=== PATIENT | female | born 1990 | race Caucasian/White ===

== ENCOUNTER 2018-08-06 18:31 | Emergency (ER) | payer OTHER ==
[2018-08-06 19:00] VITALS: BMI 23.8
--- NOTE | 2018-08-06 19:08 | PDOC ---
History of Present Illness - General Chief Complaint: Vaginal Bleeding Stated Complaint: MISCARRIAGE Time Seen by Provider: 08/06/18 19:08 Past History - Past Medical History Allergies/Adverse Reactions: Allergies Allergy/AdvReac Type Severity Reaction Status Date / Time amoxicillin Allergy Mild diarrhea Verified 08/06/18 18:55 Penicillins Allergy Mild diarrhea Verified 08/06/18 18:55 chlordiazepoxide AdvReac Verified 08/06/18 18:55 [From Librium] ziprasidone HCl [From Geodon] AdvReac Verified 08/06/18 18:55 ziprasidone mesylate AdvReac Verified 08/06/18 18:55 [From Geodon] Home Medications: Ambulatory Orders Lurasidone HCl [Latuda -] 20 mg PO DAILY 05/07/16 Lamotrigine [Lamictal] 100 mg PO BID 07/25/16 Albuterol Sulfate Inhaler - [Ventolin HFA Inhaler -] 2 inh PO Q4H PRN #1 inhaler 08/20/16 Anemia: No Asthma: Yes (Albuterol) Cancer: No Cardiac Disorders: No CVA: No COPD: No CHF: No Dementia: No Diabetes: No GI Disorders: No Disorders: No HTN: No Hypercholesterolemia: No Kidney Stones: No Liver Disease: No Seizures: No Thyroid Disease: No - Surgical History Abdominal Surgery: No Appendectomy: No Cardiac Surgery: No Cholecystectomy: No Lung Surgery: No Neurologic Surgery: No Orthopedic Surgery: Yes (CLUB FOOT [LEFT ] AT ) - Reproductive History PID: No - Immunization History Immunization Up to Date: No - Suicide/Smoking/Psychosocial Hx Smoking History: Current every day smoker Have you smoked in the past 12 months: Yes Number of Cigarettes Smoked Daily: 10 Cigars Per Day: 0 Information on smoking cessation initiated: No 'Breaking Loose' booklet given: 04/25/18 Hx Alcohol Use: No Drug/Substance Use Hx: No Substance Use Type: Alcohol, Cocaine, Heroin, Marijuana Hx Substance Use Treatment: Yes (Rehab facility in [facility]) *Physical Exam - Vital Signs Last Vital Signs Temp Pulse Resp BP Pulse Ox 98.4 F 89 18 126/58 L 100 08/06/18 18:55 08/06/18 18:55 08/06/18 18:55 08/06/18 18:55 08/06/18 18:55
--- NOTE | 2018-08-06 19:33 | PDOC ---
History of Present Illness - General Chief Complaint: Vaginal Bleeding Stated Complaint: MISCARRIAGE Time Seen by Provider: 08/06/18 19:08 - History of Present Illness Initial Comments: 28 year old [id number] ( 3 years prior) with history of substance dependency (IV cocaine, heroine, and EtOH currently on suboxone) presenting with malodorous urine, dark urine, chills, and vaginal bleeding. Patient states that she has had approximately one week of chills with malodorous, dark urine, and mild nausea. She also states that she had a regularly timed but extended menses lasting from 07/27-08/03 (typically lasting 2-3 days). Today at approximately 18:00 she had sudden onset right lower quadrant pain with bright red vaginal bleeding. She denies any active active vomiting, diarrhea, headache , chest pain, SOB, or other symptoms. States that she used some substances during this month. She just got her insurance back so doesn't have any primary care or OBGyn follow up. 08/06/18 19:25 Past History - Past Medical History Allergies/Adverse Reactions: Allergies Allergy/AdvReac Type Severity Reaction Status Date / Time amoxicillin Allergy Mild diarrhea Verified 08/06/18 18:55 Penicillins Allergy Mild diarrhea Verified 08/06/18 18:55 chlordiazepoxide AdvReac Verified 08/06/18 18:55 [From Librium] ziprasidone HCl [From Geodon] AdvReac Verified 08/06/18 18:55 ziprasidone mesylate AdvReac Verified 08/06/18 18:55 [From Geodon] Home Medications: Ambulatory Orders Lurasidone HCl [Latuda -] 20 mg PO DAILY 05/07/16 Lamotrigine [Lamictal] 100 mg PO BID 07/25/16 Albuterol Sulfate Inhaler - [Ventolin HFA Inhaler -] 2 inh PO Q4H PRN #1 inhaler 08/20/16 Anemia: No Asthma: Yes (Albuterol) Cancer: No Cardiac Disorders: No CVA: No COPD: No CHF: No Dementia: No Diabetes: No GI Disorders: No Disorders: No HTN: No Hypercholesterolemia: No Kidney Stones: No Liver Disease: No Seizures: No Thyroid Disease: No - Surgical History Abdominal Surgery: No Appendectomy: No Cardiac Surgery: No Cholecystectomy: No Lung Surgery: No Neurologic Surgery: No Orthopedic Surgery: Yes (CLUB FOOT [LEFT ] AT ) - Reproductive History PID: No - Immunization History Immunization Up to Date: No - Suicide/Smoking/Psychosocial Hx Smoking History: Current every day smoker Have you smoked in the past 12 months: Yes Number of Cigarettes Smoked Daily: 10 Cigars Per Day: 0 Information on smoking cessation initiated: No 'Breaking Loose' booklet given: 04/25/18 Hx Alcohol Use: No Drug/Substance Use Hx: No Substance Use Type: Alcohol, Cocaine, Heroin, Marijuana Hx Substance Use Treatment: Yes (Rehab facility in [facility]) Review of Systems - Review of Systems Constitutional: Yes: Chills. No: Diaphoresis, Fever, Loss of Appetite HEENTM: No: Eye Pain, Blurred Vision, Tearing Respiratory: No: Cough, Orthopnea, Shortness of Breath Cardiac (ROS): No: Chest Pain, Edema, Irregular Heart Rate ABD/GI: Yes: Nausea, Abdominal cramping. No: Abdominal Distended, Diarrhea, Poor Appetite, Poor Fluid Intake, Vomiting : No: Burning, Dysuria, Discharge, Frequency, Hematuria Musculoskeletal: Yes: Back Pain. No: Muscle Weakness Integumentary: Yes: Lesions. No: Flushing, Pruritus, Rash Neurological: No: Headache, Numbness, Paresthesia Psychiatric: Yes: Emotional Problems Endocrine: No: Increased Hunger, Increased Thirst, Increased Urine Hematologic/Lymphatic: No: Anemia, Blood Clots, Easy Bleeding, Easy Bruising, Bleeding Diathesis *Physical Exam - Vital Signs Last Vital Signs Temp Pulse Resp BP Pulse Ox 98.4 F 89 18 126/58 L 100 08/06/18 18:55 08/06/18 18:55 08/06/18 18:55 08/06/18 18:55 08/06/18 18:55 - Physical Exam General Appearance: Yes: Nourished, Appropriately Dressed. No: Apparent Distress HEENT: positive: EOMI, CRISTIANE, Normal ENT Inspection, Normal Voice Neck: positive: Trachea midline, Normal Thyroid, Supple. negative: Tender, Rigid Respiratory/Chest: positive: Lungs Clear, Normal Breath Sounds. negative: Chest Tender, Respiratory Distress, Accessory Muscle Use Cardiovascular: positive: Regular Rhythm, Regular Rate Female Pelvic Exam: positive: cervical os closed, adnexal tenderness (right and left adnexal tenderness), vaginal bleeding (mild amount of blood in posterior vaginal vault with mild actrive bleeding from the cervix. Small clots in the vault). negative: normal external exam (dried blood around vagina), CMT, discharge, lesions Gastrointestinal/Abdominal: positive: Normal Bowel Sounds, Tender Musculoskeletal: positive: Normal Inspection. negative: Decreased Range of Motion Extremity: positive: Normal Capillary Refill, Normal Inspection, Normal Range of Motion. negative: Tender Integumentary: positive: Normal Color, Dry, Warm, Other (small 2 cm rash on right hip which has a small swollen spot in the center) Neurologic: positive: Fully Oriented, Alert, Normal Mood/Affect, Normal Response , Motor Strength 02/28 ED Treatment Course - LABORATORY CBC & Chemistry Diagram: 08/06/18 19:42 08/06/18 19:42 Medical Decision Making - Medical Decision Making 28 year old female with vaginal bleeding for the past few hours. TVUS negative for IUP and did not visualize gross enlargement of ovaries. However, quant at 3300 and cervix is closed. Differential includes ectopic or complete . Patient had an extended episode of vaginal bleeding for approximately 6-7 days a few days prior which she attributed to menses but this may have been an actual miscarriage. Given her cocaine positive utox,this was likely an secondary to sympathomimetic usage. However, right adnexal tenderness with positive beta is still concerning for an unvisualized ectopic. Labs and VSS. Discussed patient with Dr. Negron and he agreed that patient should be seen in two days for a repeat [facility] [place] 08/06/18 22:34 *DC/Admit/Observation/Transfer Diagnosis at time of Disposition: Vaginal bleeding in - Discharge Dispostion Disposition: HOME Condition at time of disposition: Stable Decision to Admit order: No - Referrals Referrals: Neptali Elizondo MD [Staff Physician] - - Patient Instructions Printed Discharge Instructions: DI for Ectopic , DI for Miscarriage Additional Instructions: You may have a that is not in your uterus or you may have had a complete . Our imaging and labs are not completely clear on which it is. It is CRITICAL that you return in two days to have your blood checked again to make sure your blood levels are going down. Please return to the ED right away if you have a lot more bleeding, fevers, chills, or a lot more pain. - Post Discharge Activity
[2018-08-06 19:50] LABS: BASO % 0.7 % (0-2.0); EOS % 1.2 % (0-4.5); HEMATOCRIT 39.4 % (32.4-45.2); HEMOGLOBIN 13.1 GM/dL (10.7-15.3); LYMPH % 29.5 % (8-40); MCH 28.8 pg (25.7-33.7); MCHC 33.2 g/dl (32.0-36.0); MEAN CELL VOLUME 86.8 fl (80-96); MEAN PLT VOLUME 9.3 fl (7.5-11.1); MONO % 6.1 % (3.8-10.2); NEUT % 62.5 % (42.8-82.8); PLATELET COUNT 237 K/MM3 (134-434); RBC 4.54 M/mm3 (3.60-5.2); RDW 15.8 % (11.6-15.6); WHITE BLOOD COUNT 7.2 K/mm3 (4.0-10.0)
[2018-08-06 20:00] LABS: URINE APPEARANCE CLOUDY; URINE BILIRUBIN NEGATIVE (<2.0 mg/dL); URINE COLOR AMBER; URINE GLUCOSE (UA) NEGATIVE (NEGATIVE); URINE KETONE TRACE (NEGATIVE); URINE LEUK ESTERASE 2+ (NEGATIVE); URINE NITRITE POSITIVE (NEGATIVE); URINE PROTEIN 1+ (NEGATIVE); URINE UROBILINOGEN NEGATIVE mg/dL (0.2-1.0)
[2018-08-06] MEDS ORDERED: SODIUM CHLORIDE 1,000 ML IV STA (20:15)
[2018-08-06] MEDS ORDERED: ONDANSETRON 4 MG/2 ML VIAL IVPUSH ONE (20:18)
[2018-08-06 20:22] LABS: INR 0.95 (0.83-1.09); PROTHROMBIN TIME (PATIENT) 11.2 SEC (9.7-13.0)
[2018-08-06] MEDS ORDERED: ONDANSETRON 4 MG/2 ML VIAL ONE (21:04)
[2018-08-06 21:20] LABS: ALBUMIN 3.9 g/dl (3.4-5.0); ALK PHOS 58 U/L (45-117); ANION GAP 7 MMOL/L (8-16); BILIRUBIN,TOTAL 0.5 mg/dL (0.2-1); BLOOD UREA NITROGEN 16 mg/dL (7-18); CALCIUM 9.3 mg/dL (8.5-10.1); CHLORIDE 108 mmol/L (98-107); CO2 26 mmol/L (21-32); CREATININE 0.6 mg/dL (0.55-1.3); GLUCOSE,RANDOM 79 mg/dL (74-106); METHADONE, UR NEGATIVE ng/ml (CUTOFF=300); OPIATES, URI NEGATIVE ng/ml (CUTOFF=300); PHENCYCLIDINE,URINE NEGATIVE ng/ml (CUTOFF=25); POTASSIUM 3.9 mmol/L (3.5-5.1); SGOT/AST 24 U/L (15-37); SGPT/ALT 26 U/L (13-61); SODIUM 141 mmol/L (136-145); URINE AMPHETAMINES NEGATIVE ng/ml (CUTOFF=500); URINE BARBITURATES NEGATIVE ng/ml (CUTOFF=200); URINE BENZODIAZEPINES NEGATIVE ng/ml (CUTOFF=200)
[2018-08-06 21:22] LABS: EPI CELLS FEW /HPF (FEW); URINE BACTERIA MANY /hpf (NONE SEEN); URINE MUCUS MODERATE
[2018-08-06 21:27] LABS: COCAINE, UR POSITIVE ng/ml (CUTOFF=300)
[2018-08-06] MEDS ORDERED: ACETAMINOPHEN 500 MG TABLET (FP) PO ONE (23:05)
[2018-08-06] MEDS ORDERED: ACETAMINOPHEN 325 MG TABLET (FP) ONE (23:06)
--- NOTE | 2018-08-06 23:08 | PDOC ---
Attending Attestation - Resident Resident Name: VikJovanysavanna - ED Attending Attestation I have performed the following: I have examined & evaluated the patient, The case was reviewed & discussed with the resident, I agree w/resident's findings & plan, Exceptions are as noted - HPI HPI: 08/06/18 23:05 28yoF presents w/ RLQ pain and off-cycle vaginal bleeding x today. also reports longer than normal period this month. Found to be UPT + in the ER, pt was unaware that she was . AF, VSS NAD, well appearing pelvic examination as per resident note 28yoF r/o ectopic. - serum beta - official EVUS - INLETTER
[2018-08-06 23:52] VITALS: BP 124/68; PULSE 71; TEMP 98.2
== END 2018-08-06 23:53 | disposition home or self-care (01) ==
LOC: JER 18:31
PROC: 3E0337Z Introduction of Electrolytic and Water Balance Substance into Peripheral Vein, Percutaneous Approach (ICD-10-PCS; principal; 2018-08-06)
PROC: 3E033GC Introduction of Other Therapeutic Substance into Peripheral Vein, Percutaneous Approach (ICD-10-PCS; 2018-08-06)
DX: O26.891 Other specified pregnancy related conditions, first trimester (principal); O20.8 Other hemorrhage in early pregnancy; Z3A.00 Weeks of gestation of pregnancy not specified; Z87.19 Personal history of other diseases of the digestive system; F17.210 Nicotine dependence, cigarettes, uncomplicated; F19.10 Other psychoactive substance abuse, uncomplicated; Z72.89 Other problems related to lifestyle
CPT/HCPCS: 36415; 76817-TC; 80053; 80307; 81003; 81015; 84702; 84703; 85025; 85610; 86850; 86900; 86901; 87086; 87186; 99282-25; J7030

== ENCOUNTER 2018-08-12 12:33 | Emergency (ER) | payer OTHER ==
[2018-08-12 12:59] VITALS: BMI 23.8
--- NOTE | 2018-08-12 13:46 | PDOC ---
History of Present Illness - General Chief Complaint: Pain Stated Complaint: VAGINAL BLEEDING Time Seen by Provider: 08/12/18 13:24 History Source: Patient - History of Present Illness Timing/Duration: reports: constant Past History - Past Medical History Allergies/Adverse Reactions: Allergies Allergy/AdvReac Type Severity Reaction Status Date / Time amoxicillin Allergy Mild diarrhea Verified 08/12/18 12:56 Penicillins Allergy Mild diarrhea Verified 08/12/18 12:56 chlordiazepoxide AdvReac Verified 08/12/18 12:56 [From Librium] ziprasidone HCl [From Geodon] AdvReac Verified 08/12/18 12:56 ziprasidone mesylate AdvReac Verified 08/12/18 12:56 [From Geodon] Home Medications: Ambulatory Orders Lurasidone HCl [Latuda -] 20 mg PO DAILY 05/07/16 Lamotrigine [Lamictal] 100 mg PO BID 07/25/16 Albuterol Sulfate Inhaler - [Ventolin HFA Inhaler -] 2 inh PO Q4H PRN #1 inhaler 08/20/16 Nitrofurantoin Monohyd/M-Cryst [Macrobid -] 100 mg PO BID #14 capsule 08/07/18 Nitrofurantoin Monohyd/M-Cryst [Macrobid -] 100 mg PO BID #13 capsule 08/12/18 Anemia: No Asthma: Yes (Albuterol) Cancer: No Cardiac Disorders: No CVA: No COPD: No CHF: No Dementia: No Diabetes: No GI Disorders: No Disorders: No HTN: No Hypercholesterolemia: No Kidney Stones: No Liver Disease: No Seizures: No Thyroid Disease: No - Surgical History Abdominal Surgery: No Appendectomy: No Cardiac Surgery: No Cholecystectomy: No Lung Surgery: No Neurologic Surgery: No Orthopedic Surgery: Yes (CLUB FOOT [LEFT ] AT ) - Reproductive History PID: No - Suicide/Smoking/Psychosocial Hx Smoking History: Current every day smoker Have you smoked in the past 12 months: Yes Number of Cigarettes Smoked Daily: 10 Cigars Per Day: 0 Information on smoking cessation initiated: No 'Breaking Loose' booklet given: 04/25/18 Hx Alcohol Use: Yes Drug/Substance Use Hx: Yes Substance Use Type: Alcohol, Cocaine, Heroin, Marijuana Hx Substance Use Treatment: Yes (Rehab facility in [facility]) Abd/GI Specific PMHX - Complaint Specific PMHX Hepatitis: No Pancreatitis: No Review of Systems - Review of Systems Constitutional: No: Chills, Fever ABD/GI: Yes: Abdominal cramping. No: Nausea, Vomiting : Yes: Other (foul urine). No: Dysuria Musculoskeletal: Yes: Back Pain *Physical Exam - Vital Signs Last Vital Signs Temp Pulse Resp BP Pulse Ox 98.5 F 114 H 18 106/62 97 08/12/18 12:57 08/12/18 12:57 08/12/18 12:57 08/12/18 12:57 08/12/18 12:57 - Physical Exam General Appearance: Yes: Appropriately Dressed. No: Apparent Distress HEENT: positive: Normal Voice Neck: positive: Supple Respiratory/Chest: negative: Respiratory Distress Female Pelvic Exam: positive: normal external exam, cervical os closed, other ( small amount dark brown discharge). negative: CMT, adnexal tenderness Gastrointestinal/Abdominal: positive: Soft. negative: Tender Musculoskeletal: negative: CVA Tenderness Integumentary: positive: Dry, Warm Neurologic: positive: Fully Oriented, Alert, Normal Mood/Affect ED Treatment Course - RADIOLOGY Radiology Studies Ordered: Category Date Time Status TRANSVAGINAL ULTRASOUND US [US] Stat Ultrasound 08/12/18 13:26 Ordered Medical Decision Making - Medical Decision Making 08/12/18 13:45 28-year-old female, polysubstance abuse, , (s/p spon AB), currently , but unsure how far along as patient did have a period 07/27/2018, but was not a normal period per pt. Patient had shown up in ED about a week ago with vaginal bleeding and abdominal pain and was diagnosed with w/ beta over 3000 with no IUP on ultrasound. Of note, patient is Rh+. Was also diagnosed with UTI, but patient states she did not fill prescription for macrobid (sen on ucx) because she states she was not told prescription was sent. Also failed to follow-up in 2 days for unclear reasons, now here with ongoing vaginal bleeding and abdominal pains though states symptoms have improved. Also complaining of some lower back pain. Denies blood clots, nausea , vomiting, fever or chills See exam R/o ectopic Beta >3 K w/ no IUP/adexnal masses on US 10/11/18 +UTI but has not started abx sent to pharmacy Did not f/u fpr reassessment for unclear reasons Tachy to 114 at triage, improved without intervention, stable otherwise w/ benign abd and dark brown dc in vault (?old blood", os closed -dose of macrobid in ED -RH + per records -rpt beta and US 08/12/18 15:30 Beta today >2500. Ultrasound report pending 08/12/18 16:13 US read as no viable IUP, w/ possible Blood Clots in Uterine Cavity. Patient Informed of Results and told Findings Compatible with Miscarriage. Given [facility] This Week. Perception for Macrobid Sent to Pharmacy. Reasons to Return to ER discussed with Patient *DC/Admit/Observation/Transfer Diagnosis at time of Disposition: Threatened - Discharge Dispostion Disposition: HOME Condition at time of disposition: Fair - Prescriptions Prescriptions: Nitrofurantoin Monohyd/M-Cryst [Macrobid -] 100 mg PO BID #13 capsule - Referrals - Patient Instructions Additional Instructions: Your re-assesment here points to a miscarriage. 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 Please take as directed - Post Discharge Activity
[2018-08-12] MEDS ORDERED: ACETAMINOPHEN 325 MG TABLET (FP) PO ONE (14:22)
[2018-08-12] MEDS ORDERED: NITROFURANTOIN MACROCRYSTAL 50 MG CAPSULE (FP) ONE (14:22)
[2018-08-12] MEDS ORDERED: ACETAMINOPHEN 325 MG TABLET (FP) ONE (14:22)
[2018-08-12 14:25] LABS: URINE APPEARANCE CLOUDY; URINE BILIRUBIN NEGATIVE (<2.0 mg/dL); URINE COLOR AMBER; URINE GLUCOSE (UA) NEGATIVE (NEGATIVE); URINE KETONE NEGATIVE (NEGATIVE); URINE LEUK ESTERASE 2+ (NEGATIVE); URINE NITRITE NEGATIVE (NEGATIVE); URINE PROTEIN NEGATIVE (NEGATIVE)
[2018-08-12] MEDS ORDERED: NITROFURANTOIN MACROCRYSTAL 50 MG CAPSULE (FP) PO SCH (14:30)
[2018-08-12 14:32] LABS: EPI CELLS RARE /HPF (FEW); URINE BACTERIA RARE /hpf (NONE SEEN); URINE MUCUS FEW; YEAST FEW
[2018-08-12 15:49] VITALS: BP 107/60; PULSE 77; TEMP 97.6
== END 2018-08-12 16:22 | disposition home or self-care (01) ==
LOC: JER 12:33
DX: M54.5 Low back pain (principal); O26.891 Other specified pregnancy related conditions, first trimester; Z3A.00 Weeks of gestation of pregnancy not specified; O20.0 Threatened abortion
CPT/HCPCS: 36415; 76830-TC; 81003; 81015; 84702; 99283-25

== ENCOUNTER 2018-08-31 19:05 | Inpatient (IN) | payer OTHER ==
--- NOTE | 2018-08-31 21:56 | HP ---
COWS - Scale Resting Pulse: 2= ME 101-120 Sweatin= Chills/Flushing Restless Observation: 3= Extraneous Movement Pupil Size: 1= Pupils >than Normal Bone or Joint Aches: 1= Mild Discomfort Runny Nose/ Eye Tearin= Runny Nose/Eyes GI Upset > 30mins: 1= Stomach Cramp Tremor Observation: 2= Slight Tremor Visible Yawning Observation: 1= 1-2x During Session Anxiety or Irritability: 2=Irritable/Anxious Goose Flesh Skin: 0=Smooth Skin COWS Score: 16 CIWA Score - CIWA Score Nausea/Vomitin Muscle Tremors: 3 Anxiety: 3 Agitation: 3 Paroxysmal Sweats: 3 Orientation: 0-Oriented Tacttile Disturbances: 3-Moderate Itch/Numb/Burn Auditory Disturbances: 0-None Visual Disturbances: 0-None Headache: 1-Very Mild CIWA-Ar Total Score: 19 Admission ROS BHS - HPI Chief Complaint: " things are getting out of hand " opioid, alcohol and benzo withdrawal symptoms Allergies/Adverse Reactions: Allergies Allergy/AdvReac Type Severity Reaction Status Date / Time amoxicillin Allergy Mild diarrhea Verified 08/12/18 12:56 Penicillins Allergy Mild diarrhea Verified 08/12/18 12:56 chlordiazepoxide AdvReac Verified 08/12/18 12:56 [From Librium] ziprasidone HCl [From Geodon] AdvReac Verified 08/12/18 12:56 ziprasidone mesylate AdvReac Verified 08/12/18 12:56 [From Geodon] History of Present Illness: 28 yo female with hx of nicotine, alcohol, heroin (nasal), marijuana, cocaine, xanax, street BUP, li / ecstasy is here for detox, this is is one of multiple admissions, last detox [facility] detox 04/25/18 -04/27/18 left AMA. Patient was evaluated 08/12/18 for UTI and miscarriage, US read as no viable IUP (see notes from Morgan Flores). Patient was discharged on macrobid for UTI, in which patient reports she did not citrus picker the prescription. PMHX: asthma, depression, bipolar d/o ( non-adherence with meds), reports worsening depression and increase drug use after miscarriage. Denies suicidal / homicidal ideation or hx of suicide attempts. Reports ETOH blackout two days ago. Longest period of sobriety one year, reports relapsed in April 2018. Exam Limitations: No Limitations - Ebola screening Have you traveled outside of the country in the last 21 days: No (N) Have you had contact with anyone from an Ebola affected area: No Do you have a fever: No - Review of Systems Constitutional: Chills, Loss of Appetite, Changes in sleep, Weakness, Unintentional Wgt. Loss EENT: reports: Nose Congestion Respiratory: reports: SOB with Exertion Cardiac: reports: No Symptoms Reported GI: reports: Constipated, Poor Appetite, Poor Fluid Intake, Abdominal cramping : reports: Dysuria Musculoskeletal: reports: Back Pain, Joint Pain Integumentary: reports: Dryness, Pruritus, Sweating Neuro: reports: See HPI, Headache Endocrine: reports: Increased Thirst Hematology: reports: No Symptoms Reported Psychiatric: reports: Orientated x3, Anxious Other Systems: Reviewed and Negative Patient History - Patient Medical History Hx Anemia: No Hx Asthma: Yes (Albuterol) Hx Chronic Obstructive Pulmonary Disease (COPD): No Hx Cancer: No Hx Cardiac Disorders: No Hx Congestive Heart Failure: No Hx Hypertension: No Hx Hypercholesterolemia: No Hx Pacemaker: No HX Cerebrovascular Accident: No Hx Seizures: No Hx Dementia: No Hx Diabetes: No Hx Gastrointestinal Disorders: No Hx Liver Disease: No Hx Genitourinary Disorders: No Hx Sexually Transmitted Disorders: No Hx Renal Disease (ESRD): No Hx Thyroid Disease: No Hx Human Immunodeficiency Virus (HIV): No (Negative 2017) Hx Hepatitis C: No Hx Depression: Yes (Latuda, lamictile) Hx Suicide Attempt: No (Denies suicide attempt and suicidal ideation at this time) Hx Bipolar Disorder: Yes (Latuda, lamictile) Hx Schizophrenia: No - Patient Surgical History Past Surgical History: Yes Hx Neurologic Surgery: No Hx Cataract Extraction: No Hx Cardiac Surgery: No Hx Lung Surgery: No Hx Breast Surgery: No Hx Breast Biopsy: No Hx Abdominal Surgery: No Hx Appendectomy: No Hx Cholecystectomy: No Hx Genitourinary Surgery: No Hx Section: No Hx Orthopedic Surgery: Yes (CLUB FOOT [LEFT ] AT ) Hx Hysterectomy: No Anesthesia Reaction: No - PPD History Previous Implant?: No Documented Results: Negative w/o proof Date: 05/07/16 PPD to be Administered?: Yes - Reproductive History Patient is a Female of Child Bearing Age (11 -55 yrs old): Yes Last Menstrual Period: 08/03/18 Patient : No (see HPI ) - Smoking Cessation Smoking history: Current every day smoker Have you smoked in the past 12 months: Yes Aproximately how many cigarettes per day: 20 Cigars Per Day: 0 Hx Chewing Tobacco Use: No Initiated information on smoking cessation: Yes 'Breaking Loose' booklet given: 08/31/18 - Substance & Tx. History Hx Alcohol Use: Yes Hx Substance Use: Yes Substance Use Type: Alcohol, Cocaine, Heroin, Marijuana, Tranquilizers Hx Substance Use Treatment: Yes ([facility] detox 04/25/18 -04/27/18) - Substances Abused Alcohol Route: Oral Frequency: Daily Amount used: 1 pint liquor Age of first use: 13 Date of Last Use: 08/31/18 Heroin Route: Inhalation Frequency: Daily Amount used: 3 bags Age of first use: 23 Date of Last Use: 08/31/18 Cocaine Route: Inhalation Frequency: Daily Amount used: 2-3 grams Age of first use: 15 Date of Last Use: 08/31/18 klonopin Route: Oral Frequency: Daily Amount used: 3 x2 mg Age of first use: 22 Date of Last Use: 08/31/18 Marijuana/Hashish Route: Smoking Frequency: Daily Amount used: 1 blunt Age of first use: 13 Date of Last Use: 08/31/18 street suboxone Route: Oral Frequency: Daily Amount used: 8 mg Age of first use: 23 Date of Last Use: 08/25/18 Ectasy Route: Oral Frequency: 3-6 times per week Amount used: 1 - 2 pills Age of first use: 18 Date of Last Use: 08/29/18 Family Disease History - Family Disease History Family Disease History: Diabetes: Mother, CA: Grandparent Admission Physical Exam BHS - Physical General Appearance: Yes: Disheveled, Moderate Distress, Thin, Sweating, Anxious HEENTM: Yes: EOMI, Hearing grossly Normal, Normal ENT Inspection, Normocephalic , Normal Voice, CRISTIANE, Pharynx Normal, Tm's normal, Other (cheilithis) Respiratory: Yes: Chest Non-Tender, Lungs Clear, Normal Breath Sounds, No Respiratory Distress, No Accessory Muscle Use Neck: Yes: Within Normal Limits Breast: Yes: Breast Exam Deferred Cardiology: Yes: Regular Rhythm, Tachycardia Abdominal: Yes: Normal Bowel Sounds, Non Tender, Flat, Soft Genitourinary: Yes: Dysuria Back: Yes: Normal Inspection Musculoskeletal: Yes: full range of Motion, Gait Steady, Pelvis Stable, Back pain Extremities: Yes: Normal Capillary Refill, Normal Inspection, Normal Range of Motion, Non-Tender Neurological: Yes: diagrammer II-XII NML intact, Fully Oriented, Alert, Motor Strength 5/5, Depressed Affect Integumentary: Yes: Normal Color, Warm, Diaphoresis, Other (ecchymosis right arm attributes to IV given in ED on 08/12) Lymphatic: Yes: Within Normal Limits - Addiitonal Findings: Hospital 08/12/18 [facility] discharge reviewed with patient. patient [facility] discharge from detox. Patient verbalizes understanding. - Diagnostic (1) UTI (urinary tract infection) Current Visit: Yes Status: Acute Qualifiers: Urinary tract infection type: site unspecified (2) Cocaine dependence Current Visit: Yes Status: Acute Qualifiers: Substance use status: uncomplicated Qualified Code(s): F14.20 - Cocaine dependence, uncomplicated (3) Opioid dependence with withdrawal Current Visit: Yes Status: Acute (4) Alcohol dependence with uncomplicated withdrawal Current Visit: Yes Status: Chronic (5) Asthma Current Visit: Yes Status: Chronic Qualifiers: Asthma severity: unspecified severity Asthma complication type: uncomplicated (6) Cannabis dependence, uncomplicated Current Visit: Yes Status: Acute (7) Depression Current Visit: Yes Status: Suspected Qualifiers: Depression Type: unspecified Qualified Code(s): F32.9 - Major depressive disorder, single episode, unspecified (8) Nicotine dependence Current Visit: Yes Status: Chronic Qualifiers: Nicotine product type: cigarettes Substance use status: uncomplicated Qualified Code(s): F17.210 - Nicotine dependence, cigarettes, uncomplicated (9) Sedative, hypnotic or anxiolytic dependence with withdrawal, uncomplicated Current Visit: Yes Status: Acute Cleared for Admission BHS - Detox or Rehab S Level of Care: Medically Managed Detox Regimen/Protocol: Methadone/Valium BHS Breath Alcohol Content Breath Alcohol Content: 0
[2018-08-31] MEDS ORDERED: diazePAM 5 MG TABLET PO SCH (22:00)
[2018-08-31] MEDS ORDERED: MELATONIN 5 MG TABLETS PO PRN (22:00)
[2018-08-31] MEDS ORDERED: diazePAM 5 MG TABLET PO PRN (22:08)
[2018-08-31] MEDS ORDERED: MAG HYDROX/AL HYDROX/SIMETH 30 ML UNIT-DOSE CUP PO PRN (22:08)
[2018-08-31] MEDS ORDERED: MAGNESIUM HYDROX 2400MG/30ML ORAL SUSPENSION 30 ML CUP PO PRN (22:08)
[2018-08-31] MEDS ORDERED: LOPERAMIDE HCL 2 MG CAPSULE PO PRN (22:08)
[2018-08-31] MEDS ORDERED: MENTHOL/PHENOL 1 EACH UD MM PRN (22:08)
[2018-08-31] MEDS ORDERED: NICOTINE POLACRILEX 2 MG GUM BC PRN (22:08)
[2018-08-31] MEDS ORDERED: guaiFENesin/D-METHORPHAN HB 10 ML UNIT-DOSE CUPS PO PRN (22:08)
[2018-08-31] MEDS ORDERED: MAGNESIUM CITRATE 300 ML BOTTLE PO PRN (22:08)
[2018-08-31] MEDS ORDERED: diazePAM 5 MG TABLET PO ONE (22:08)
[2018-08-31] MEDS ORDERED: ACETAMINOPHEN 325 MG TABLET (FP) PO PRN (22:08)
[2018-08-31] MEDS ORDERED: METHADONE HCL 10 MG TABLET (FOR DETOX USE ONLY) PO ONE ×2 (22:08→23:00)
[2018-08-31] MEDS ORDERED: P-EPHED 60MG/TRIPROLIDI 2.5MG TABLET PO PRN (22:08)
[2018-08-31] MEDS ORDERED: diphenhydrAMINE HCL 25 MG CAPSULE (FP) PO PRN (22:15)
[2018-08-31 23:02] VITALS: BMI 23.2
[2018-09-01] MEDS ORDERED: METHADONE HCL 10 MG TABLET (FOR DETOX USE ONLY) PO ONE ×3 (01:21→23:00)
[2018-09-01] MEDS ORDERED: diazePAM 5 MG TABLET PO ONE (01:21)
[2018-09-01] MEDS: NITROFURANTOIN MACROCRYSTAL 50 MG CAPSULE (FP) PO SCH ×5 (01:45→23:03)
[2018-09-01] MEDS: diazePAM 5 MG TABLET PO PRN ×3 (04:15→17:23)
[2018-09-01] MEDS: diazePAM 5 MG TABLET PO SCH ×3 (05:29→22:25)
[2018-09-01] MEDS ORDERED: METHADONE HCL 10 MG TABLET (FOR DETOX USE ONLY) PO SCH (10:00)
[2018-09-01] MEDS: PRENATAL VITAMINS W/ FOLIC ACID TABLET (FP) PO SCH (10:36)
[2018-09-01] MEDS: NICOTINE 21 MG/24 HOURS TOPICAL PATCH TD SCH (10:38)
--- NOTE | 2018-09-01 10:55 | PN ---
[facility] CIWA - CIWA Score Nausea/Vomitin-No Nausea/No Vomiting Muscle Tremors: 4-Moderate,w/Arms Extend Anxiety: 3 Agitation: 3 Paroxysmal Sweats: 3 Orientation: 0-Oriented Tacttile Disturbances: 0-None Auditory Disturbances: 0-None Visual Disturbances: 0-None Headache: 0-None Present CIWA-Ar Total Score: 13 BHS COWS - Scale Resting Pulse: 1= [place] 81-100 Sweatin=Flushed/Facial Moisture Restless Observation: 1= Difficult to Sit Still Pupil Size: 0= Normal to Room Light Bone or Joint Aches: 2= Severe Diffuse Aches Runny Nose/ Eye Tearin= Nasal Congestion GI Upset > 30mins: 0= None Tremor Observation of Outstretched Hands: 2= Slight Tremor Visible Yawning Observation: 2= >3x During Session Anxiety or Irritability: 2=Irritable/Anxious Goose Flesh Skin: 0=Smooth Skin COWS Score: 13 [facility] Progress Note (SOAP) Subjective: shakes sweats interrupted sleep body aches restless anxiety irritable Objective: 09/01/18 10:55 Vital Signs Temperature 98.9 F 09/01/18 09:50 Pulse Rate 82 09/01/18 09:50 Respiratory Rate 18 09/01/18 09:50 Blood Pressure 119/66 09/01/18 09:50 O2 Sat by Pulse Oximetry (%) labs pending aaox3 lying in bed no acute distress Assessment: 09/01/18 10:59 withdrawal sx Plan: continue detox increase fluids labs pending
[2018-09-01] MEDS: IBUPROFEN 400 MG TABLET (FP) PO PRN ×2 (11:34→22:26)
[2018-09-01 11:42] LABS: HEMATOCRIT 37.7 % (32.4-45.2); HEMOGLOBIN 12.2 GM/dL (10.7-15.3); MCH 28.5 pg (25.7-33.7); MCHC 32.4 g/dl (32.0-36.0); MEAN CELL VOLUME 88.1 fl (80-96); MEAN PLT VOLUME 8.8 fl (7.5-11.1); PLATELET COUNT 236 K/MM3 (134-434); RBC 4.28 M/mm3 (3.60-5.2); RDW 16.2 % (11.6-15.6); WHITE BLOOD COUNT 4.7 K/mm3 (4.0-10.0)
[2018-09-01 11:51] LABS: ALBUMIN 3.4 g/dl (3.4-5.0); ALK PHOS 57 U/L (45-117); ANION GAP 9 MMOL/L (8-16); BILIRUBIN,TOTAL 0.4 mg/dL (0.2-1); BLOOD UREA NITROGEN 18 mg/dL (7-18); CALCIUM 8.6 mg/dL (8.5-10.1); CHLORIDE 98 mmol/L (98-107); CO2 31 mmol/L (21-32); CREATININE 0.6 mg/dL (0.55-1.3); GLUCOSE,RANDOM 95 mg/dL (74-106); POTASSIUM 3.3 mmol/L (3.5-5.1); SGOT/AST 24 U/L (15-37); SGPT/ALT 23 U/L (13-61); SODIUM 138 mmol/L (136-145); TOT PROT 6.6 g/dl (6.4-8.2)
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
--- NOTE | 2018-09-01 15:24 | PN ---
[facility] Progress Note Note: Vital Signs Temperature 98.4 F 09/01/18 13:56 Pulse Rate 84 09/01/18 13:56 Respiratory Rate 18 09/01/18 13:56 Blood Pressure 123/80 09/01/18 13:56 O2 Sat by Pulse Oximetry (%) Laboratory Last Values WBC 4.7 K/mm3 (4.0-10.0) 09/01/18 07:00 RBC 4.28 M/mm3 (3.60-5.2) 09/01/18 07:00 Hgb 12.2 GM/dL (10.7-15.3) 09/01/18 07:00 Hct 37.7 % (32.4-45.2) 09/01/18 07:00 MCV 88.1 fl (80-96) 09/01/18 07:00 MCH 28.5 pg (25.7-33.7) 09/01/18 07:00 MCHC 32.4 g/dl (32.0-36.0) 09/01/18 07:00 RDW 16.2 % (11.6-15.6) H 09/01/18 07:00 Plt Count 236 K/MM3 (134-434) 09/01/18 07:00 MPV 8.8 fl (7.5-11.1) 09/01/18 07:00 Sodium 138 mmol/L (136-145) 09/01/18 07:00 Potassium 3.3 mmol/L (3.5-5.1) L 09/01/18 07:00 Chloride 98 mmol/L (98-107) 09/01/18 07:00 Carbon Dioxide 31 mmol/L (21-32) 09/01/18 07:00 Anion Gap 9 MMOL/L (8-16) 09/01/18 07:00 BUN 18 mg/dL (7-18) 09/01/18 07:00 Creatinine 0.6 mg/dL (0.55-1.3) 09/01/18 07:00 Creat Clearance w eGFR > 60 (>60) 09/01/18 07:00 Random Glucose 95 mg/dL (74-106) 09/01/18 07:00 Calcium 8.6 mg/dL (8.5-10.1) 09/01/18 07:00 Total Bilirubin 0.4 mg/dL (0.2-1) 09/01/18 07:00 AST 24 U/L (15-37) 09/01/18 07:00 ALT 23 U/L (13-61) 09/01/18 07:00 Alkaline Phosphatase 57 U/L (45-117) 09/01/18 07:00 Total Protein 6.6 g/dl (6.4-8.2) 09/01/18 07:00 Albumin 3.4 g/dl (3.4-5.0) 09/01/18 07:00 Beta HCG, Quant 11.3 mIU/ml 09/01/18 07:00 RPR Titer Nonreactive (NONREACTIVE) 09/01/18 07:00 HIV 1&2 Antibody Screen Negative 09/01/18 07:00 HIV P24 Antigen Negative 09/01/18 07:00 hypokalemia, repeat K+ in AM Patient continues with pain with urination secondary to UTI, Pyridium ordered Beta 11.3 09/01/18 decrease compared to Beta 08/12/18 >2500 Increase PO fluids continue to monitor urine culture pending
[2018-09-01 16:23] LABS: URINE APPEARANCE TURBID; URINE BILIRUBIN NEGATIVE (<2.0 mg/dL); URINE COLOR YELLOW; URINE GLUCOSE (UA) NEGATIVE (NEGATIVE); URINE KETONE TRACE (NEGATIVE); URINE LEUK ESTERASE 2+ (NEGATIVE); URINE NITRITE NEGATIVE (NEGATIVE); URINE PROTEIN 2+ (NEGATIVE); URINE UROBILINOGEN 4.0 E.U/dl mg/dL (0.2-1.0)
[2018-09-01 16:24] LABS: EPI CELLS RARE /HPF (FEW); URINE BACTERIA MODERATE /hpf (NONE SEEN); URINE MUCUS RARE; YEAST FEW
[2018-09-01] MEDS: LURASIDONE HCL 20 MG TABLET PO SCH (17:24)
[2018-09-01] MEDS ORDERED: PHENAZOPYRIDINE HCL 100 MG TABLET (FP) PO SCH (22:00)
[2018-09-01] MEDS ORDERED: THIAMINE HCL 100 MG TABLET (FP) PO SCH (22:00)
[2018-09-01] MEDS: busPIRone HCL 10 MG TABLET (FP) PO SCH (22:23)
[2018-09-01] MEDS: PHENAZOPYRIDINE HCL 100 MG TABLET (FP) PO SCH ×2 (22:25)
[2018-09-02] MEDS: NITROFURANTOIN MACROCRYSTAL 50 MG CAPSULE (FP) PO SCH ×3 (06:05→17:36)
[2018-09-02] MEDS: diazePAM 5 MG TABLET PO SCH ×2 (06:05→14:43)
[2018-09-02] MEDS: diazePAM 5 MG TABLET PO PRN ×2 (09:39→17:37)
--- NOTE | 2018-09-02 09:52 | EKG ---
Test Reason : Blood Pressure : / mmHG Vent. Rate : 081 BPM Atrial Rate : 081 BPM P-R Int : 148 ms QRS Dur : 086 ms QT Int : 382 ms P-R-T Axes : 063 077 044 degrees QTc Int : 443 ms NORMAL SINUS RHYTHM NORMAL ECG WHEN COMPARED WITH ECG OF 25-APR-2018 21:47, NO SIGNIFICANT CHANGE WAS FOUND Confirmed by SELENA TOLENTINO MD ([id number]) on 09/02/2018 9:52:23 AM Referred By: Confirmed By:SELENA TOLENTINO MD
[2018-09-02] MEDS ORDERED: METHADONE HCL 5 MG TABLET (FOR DETOX USE ONLY) PO SCH (10:00)
[2018-09-02] MEDS ORDERED: METHADONE HCL 10 MG TABLET (FOR DETOX USE ONLY) PO SCH (10:00)
[2018-09-02] MEDS ORDERED: diazePAM 5 MG TABLET PO SCH (10:00)
[2018-09-02] MEDS: IBUPROFEN 400 MG TABLET (FP) PO PRN ×2 (10:18→17:37)
[2018-09-02] MEDS: PRENATAL VITAMINS W/ FOLIC ACID TABLET (FP) PO SCH (10:19)
[2018-09-02] MEDS: busPIRone HCL 10 MG TABLET (FP) PO SCH (10:19)
[2018-09-02] MEDS: NICOTINE 21 MG/24 HOURS TOPICAL PATCH TD SCH (10:20)
[2018-09-02] MEDS: PHENAZOPYRIDINE HCL 100 MG TABLET (FP) PO SCH (10:20)
--- NOTE | 2018-09-02 15:58 | PN ---
[facility] CIWA - CIWA Score Nausea/Vomitin-Mild Nausea/No Vomiting Muscle Tremors: 3 Anxiety: 2 Agitation: 2 Paroxysmal Sweats: 1-Minimal Palms Moist Orientation: 0-Oriented Tacttile Disturbances: 0-None Auditory Disturbances: 0-None Visual Disturbances: 0-None Headache: 0-None Present CIWA-Ar Total Score: 9 BHS COWS - Scale Resting Pulse: 0= [place] 80 or Below Sweatin= Chills/Flushing Restless Observation: 1= Difficult to Sit Still Pupil Size: 0= Normal to Room Light Bone or Joint Aches: 1= Mild Discomfort Runny Nose/ Eye Tearin= Nasal Congestion GI Upset > 30mins: 1= Stomach Cramp Tremor Observation of Outstretched Hands: 1= Tremor [place], Not Seen Yawning Observation: 1= 1-2x During Session Anxiety or Irritability: 2=Irritable/Anxious Goose Flesh Skin: 0=Smooth Skin COWS Score: 9 S Progress Note (SOAP) Subjective: joint pain body aches anxiety sweat wil,or K+ 3.3 repeat K+ repeat hcg Objective: 09/02/18 16:02 Vital Signs Temperature 97.9 F 09/02/18 14:00 Pulse Rate 67 09/02/18 14:00 Respiratory Rate 16 09/02/18 14:00 Blood Pressure 109/75 09/02/18 14:00 O2 Sat by Pulse Oximetry (%) Laboratory Last Values WBC 4.7 K/mm3 (4.0-10.0) 09/01/18 07:00 RBC 4.28 M/mm3 (3.60-5.2) 09/01/18 07:00 Hgb 12.2 GM/dL (10.7-15.3) 09/01/18 07:00 Hct 37.7 % (32.4-45.2) 09/01/18 07:00 MCV 88.1 fl (80-96) 09/01/18 07:00 MCH 28.5 pg (25.7-33.7) 09/01/18 07:00 MCHC 32.4 g/dl (32.0-36.0) 09/01/18 07:00 RDW 16.2 % (11.6-15.6) H 09/01/18 07:00 Plt Count 236 K/MM3 (134-434) 09/01/18 07:00 MPV 8.8 fl (7.5-11.1) 09/01/18 07:00 Sodium 138 mmol/L (136-145) 09/01/18 07:00 Potassium 3.3 mmol/L (3.5-5.1) L 09/01/18 07:00 Chloride 98 mmol/L (98-107) 09/01/18 07:00 Carbon Dioxide 31 mmol/L (21-32) 09/01/18 07:00 Anion Gap 9 MMOL/L (8-16) 09/01/18 07:00 BUN 18 mg/dL (7-18) 09/01/18 07:00 Creatinine 0.6 mg/dL (0.55-1.3) 09/01/18 07:00 Creat Clearance w eGFR > 60 (>60) 09/01/18 07:00 Random Glucose 95 mg/dL (74-106) 09/01/18 07:00 Calcium 8.6 mg/dL (8.5-10.1) 09/01/18 07:00 Total Bilirubin 0.4 mg/dL (0.2-1) 09/01/18 07:00 AST 24 U/L (15-37) 09/01/18 07:00 ALT 23 U/L (13-61) 09/01/18 07:00 Alkaline Phosphatase 57 U/L (45-117) 09/01/18 07:00 Total Protein 6.6 g/dl (6.4-8.2) 09/01/18 07:00 Albumin 3.4 g/dl (3.4-5.0) 09/01/18 07:00 Beta HCG, Quant 11.3 mIU/ml 09/01/18 07:00 Urine Color Yellow 09/01/18 11:50 Urine Appearance Turbid 09/01/18 11:50 Urine pH 7.0 (5.0-8.0) 09/01/18 11:50 Ur Specific [place] 1.020 (1.010-1.035) 09/01/18 11:50 Urine Protein 2+ (NEGATIVE) H 09/01/18 11:50 Urine Glucose (UA) Negative (NEGATIVE) 09/01/18 11:50 Urine Ketones Trace (NEGATIVE) H 09/01/18 11:50 Urine Blood Negative (NEGATIVE) 09/01/18 11:50 Urine Nitrite Negative (NEGATIVE) 09/01/18 11:50 Urine Bilirubin Negative (<2.0 mg/dL) 09/01/18 11:50 Urine Urobilinogen 4.0 e.u/dl mg/dL (0.2-1.0) H 09/01/18 11:50 Ur Leukocyte Esterase 2+ (NEGATIVE) H 09/01/18 11:50 Urine WBC (Auto) 984 /hpf (3-5) 09/01/18 11:50 Urine RBC (Auto) 5 /hpf (0-3) 09/01/18 11:50 Ur Epithelial Cells Rare /HPF (FEW) 09/01/18 11:50 Urine Bacteria Moderate /hpf (NONE SEEN) 09/01/18 11:50 Urine Mucus Rare 09/01/18 11:50 Urine Yeast Few 09/01/18 11:50 RPR Titer Nonreactive (NONREACTIVE) 09/01/18 07:00 HIV 1&2 Antibody Screen Negative 09/01/18 07:00 HIV P24 Antigen Negative 09/01/18 07:00 09/02/18 16:07 lab noted Assessment: 09/02/18 16:07 withdrawal sx Plan: continue detox
[2018-09-02] MEDS: LURASIDONE HCL 20 MG TABLET PO SCH (17:36)
[2018-09-02 18:40] VITALS: BP 122/68; PULSE 70; TEMP 97.7
[2018-09-02] MEDS ORDERED: CYCLOBENZAPRINE HCL 10 MG TABLET (FP) PO PRN (18:40)
--- NOTE | 2018-09-02 18:50 | PN ---
S Progress Note Note: patient anxious and restless c/o of withdrawal sx and body aches Vital Signs Temperature 97.7 F 09/02/18 18:39 Pulse Rate 70 09/02/18 18:39 Respiratory Rate 16 09/02/18 18:39 Blood Pressure 122/68 09/02/18 18:39 O2 Sat by Pulse Oximetry (%) clonidine 0.1 mg one dose flexeril prn psych consult re: anxiety repeat K+ continues 3.3, one dose K+ 20meq now, repeat K+ in AM patient interested in suboxone therapy, patient follow with counselor to link to suboxone program upon completing detox increase fluids continue to monitor
[2018-09-02] MEDS ORDERED: POTASSIUM CHLORIDE TABS 20 MEQ TABLET.ER (FP) PO ONE (19:00)
[2018-09-02] MEDS ORDERED: cloNIDine HCL 0.1 MG TABLET PO ONE (19:00)
--- NOTE | 2018-09-02 19:51 | PN ---
[facility] Progress Note Note: Vital Signs Temperature 97.7 F 09/02/18 18:39 Pulse Rate 70 09/02/18 18:39 Respiratory Rate 16 09/02/18 18:39 Blood Pressure 122/68 09/02/18 18:39 O2 Sat by Pulse Oximetry (%) Patient insist on leaving against medical advise, reports she has " something to do." Patient is cognitively able to make such decision. Patient highly advise to continue treatment. Patient advised on the risk of leaving AMA which include relapse or even . Patient to follow up with her senior accounting specialist and PCP with a week. Electronic rx for abx for UTI sent to pharmacy on file, patient was made aware rx was sent. Patient advise if worsening symptoms are present to go to local emergency department. Patient verbalizes understanding, and constantly expressed urgency to leave.
--- NOTE | 2018-09-02 19:52 | DS ---
[facility] Detox Discharge Summary Admission Date: 08/31/18 Discharge Date: 09/02/18 - History Present History: Alcohol Dependence, Cannabis Dependence, Cocaine Dependence, Opioid Dependence, Sedative Dependence Additional Comments: Patient insist on leaving against medical advise, reports she has " something to do." Patient is cognitively able to make such decision. Patient highly advise to continue treatment. Patient advised on the risk of leaving AMA which include relapse or even . Patient to follow up with her sueding machine tender and PCP with a week. Electronic rx for abx for UTI sent to pharmacy on file, patient was made aware rx was sent. Patient advise if worsening symptoms are present to go to local emergency department. Follow up with [facility], ([address] [place] [address], ) on . Patient verbalizes understanding, and constantly expressed urgency to leave. Pertinent Past History: Vital Signs Temperature 97.7 F 09/02/18 18:39 Pulse Rate 70 09/02/18 18:39 Respiratory Rate 16 09/02/18 18:39 Blood Pressure 122/68 09/02/18 18:39 O2 Sat by Pulse Oximetry (%) 09/01/18 19:00 Urine Culture - Pending Urine - Urine Clean Catch - Physical Exam Results Vital Signs: Vital Signs Temperature 97.7 F 09/02/18 18:39 Pulse Rate 70 09/02/18 18:39 Respiratory Rate 16 09/02/18 18:39 Blood Pressure 122/68 09/02/18 18:39 O2 Sat by Pulse Oximetry (%) - Medication Discharge Medications: Ambulatory Orders Lurasidone HCl [Latuda -] 20 mg PO DAILY 05/07/16 Lamotrigine [Lamictal] 100 mg PO BID 07/25/16 Albuterol Sulfate Inhaler - [Ventolin HFA Inhaler -] 2 inh PO Q4H PRN #1 inhaler 09/02/18 Nitrofurantoin Macrocrystal [Macrodantin -] 50 mg PO Q6HPO #20 capsule 09/02/18 - Diagnosis (1) UTI (urinary tract infection) Current Visit: Yes Status: Acute Qualifiers: Urinary tract infection type: site unspecified (2) Cocaine dependence Current Visit: Yes Status: Acute Qualifiers: Substance use status: uncomplicated Qualified Code(s): F14.20 - Cocaine dependence, uncomplicated (3) Opioid dependence with withdrawal Current Visit: Yes Status: Acute (4) Alcohol dependence with uncomplicated withdrawal Current Visit: Yes Status: Acute (5) Asthma Current Visit: Yes Status: Chronic Qualifiers: Asthma severity: unspecified severity Asthma complication type: uncomplicated (6) Cannabis dependence, uncomplicated Current Visit: Yes Status: Acute (7) Depression Current Visit: Yes Status: Suspected Qualifiers: Depression Type: unspecified Qualified Code(s): F32.9 - Major depressive disorder, single episode, unspecified (8) Nicotine dependence Current Visit: Yes Status: Chronic Qualifiers: Nicotine product type: cigarettes Substance use status: uncomplicated Qualified Code(s): F17.210 - Nicotine dependence, cigarettes, uncomplicated (9) Sedative, hypnotic or anxiolytic dependence with withdrawal, uncomplicated Current Visit: Yes Status: Acute - AMA Did Patient Leave Against Medical Advice: Yes
[2018-09-03] MEDS ORDERED: METHADONE HCL 5 MG TABLET (FOR DETOX USE ONLY) PO SCH (10:00)
[2018-09-03] MEDS ORDERED: diazePAM 5 MG TABLET PO SCH (10:00)
[2018-09-04] MEDS ORDERED: METHADONE HCL 10 MG TABLET (FOR DETOX USE ONLY) PO SCH (10:00)
[2018-09-04] MEDS ORDERED: diazePAM 5 MG TABLET PO SCH (10:00)
[2018-09-05] MEDS ORDERED: METHADONE HCL 5 MG TABLET (FOR DETOX USE ONLY) PO SCH (06:00)
[2018-09-05] MEDS ORDERED: diazePAM 5 MG TABLET PO SCH (10:00)
[2018-09-05] MEDS ORDERED: METHADONE HCL 10 MG TABLET (FOR DETOX USE ONLY) PO SCH (10:00)
[2018-09-06] MEDS ORDERED: METHADONE HCL 5 MG TABLET (FOR DETOX USE ONLY) PO SCH (06:00)
== END 2018-09-02 20:08 | disposition left against medical advice (07) | DRG 770 ==
LOC: YASAS 19:05 → Y6N 23:11
PROC: HZ2ZZZZ Detoxification Services for Substance Abuse Treatment (ICD-10-PCS; principal; 2018-08-31)
DX: F11.23 Opioid dependence with withdrawal (principal); F10.230 Alcohol dependence with withdrawal, uncomplicated; F13.230 Sedative, hypnotic or anxiolytic dependence with withdrawal, uncomplicated; F14.20 Cocaine dependence, uncomplicated; F12.20 Cannabis dependence, uncomplicated; F17.210 Nicotine dependence, cigarettes, uncomplicated; F32.9 Major depressive disorder, single episode, unspecified; F39 Unspecified mood [affective] disorder; F19.24 Other psychoactive substance dependence with psychoactive substance-induced mood disorder; N39.0 Urinary tract infection, site not specified; J45.909 Unspecified asthma, uncomplicated; E87.6 Hypokalemia; Z88.0 Allergy status to penicillin; Z88.1 Allergy status to other antibiotic agents; Z88.8 Allergy status to other drugs, medicaments and biological substances
CPT/HCPCS: 36415; 80053; 81003; 81015; 84702; 85027; 86593; 87086; 87186; 87389; 93005; 93010; J0735

== ENCOUNTER 2018-10-18 18:37 | Emergency (ER) | payer OTHER ==
[2018-10-18 18:43] VITALS: BP 141/89; PULSE 105; TEMP 98.1; BMI 21.9
[2018-10-18] MEDS ORDERED: ALBUTEROL SO4 0.083% IH SOL 2.5 MG/3 ML VIAL.NEB. NEB ONE (18:47)
--- NOTE | 2018-10-18 19:12 | PDOC ---
Attending Attestation - HPI HPI: 10/18/18 21:30 The patient is a 28 year old female, with a significant PMH of bipolar disorder, asthma and polysubstance abuse who presents to the emergency department with lightheadedness and SOB that began a few days ago. The patient states she went to eat something when she start to have a sudden onset of chest pain and lightheadedness. The patient reports SOB is exacerbated with cold air. She also notes a pruritic rash on her abdomen. Denies fever, chills, nausea, vomit, diarrhea and constipation. Denies dysuria, frequency, urgency and hematuria. Allergies: NKDA Past surgical history: None reported Social history: Admits to tobacco, alcohol and recreational drugs. PCP: None reported Documentation prepared by Eliza Pope, acting as medical charge entry specialist for Neyda Thornton MD. - Physicial Exam PE: 10/18/18 21:31 GENERAL: Awake, alert, and fully oriented, in no acute distress HEAD: No signs of trauma EYES: PERRLA, EOMI, sclera anicteric, conjunctiva clear ENT: Auricles normal inspection, hearing grossly normal, nares patent, oropharynx clear without exudates. Moist mucosa NECK: Normal ROM, supple, no lymphadenopathy, JVD, or masses LUNGS: Breath sounds equal, clear to auscultation bilaterally. No wheezes, and no crackles HEART: Regular rate and rhythm, normal S1 and S2, no murmurs, rubs or gallops ABDOMEN: Soft, nontender, normoactive bowel sounds. No guarding, no rebound. No masses EXTREMITIES: Normal range of motion, no edema. No clubbing or cyanosis. No cords, erythema, or tenderness NEUROLOGICAL: Cranial nerves II through XII grossly intact. Normal speech, normal gait SKIN: +Localized urticarial rash on the abdomen Documentation prepared by Eliza Pope, acting as medical charge entry specialist for Neyda Thornton MD. <Eliza Pope - Last Filed: 10/18/18 21:36> - Medical Decision Making 10/18/18 23:08 Pt presents to the Ed with shortness of breath and mild lightheadness that both resolved after nebs and urticarial rash. Patient feels improved and is asking to go home. Will discharge home with hydrocortisone cream for the rash. <Neyda Thornton - Last Filed: 10/18/18 23:11>
[2018-10-18] MEDS ORDERED: HYDROCORTISONE 0.5% TOPICAL CREAM 30 GM TUBE TP ONE (19:39)
[2018-10-18] MEDS ORDERED: DOCUSATE SODIUM 100 MG CAPSULE (FP) PO ONE (19:39)
[2018-10-18] MEDS ORDERED: SENNOSIDES 8.6MG TABLET (FP) PO ONE (19:40)
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
== END 2018-10-18 20:15 | disposition home or self-care (01) ==
LOC: JER 18:37 → JERFT 18:37 → JER 20:15
DX: R06.02 Shortness of breath (principal); R42 Dizziness and giddiness; S09.8XXA Other specified injuries of head, initial encounter; W22.8XXA Striking against or struck by other objects, initial encounter; Y93.89 Activity, other specified; Y92.89 Other specified places as the place of occurrence of the external cause; Y99.8 Other external cause status
CPT/HCPCS: 99282-25

== ENCOUNTER 2018-10-26 18:25 | Inpatient (IN) | payer OTHER ==
[2018-10-26 21:29] VITALS: BMI 21.2
--- NOTE | 2018-10-26 21:38 | HP ---
COWS - Scale Resting Pulse: 1= [place] 81-100 Sweatin=Flushed/Facial Moisture Restless Observation: 1= Difficult to Sit Still Pupil Size: 1= Pupils >than Normal Bone or Joint Aches: 2= Severe Diffuse Aches Runny Nose/ Eye Tearin= Runny Nose/Eyes GI Upset > 30mins: 2= Nausea/Diarrhea Tremor Observation: 4= Gross Tremor/Twitching Yawning Observation: 1= 1-2x During Session Anxiety or Irritability: 2=Irritable/Anxious Goose Flesh Skin: 0=Smooth Skin COWS Score: 18 CIWA Score Nausea/Vomitin Muscle Tremors: 3 Anxiety: 4-Mod. Anxious/Guarded Agitation: 4-Moderately Restless Paroxysmal Sweats: 2 Orientation: 0-Oriented Tacttile Disturbances: 2-Mild Itch/Numbness/Burn Auditory Disturbances: 2-Mild Harshness/Frighten Visual Disturbances: 1-Very Mild Sensitivity Headache: 1-Very Mild CIWA-Ar Total Score: 21 - Admission Criteria OASAS Guidelines: Admission for Medically Managed Detox: Requires at least one of the followin. CIWA greater than 12 2. Seizures within the past 24 hours 3. Delirium tremens within the past 24 hours 4. Hallucinations within the past 24 hours 5. Acute intervention needed for co occurring medical disorder 6. Acute intervention needed for co occurring psychiatric disorder 7. Severe withdrawal that cannot be handled at a lower level of care (continued vomiting, continued diarrhea, abnormal vital signs) requiring intravenous medication and/or fluids 8. Admission ROS S - [facility] Chief Complaint: DEPENDENT ON HEROIN, ETOH, COCAINE AND MARIJUANA Allergies/Adverse Reactions: Allergies Allergy/AdvReac Type Severity Reaction Status Date / Time amoxicillin Allergy Mild diarrhea Verified 10/26/18 21:43 Penicillins Allergy Mild diarrhea Verified 10/26/18 21:43 chlordiazepoxide AdvReac Verified 10/26/18 21:43 [From Librium] ziprasidone HCl [From Geodon] AdvReac Verified 10/26/18 21:43 ziprasidone mesylate AdvReac Verified 10/26/18 21:43 [From Geodon] History of Present Illness: THE PT. IS REQUESTING ADMISSION TO THE DETOX UNIT AND CAME FOR H AND PE Exam Limitations: No Limitations - Ebola screening Have you traveled outside of the country in the last 21 days: No Have you had contact with anyone from an Ebola affected area: No Have you been sick,other than usual withdrawal symptoms: No - Review of Systems Constitutional: See HPI, Loss of Appetite, Malaise, Weakness, Unexplained wgt Loss Respiratory: reports: See HPI Cardiac: reports: See HPI GI: reports: See HPI, Poor Appetite, Abdominal cramping : reports: See HPI Musculoskeletal: reports: See HPI, Muscle Pain, Muscle Weakness Integumentary: reports: See HPI, Erythema, Flushing, Sweating Neuro: reports: See HPI, Headache, Tremors, Weakness Endocrine: reports: See HPI Hematology: reports: See HPI Psychiatric: reports: Judgement Intact, Orientated x3, Anxious, Depressed Patient History - Patient Medical History Hx Anemia: No Hx Asthma: Yes (Albuterol) Hx Chronic Obstructive Pulmonary Disease (COPD): No Hx Cancer: No Hx Cardiac Disorders: No Hx Congestive Heart Failure: No Hx Hypertension: No Hx Hypercholesterolemia: No Hx Pacemaker: No HX Cerebrovascular Accident: No Hx Seizures: No Hx Dementia: No Hx Diabetes: No Hx Gastrointestinal Disorders: No Hx Liver Disease: No Hx Genitourinary Disorders: No Hx Sexually Transmitted Disorders: No Hx Renal Disease (ESRD): No Hx Thyroid Disease: No Hx Human Immunodeficiency Virus (HIV): No (Negative 2018) Hx Hepatitis C: No Hx Suicide Attempt: No (Denies suicide attempt and suicidal ideation at this time) Hx Bipolar Disorder: Yes (Latuda, lamictile) Hx Schizophrenia: No Other Medical History: ANXIETY DISORDER - Patient Surgical History Past Surgical History: Yes Hx Neurologic Surgery: No Hx Cataract Extraction: No Hx Cardiac Surgery: No Hx Lung Surgery: No Hx Breast Surgery: No Hx Breast Biopsy: No Hx Abdominal Surgery: No Hx Appendectomy: No Hx Cholecystectomy: No Hx Genitourinary Surgery: No Hx Section: No Hx Orthopedic Surgery: Yes (CLUB FOOT [LEFT ] AT ) Hx Hysterectomy: No Anesthesia Reaction: No - PPD History Date: 05/03/16 - Reproductive History Patient is a Female of Child Bearing Age (11 -55 yrs old): Yes Last Menstrual Period: 10/23/18 Patient : No - Smoking Cessation Smoking history: Current every day smoker Have you smoked in the past 12 months: Yes Aproximately how many cigarettes per day: 20 Cigars Per Day: 0 Hx Chewing Tobacco Use: No Initiated information on smoking cessation: Yes 'Breaking Loose' booklet given: 10/26/18 - Substance & Tx. History Hx Alcohol Use: Yes Hx Substance Use: Yes Substance Use Type: Alcohol, Cocaine, Heroin, Marijuana Hx Substance Use Treatment: Yes - Substances Abused Heroin Route: Inhalation Frequency: Daily Amount used: 5 b/d Age of first use: 23 Date of Last Use: 10/26/18 Alcohol Route: Oral Frequency: 3-6 times per week Amount used: BEER 2 CANS AND LIQUOR 1/2 P/EACH TIME Age of first use: 13 Date of Last Use: 10/26/18 Cocaine Route: Inhalation Frequency: Daily Amount used: 1-3 GRAMS/D Age of first use: 15 Date of Last Use: 10/26/18 Marijuana/Hashish Route: Smoking Frequency: Daily Amount used: 1 BLUNT Age of first use: 13 Date of Last Use: 10/26/18 Family Disease History - Family Disease History Family Disease History: Diabetes: Mother, CA: Grandparent Admission Physical Exam S - Vital Signs Vital Signs: Vital Signs - 24 hr 10/26/18 21:23 Temperature 96.9 F L Pulse Rate 84 Respiratory 20 Rate Blood Pressure 144/85 - Physical General Appearance: Yes: No Apparent Distress, Appropriately Dressed, Thin, Tremorous, Sweating, Anxious HEENTM: Yes: Hearing grossly Normal, Normocephalic, Normal Voice, CRISTIANE, Pharynx Normal, Nasal Congestion Respiratory: Yes: Chest Non-Tender, Lungs Clear, Normal Breath Sounds, No Respiratory Distress, No Accessory Muscle Use Neck: Yes: No masses,lesions,Nodules, Supple, Trachea in good position Breast: Yes: Axillae without masses Cardiology: Yes: Regular Rhythm, S1, S2, Tachycardia Abdominal: Yes: Normal Bowel Sounds, Non Tender, Flat, Soft Back: Yes: Normal Inspection Musculoskeletal: Yes: full range of Motion, Muscle Pain, Muscle weakness Extremities: Yes: Normal Capillary Refill, Normal Range of Motion, Non-Tender, Tremors Neurological: Yes: loss control engineer II-XII NML intact, Fully Oriented, Alert, Motor Strength 5/5, Normal Response, Depressed Affect Integumentary: Yes: Normal Color, Warm, Moist, Track Yi - Diagnostic (1) Cannabis dependence Current Visit: Yes Status: Chronic (2) Nicotine dependence Current Visit: Yes Status: Chronic Qualifiers: Nicotine product type: cigarettes Substance use status: uncomplicated Qualified Code(s): F17.210 - Nicotine dependence, cigarettes, uncomplicated (3) Alcohol dependence with uncomplicated withdrawal Current Visit: No Status: Chronic (4) Cannabis dependence, uncomplicated Current Visit: No Status: Chronic (5) Opioid dependence Current Visit: No Status: Chronic Qualifiers: Substance use status: uncomplicated Qualified Code(s): F11.20 - Opioid dependence, uncomplicated (6) Anxiety Current Visit: No Status: Chronic (7) Asthma Current Visit: No Status: Chronic Qualifiers: Asthma severity: unspecified severity Asthma complication type: uncomplicated (8) Bipolar 1 disorder, depressed Current Visit: No Status: Chronic (9) Cocaine dependence, uncomplicated Current Visit: No Status: Chronic (10) Nicotine dependence Current Visit: No Status: Chronic Qualifiers: Nicotine product type: cigarettes Substance use status: uncomplicated Qualified Code(s): F17.210 - Nicotine dependence, cigarettes, uncomplicated Cleared for Admission S - Detox or Rehab [facility] Level of Care: Medically Managed Detox Regimen/Protocol: Methadone/Valium BHS Breath Alcohol Content Breath Alcohol Content: 0.060 Urine Pregancy Test - Result Urine Test Results: Negative- NO Line Present Urine Drug Screen - Results Drug Screen Negative: No Urine Drug Screen Results: THC-Marijuana, BASHIR-Cocaine, OPI-Opiates, BZO- Benzodiazepines, OXY-Oxycodone, FEN-Fentanyl
[2018-10-26] MEDS ORDERED: diazePAM 5 MG TABLET PO ONE (21:53)
[2018-10-26] MEDS ORDERED: MAGNESIUM CITRATE 300 ML BOTTLE PO PRN (21:53)
[2018-10-26] MEDS ORDERED: LOPERAMIDE HCL 2 MG CAPSULE PO PRN (21:53)
[2018-10-26] MEDS ORDERED: MAG HYDROX/AL HYDROX/SIMETH 30 ML UNIT-DOSE CUP PO PRN (21:53)
[2018-10-26] MEDS ORDERED: NICOTINE POLACRILEX 4 MG GUM BC PRN (21:53)
[2018-10-26] MEDS ORDERED: guaiFENesin/D-METHORPHAN HB 10 ML UNIT-DOSE CUPS PO PRN (21:53)
[2018-10-26] MEDS ORDERED: IBUPROFEN 400 MG TABLET (FP) PO PRN (21:53)
[2018-10-26] MEDS ORDERED: P-EPHED 60MG/TRIPROLIDI 2.5MG TABLET PO PRN (21:53)
[2018-10-26] MEDS ORDERED: ACETAMINOPHEN 325 MG TABLET (FP) PO PRN (21:53)
[2018-10-26] MEDS ORDERED: MENTHOL/PHENOL 1 EACH UD MM PRN (21:53)
[2018-10-26] MEDS ORDERED: MAGNESIUM HYDROX 2400MG/30ML ORAL SUSPENSION 30 ML CUP PO PRN (21:53)
[2018-10-26] MEDS ORDERED: METHADONE HCL 10 MG TABLET (FOR DETOX USE ONLY) PO ONE ×2 (21:53→23:00)
[2018-10-26] MEDS ORDERED: ALBUTEROL SO4 8 GM HFA INHALER IH PRN (21:56)
[2018-10-26] MEDS: diazePAM 5 MG TABLET PO SCH (22:42)
[2018-10-26] MEDS: THIAMINE HCL 100 MG TABLET (FP) PO SCH (22:42)
[2018-10-27] MEDS: diazePAM 5 MG TABLET PO PRN ×3 (05:01→17:36)
[2018-10-27] MEDS: diazePAM 5 MG TABLET PO SCH ×3 (07:50→22:04)
[2018-10-27] MEDS ORDERED: METHADONE HCL 10 MG TABLET (FOR DETOX USE ONLY) PO SCH (10:00)
[2018-10-27] MEDS: PRENATAL VITAMINS W/ FOLIC ACID TABLET (FP) PO SCH (10:16)
[2018-10-27] MEDS: NICOTINE 21 MG/24 HOURS TOPICAL PATCH TD SCH (10:16)
[2018-10-27 11:16] LABS: HEMATOCRIT 38.6 % (32.4-45.2); HEMOGLOBIN 12.3 GM/dL (10.7-15.3); MCH 28.3 pg (25.7-33.7); MCHC 31.9 g/dl (32.0-36.0); MEAN CELL VOLUME 88.9 fl (80-96); MEAN PLT VOLUME 9.5 fl (7.5-11.1); PLATELET COUNT 194 K/MM3 (134-434); RBC 4.34 M/mm3 (3.60-5.2); RDW 14.5 % (11.6-15.6); WHITE BLOOD COUNT 4.4 K/mm3 (4.0-10.0)
[2018-10-27 11:18] LABS: ALBUMIN 3.4 g/dl (3.4-5.0); ALK PHOS 62 U/L (45-117); ANION GAP 5 MMOL/L (8-16); BILIRUBIN,TOTAL 0.5 mg/dL (0.2-1); BLOOD UREA NITROGEN 20 mg/dL (7-18); CALCIUM 8.5 mg/dL (8.5-10.1); CHLORIDE 104 mmol/L (98-107); CO2 30 mmol/L (21-32); CREATININE 0.8 mg/dL (0.55-1.3); GLUCOSE,RANDOM 98 mg/dL (74-106); POTASSIUM 3.8 mmol/L (3.5-5.1); SGOT/AST 26 U/L (15-37); SGPT/ALT 26 U/L (13-61); SODIUM 140 mmol/L (136-145); TOT PROT 6.8 g/dl (6.4-8.2)
--- NOTE | 2018-10-27 12:00 | PN ---
S CIWA - CIWA Score Nausea/Vomitin-No Nausea/No Vomiting Muscle Tremors: None Anxiety: 4-Mod. Anxious/Guarded Agitation: 1-Slight > Activity Paroxysmal Sweats: 3 Orientation: 0-Oriented Tacttile Disturbances: 0-None Auditory Disturbances: 0-None Visual Disturbances: 0-None Headache: 3-Moderate CIWA-Ar Total Score: 11 S COWS - Scale Resting Pulse: 0= [place] 80 or Below Sweatin= Chills/Flushing Restless Observation: 0= Sits Still Pupil Size: 0= Normal to Room Light Bone or Joint Aches: 1= Mild Discomfort Runny Nose/ Eye Tearin= None GI Upset > 30mins: 0= None Tremor Observation of Outstretched Hands: 0= None Yawning Observation: 1= 1-2x During Session Anxiety or Irritability: 2=Irritable/Anxious Goose Flesh Skin: 0=Smooth Skin COWS Score: 5 S Progress Note (SOAP) Subjective: PATIENT C/O INTERRUPTED SLEEP, ANXIETY, LACK OF APPETITE AND SWEATING. Objective: 10/27/18 11:58 Vital Signs Temperature 97.9 F 10/27/18 09:31 Pulse Rate 80 10/27/18 09:31 Respiratory Rate 18 10/27/18 09:31 Blood Pressure 123/59 L 10/27/18 09:31 O2 Sat by Pulse Oximetry (%) Laboratory Tests 10/27/18 10/27/18 10/27/18 07:30 07:30 07:30 WBC 4.4 RBC 4.34 Hgb 12.3 Hct 38.6 MCV 88.9 MCH 28.3 MCHC 31.9 L RDW 14.5 D Plt Count 194 MPV 9.5 Sodium 140 Potassium 3.8 Chloride 104 Carbon Dioxide 30 Anion Gap 5 L BUN 20 H Creatinine 0.8 Creat Clearance w eGFR > 60 Random Glucose 98 Calcium 8.5 Total Bilirubin 0.5 AST 26 ALT 26 Alkaline Phosphatase 62 Total Protein 6.8 Albumin 3.4 RPR Titer Nonreactive HIV 1&2 Antibody Screen HIV P24 Antigen 10/27/18 09:40 WBC RBC Hgb Hct MCV MCH MCHC RDW Plt Count MPV Sodium Potassium Chloride Carbon Dioxide Anion Gap BUN Creatinine Creat Clearance w eGFR Random Glucose Calcium Total Bilirubin AST ALT Alkaline Phosphatase Total Protein Albumin RPR Titer HIV 1&2 Antibody Screen Negative HIV P24 Antigen Negative PE: ALERT AND ORIENTED X 3 PATIENT THIN SKIN WARM AND MILD SWEATING TO TRUNCAL AREA EXT NO VISIBLE TREMORS SEEN OR FELT NO EDEMA, FULL ROM +IRRITABLE Assessment: 10/27/18 11:59 WITHDRAWAL SX Plan: CONTINUE DETOX ENCOURAGE ORAL FLUIDS CONTINUE TO MONITOR ADD ENSURE TO DIET
--- NOTE | 2018-10-27 14:36 | CONSULT ---
[facility] Psychiatric Consult - Data Date of interview: 10/27/17 Admission source: [facility] Identifying data: Mold Laminator approached patient for psychiatric consultation. Patient refused. Stated, " Not right now. i don't want to speak to you. " Nursing staff informed.
[2018-10-27] MEDS: MELATONIN 5 MG TABLETS PO PRN (22:04)
[2018-10-27] MEDS: THIAMINE HCL 100 MG TABLET (FP) PO SCH (22:04)
[2018-10-28] MEDS: diazePAM 5 MG TABLET PO SCH ×2 (10:13→22:16)
[2018-10-28] MEDS: PRENATAL VITAMINS W/ FOLIC ACID TABLET (FP) PO SCH (10:13)
[2018-10-28] MEDS: METHADONE HCL 5 MG TABLET (FOR DETOX USE ONLY) PO SCH (10:13)
[2018-10-28] MEDS: NICOTINE 21 MG/24 HOURS TOPICAL PATCH TD SCH (10:14)
[2018-10-28] MEDS ORDERED: TRIMETHOBENZAMIDE HCL 200MG/2ML INJ IM PRN (13:05)
[2018-10-28] MEDS ORDERED: SODIUM CHLORIDE NASAL SPRAY 44 ML BOTTLE NS PRN (14:18)
[2018-10-28] MEDS: diazePAM 5 MG TABLET PO PRN ×2 (14:29→18:24)
--- NOTE | 2018-10-28 14:59 | PN ---
S CIWA - CIWA Score Nausea/Vomitin Muscle Tremors: 2 Anxiety: 5 Agitation: 2 Paroxysmal Sweats: 3 Orientation: 2-Disoriented Date<2 days Tacttile Disturbances: 0-None Auditory Disturbances: 0-None Visual Disturbances: 0-None Headache: 2-Mild CIWA-Ar Total Score: 19 BHS COWS - Scale Resting Pulse: 1= [place] 81-100 Sweatin= Chills/Flushing Restless Observation: 0= Sits Still Pupil Size: 0= Normal to Room Light Bone or Joint Aches: 2= Severe Diffuse Aches Runny Nose/ Eye Tearin= Runny Nose/Eyes GI Upset > 30mins: 2= Nausea/Diarrhea Tremor Observation of Outstretched Hands: 2= Slight Tremor Visible Yawning Observation: 0= None Anxiety or Irritability: 4=Extreme Anxiety Goose Flesh Skin: 0=Smooth Skin COWS Score: 14 BHS Progress Note (SOAP) Subjective: Body Aches, Chills, H/A, Sweating, Anxious, Cough, Nasal Congestion. Patient also reports sensations of burning and pain when urinating over the last couple of days. Objective: PATIENT A & O X 2 (UNCERTAIN ABOUT CURRENT DAY / DATE). PATIENT OBSERVED AMBULATING ON UNIT. IN NO ACUTE DISTRESS. LUNG SOUNDS AUSCULTATED CLEAR AND EQUAL BILATERALLY. 10/28/18 14:55 Vital Signs Temperature 99.5 F 10/28/18 09:00 Pulse Rate 96 H 10/28/18 09:00 Respiratory Rate 18 10/28/18 09:00 Blood Pressure 131/76 10/28/18 09:00 O2 Sat by Pulse Oximetry (%) Laboratory Tests 10/27/18 10/27/18 10/27/18 07:30 07:30 07:30 WBC 4.4 RBC 4.34 Hgb 12.3 Hct 38.6 MCV 88.9 MCH 28.3 MCHC 31.9 L RDW 14.5 D Plt Count 194 MPV 9.5 Sodium 140 Potassium 3.8 Chloride 104 Carbon Dioxide 30 Anion Gap 5 L BUN 20 H Creatinine 0.8 Creat Clearance w eGFR > 60 Random Glucose 98 Calcium 8.5 Total Bilirubin 0.5 AST 26 ALT 26 Alkaline Phosphatase 62 Total Protein 6.8 Albumin 3.4 RPR Titer Nonreactive HIV 1&2 Antibody Screen HIV P24 Antigen 10/27/18 09:40 WBC RBC Hgb Hct MCV MCH MCHC RDW Plt Count MPV Sodium Potassium Chloride Carbon Dioxide Anion Gap BUN Creatinine Creat Clearance w eGFR Random Glucose Calcium Total Bilirubin AST ALT Alkaline Phosphatase Total Protein Albumin RPR Titer HIV 1&2 Antibody Screen Negative HIV P24 Antigen Negative LABS NOTED. 10/28/18 14:57 Assessment: 10/28/18 14:56 WITHDRAWAL SYMPTOMS. Plan: CONTINUE DETOX. TIGAN IM PRN FOR NAUSEA. CLONIDINE, 0.1 MG PO X 1 FOR SEVERE WITHDRAWAL SYMPTOMS. ACTIFED PRN AND SEA SALT NASAL SPRAY PRN FOR NASAL CONGESTION. INCREASE DAILY PO FLUID INTAKE. UA ORDERED FOR URINARY COMPLAINTS - RESULTS PENDING.
[2018-10-28] MEDS ORDERED: cloNIDine HCL 0.1 MG TABLET PO ONE (15:15)
[2018-10-28] MEDS: CYCLOBENZAPRINE HCL 10 MG TABLET (FP) PO PRN (22:16)
[2018-10-28] MEDS: THIAMINE HCL 100 MG TABLET (FP) PO SCH (22:16)
[2018-10-28] MEDS: MELATONIN 5 MG TABLETS PO PRN (22:17)
[2018-10-29] MEDS: PRENATAL VITAMINS W/ FOLIC ACID TABLET (FP) PO SCH (10:25)
[2018-10-29] MEDS: METHADONE HCL 5 MG TABLET (FOR DETOX USE ONLY) PO SCH (10:25)
[2018-10-29] MEDS: diazePAM 5 MG TABLET PO SCH ×2 (10:25→22:10)
[2018-10-29] MEDS: NICOTINE 21 MG/24 HOURS TOPICAL PATCH TD SCH (10:26)
[2018-10-29] MEDS: diazePAM 5 MG TABLET PO PRN ×2 (13:09→17:04)
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
--- NOTE | 2018-10-29 17:19 | PN ---
BHS Progress Note (SOAP) Subjective: Fatigue, Sweating, Interrupted Sleep. Patient reports that withdrawal symptoms in general are subsiding in severity. Objective: PATIENT A & O X 3, OBSERVED AMBULATING ON UNIT. IN NO ACUTE DISTRESS. 10/29/18 17:17 Vital Signs Temperature 97.9 F 10/29/18 16:57 Pulse Rate 82 10/29/18 16:57 Respiratory Rate 18 10/29/18 16:57 Blood Pressure 110/65 10/29/18 16:57 O2 Sat by Pulse Oximetry (%) Laboratory Tests 10/27/18 10/27/18 10/27/18 07:30 07:30 07:30 WBC 4.4 RBC 4.34 Hgb 12.3 Hct 38.6 MCV 88.9 MCH 28.3 MCHC 31.9 L RDW 14.5 D Plt Count 194 MPV 9.5 Sodium 140 Potassium 3.8 Chloride 104 Carbon Dioxide 30 Anion Gap 5 L BUN 20 H Creatinine 0.8 Creat Clearance w eGFR > 60 Random Glucose 98 Calcium 8.5 Total Bilirubin 0.5 AST 26 ALT 26 Alkaline Phosphatase 62 Total Protein 6.8 Albumin 3.4 RPR Titer Nonreactive HIV 1&2 Antibody Screen HIV P24 Antigen 10/27/18 09:40 WBC RBC Hgb Hct MCV MCH MCHC RDW Plt Count MPV Sodium Potassium Chloride Carbon Dioxide Anion Gap BUN Creatinine Creat Clearance w eGFR Random Glucose Calcium Total Bilirubin AST ALT Alkaline Phosphatase Total Protein Albumin RPR Titer HIV 1&2 Antibody Screen Negative HIV P24 Antigen Negative LABS NOTED. UA RESULTS PENDING. Assessment: 10/29/18 17:18 WITHDRAWAL SYMPTOMS. Plan: CONTINUE DETOX. INCREASE DAILY PO FLUID INTAKE.
[2018-10-29] MEDS ORDERED: LURASIDONE HCL 20 MG TABLET PO SCH (18:00)
[2018-10-29] MEDS: hydrOXYzine PAMOATE 25 MG CAPSULE (FP) PO PRN (19:37)
[2018-10-29] MEDS ORDERED: diphenhydrAMINE HCL 25 MG CAPSULE (FP) PO PRN (22:00)
[2018-10-29] MEDS ORDERED: lamoTRIgine 25 MG TABLET PO SCH (22:00)
[2018-10-29] MEDS: THIAMINE HCL 100 MG TABLET (FP) PO SCH (22:09)
[2018-10-29] MEDS: CYCLOBENZAPRINE HCL 10 MG TABLET (FP) PO PRN (22:10)
[2018-10-29] MEDS: MELATONIN 5 MG TABLETS PO PRN (22:11)
[2018-10-30] MEDS: hydrOXYzine PAMOATE 25 MG CAPSULE (FP) PO PRN ×2 (02:42→10:46)
[2018-10-30 09:56] VITALS: BP 116/58; PULSE 80; TEMP 97.9
[2018-10-30] MEDS ORDERED: diazePAM 5 MG TABLET PO SCH (10:00)
[2018-10-30] MEDS ORDERED: METHADONE HCL 10 MG TABLET (FOR DETOX USE ONLY) PO SCH (10:00)
[2018-10-30 10:23] LABS: URINE APPEARANCE CLOUDY; URINE BILIRUBIN NEGATIVE (<2.0 mg/dL); URINE COLOR YELLOW; URINE GLUCOSE (UA) NEGATIVE (NEGATIVE); URINE KETONE NEGATIVE (NEGATIVE); URINE LEUK ESTERASE NEGATIVE (NEGATIVE); URINE NITRITE NEGATIVE (NEGATIVE); URINE PROTEIN NEGATIVE (NEGATIVE); URINE UROBILINOGEN NEGATIVE mg/dL (0.2-1.0)
[2018-10-30] MEDS: CYCLOBENZAPRINE HCL 10 MG TABLET (FP) PO PRN (10:46)
[2018-10-30] MEDS: PRENATAL VITAMINS W/ FOLIC ACID TABLET (FP) PO SCH (10:46)
[2018-10-30] MEDS: NICOTINE 21 MG/24 HOURS TOPICAL PATCH TD SCH (10:47)
--- NOTE | 2018-10-30 16:50 | PN ---
BHS Progress Note (SOAP) Subjective: Anxious, Body aches, Interrupted Sleep, Sweating. Objective: PATIENT A & O X 3, OBSERVED AMBULATING ON UNIT. IN NO ACUTE DISTRESS. 10/30/18 16:49 Vital Signs Temperature 97.9 F 10/30/18 09:56 Pulse Rate 80 10/30/18 09:56 Respiratory Rate 16 10/30/18 09:56 Blood Pressure 116/58 L 10/30/18 09:56 O2 Sat by Pulse Oximetry (%) Laboratory Tests 10/27/18 10/27/18 10/27/18 07:30 07:30 07:30 WBC 4.4 RBC 4.34 Hgb 12.3 Hct 38.6 MCV 88.9 MCH 28.3 MCHC 31.9 L RDW 14.5 D Plt Count 194 MPV 9.5 Sodium 140 Potassium 3.8 Chloride 104 Carbon Dioxide 30 Anion Gap 5 L BUN 20 H Creatinine 0.8 Creat Clearance w eGFR > 60 Random Glucose 98 Calcium 8.5 Total Bilirubin 0.5 AST 26 ALT 26 Alkaline Phosphatase 62 Total Protein 6.8 Albumin 3.4 Urine Color Urine Appearance Urine pH Ur Specific [place] Urine Protein Urine Glucose (UA) Urine Ketones Urine Blood Urine Nitrite Urine Bilirubin Urine Urobilinogen Ur Leukocyte Esterase RPR Titer Nonreactive HIV 1&2 Antibody Screen HIV P24 Antigen 10/27/18 10/30/18 09:40 07:00 WBC RBC Hgb Hct MCV MCH MCHC RDW Plt Count MPV Sodium Potassium Chloride Carbon Dioxide Anion Gap BUN Creatinine Creat Clearance w eGFR Random Glucose Calcium Total Bilirubin AST ALT Alkaline Phosphatase Total Protein Albumin Urine Color Yellow Urine Appearance Cloudy Urine pH 7.0 Ur Specific [place] 1.011 Urine Protein Negative Urine Glucose (UA) Negative Urine Ketones Negative Urine Blood Negative Urine Nitrite Negative Urine Bilirubin Negative Urine Urobilinogen Negative Ur Leukocyte Esterase Negative RPR Titer HIV 1&2 Antibody Screen Negative HIV P24 Antigen Negative LABS NOTED. RESULTS OF UA NOTED. 10/30/18 16:49 Assessment: 10/30/18 16:49 WITHDRAWAL SYMPTOMS. Plan: CONTINUE DETOX. INCREASE DAILY PO FLUID INTAKE.
--- NOTE | 2018-10-30 16:51 | DS ---
[facility] Detox Discharge Summary Admission Date: 10/26/18 Discharge Date: 10/30/18 - History Present History: Alcohol Dependence, Cannabis Dependence, Cocaine Dependence, Opioid Dependence, Sedative Dependence Additional Comments: PATIENT REPORTS FAMILY EMERGENCY AND DOES NOT WISH TO REMAIN TO COMPLETE DETOX REGIMEN. RISKS OF LEAVING DETOX UNIT AGAINST MEDICAL ADVICE AND PRIOR TO COMPLETION OF DETOX REGIMEN EXPLAINED TO PATIENT. PATIENT ADVISED TO GO IMMEDIATELY TO NEAREST ER SHOULD ANY INTOLERABLE DETOX SYMPTOMS DEVELOP AT ANY TIME. PATIENT VERBALIZED UNDERSTANDING OF ALL INFORMATION / RECOMMENDATIONS PRESENTED TO HIM PRIOR TO DEPARTURE FROM DETOX UNIT. PATIENT LEFT DETOX UNIT IN STABLE MEDICAL CONDITION. Pertinent Past History: History of Anxiety, Bipolar II Disorder, Asthma, Nicotine Dependence. - Physical Exam Results Vital Signs: Vital Signs Temperature 97.9 F 10/30/18 09:56 Pulse Rate 80 10/30/18 09:56 Respiratory Rate 16 10/30/18 09:56 Blood Pressure 116/58 L 10/30/18 09:56 O2 Sat by Pulse Oximetry (%) Pertinent Admission Physical Exam Findings: WITHDRAWAL SYMPTOMS. Laboratory Tests 10/27/18 10/27/18 10/27/18 07:30 07:30 07:30 WBC 4.4 RBC 4.34 Hgb 12.3 Hct 38.6 MCV 88.9 MCH 28.3 MCHC 31.9 L RDW 14.5 D Plt Count 194 MPV 9.5 Sodium 140 Potassium 3.8 Chloride 104 Carbon Dioxide 30 Anion Gap 5 L BUN 20 H Creatinine 0.8 Creat Clearance w eGFR > 60 Random Glucose 98 Calcium 8.5 Total Bilirubin 0.5 AST 26 ALT 26 Alkaline Phosphatase 62 Total Protein 6.8 Albumin 3.4 Urine Color Urine Appearance Urine pH Ur Specific [place] Urine Protein Urine Glucose (UA) Urine Ketones Urine Blood Urine Nitrite Urine Bilirubin Urine Urobilinogen Ur Leukocyte Esterase RPR Titer Nonreactive HIV 1&2 Antibody Screen HIV P24 Antigen 10/27/18 10/30/18 09:40 07:00 WBC RBC Hgb Hct MCV MCH MCHC RDW Plt Count MPV Sodium Potassium Chloride Carbon Dioxide Anion Gap BUN Creatinine Creat Clearance w eGFR Random Glucose Calcium Total Bilirubin AST ALT Alkaline Phosphatase Total Protein Albumin Urine Color Yellow Urine Appearance Cloudy Urine pH 7.0 Ur Specific [place] 1.011 Urine Protein Negative Urine Glucose (UA) Negative Urine Ketones Negative Urine Blood Negative Urine Nitrite Negative Urine Bilirubin Negative Urine Urobilinogen Negative Ur Leukocyte Esterase Negative RPR Titer HIV 1&2 Antibody Screen Negative HIV P24 Antigen Negative LABS NOTED. - Treatment Hospital Course: Detoxed Safely - Medication Discharge Medications: Ambulatory Orders Lurasidone HCl [Latuda -] 20 mg PO DAILY 05/07/16 Lamotrigine [Lamictal] 100 mg PO BID 07/25/16 Albuterol Sulfate Inhaler - [Ventolin HFA Inhaler -] 2 inh PO Q4H PRN #1 inhaler 09/02/18 Nitrofurantoin Macrocrystal [Macrodantin -] 50 mg PO Q6HPO #20 capsule 09/02/18 - Diagnosis (1) Alcohol dependence with uncomplicated withdrawal Status: Chronic (2) Opioid dependence with withdrawal Status: Acute (3) Sedative, hypnotic or anxiolytic dependence with withdrawal, uncomplicated Status: Acute (4) Asthma Status: Chronic Qualifiers: Asthma severity: unspecified severity Asthma persistence: unspecified Asthma complication type: uncomplicated Qualified Code(s): J45.909 - Unspecified asthma, uncomplicated (5) Cannabis dependence, uncomplicated Status: Chronic (6) Cocaine dependence, uncomplicated Status: Chronic (7) Anxiety Status: Chronic (8) Nicotine dependence Status: Chronic Qualifiers: Nicotine product type: cigarettes Substance use status: uncomplicated Qualified Code(s): F17.210 - Nicotine dependence, cigarettes, uncomplicated (9) Substance induced mood disorder Status: Acute (10) Substance-induced sleep disorder Status: Acute (11) Bipolar II disorder Status: Chronic - AMA Did Patient Leave Against Medical Advice: Yes (PT HAD FAMILY EMERGENCY ADN DID NOT WISH TO STAY TO COMPLETE DETOX REGIMEN.)
[2018-10-31] MEDS ORDERED: METHADONE HCL 5 MG TABLET (FOR DETOX USE ONLY) PO SCH (06:00)
== END 2018-10-30 12:15 | disposition home or self-care (01) | DRG 773 ==
LOC: YASAS 18:25 → Y6N 21:43
PROC: HZ2ZZZZ Detoxification Services for Substance Abuse Treatment (ICD-10-PCS; principal; 2018-10-26)
DX: F11.23 Opioid dependence with withdrawal (principal); F10.230 Alcohol dependence with withdrawal, uncomplicated; F13.230 Sedative, hypnotic or anxiolytic dependence with withdrawal, uncomplicated; F14.20 Cocaine dependence, uncomplicated; F12.20 Cannabis dependence, uncomplicated; F17.210 Nicotine dependence, cigarettes, uncomplicated; F41.9 Anxiety disorder, unspecified; F19.24 Other psychoactive substance dependence with psychoactive substance-induced mood disorder; F19.282 Other psychoactive substance dependence with psychoactive substance-induced sleep disorder; F31.81 Bipolar II disorder; J45.909 Unspecified asthma, uncomplicated; R00.0 Tachycardia, unspecified; Z88.0 Allergy status to penicillin; Z88.1 Allergy status to other antibiotic agents
CPT/HCPCS: 36415; 80053; 81003; 85027; 86593; 87389

== ENCOUNTER 2019-02-09 09:47 | Inpatient (IN) | payer OTHER ==
[2019-02-09 10:17] VITALS: BMI 20.5
--- NOTE | 2019-02-09 11:01 | HP ---
COWS - Scale Resting Pulse: 1= [place] 81-100 Sweatin= Chills/Flushing Restless Observation: 1= Difficult to Sit Still Pupil Size: 1= Pupils >than Normal Bone or Joint Aches: 2= Severe Diffuse Aches Runny Nose/ Eye Tearin= Runny Nose/Eyes GI Upset > 30mins: 2= Nausea/Diarrhea Tremor Observation: 2= Slight Tremor Visible Yawning Observation: 2= >3x During Session Anxiety or Irritability: 2=Irritable/Anxious Goose Flesh Skin: 0=Smooth Skin COWS Score: 16 CIWA Score Nausea/Vomitin Muscle Tremors: 2 Anxiety: 2 Agitation: 2 Paroxysmal Sweats: 1-Minimal Palms Moist Orientation: 0-Oriented Tacttile Disturbances: 1-Very Mild Itch/Numbness Auditory Disturbances: 1-Very Mild Visual Disturbances: 0-None Headache: 2-Mild CIWA-Ar Total Score: 13 - Admission Criteria OASAS Guidelines: Admission for Medically Managed Detox: Requires at least one of the followin. CIWA greater than 12 2. Seizures within the past 24 hours 3. Delirium tremens within the past 24 hours 4. Hallucinations within the past 24 hours 5. Acute intervention needed for co occurring medical disorder 6. Acute intervention needed for co occurring psychiatric disorder 7. Severe withdrawal that cannot be handled at a lower level of care (continued vomiting, continued diarrhea, abnormal vital signs) requiring intravenous medication and/or fluids 8. Admission ROS S - [facility] Chief Complaint: i need help to stop using heroin,alcohol,and crack Allergies/Adverse Reactions: Allergies Allergy/AdvReac Type Severity Reaction Status Date / Time amoxicillin Allergy Mild diarrhea Verified 02/09/19 10:07 Penicillins Allergy Mild diarrhea Verified 02/09/19 10:07 chlordiazepoxide AdvReac Verified 02/09/19 10:07 [From Librium] ziprasidone HCl [From Geodon] AdvReac Verified 02/09/19 10:07 ziprasidone mesylate AdvReac Verified 02/09/19 10:07 [From Geodon] History of Present Illness: this 28 years old female with heroin,alcohol,crack dependence seeking detox, withdrawal symptom, multiple admissions in detox,last detox [facility] 10/26/18 to 10/30/18keeep relapsing nicotine dependence 7 cigarette/day,requesting nicotine patch weight loss longest period of sobriety 2 years plan for rehab after detox bipolar disorder non compliance also has asthma Exam Limitations: No Limitations - Ebola screening Have you traveled outside of the country in the last 21 days: No (N) Have you had contact with anyone from an Ebola affected area: No Do you have a fever: No - Review of Systems Constitutional: Chills, Loss of Appetite, Malaise, Night Sweats, Changes in sleep, Weakness, Unintentional Wgt. Loss EENT: reports: Tearing, Nose Congestion Respiratory: reports: No Symptoms reported Cardiac: reports: No Symptoms Reported GI: reports: Nausea, Poor Appetite, Vomiting, Abdominal cramping : reports: No Symptoms Reported Musculoskeletal: reports: Back Pain, Joint Pain, Muscle Pain, Joint Stiffness Integumentary: reports: Dryness Neuro: reports: Headache, Tremors Endocrine: reports: No Symptoms Reported Hematology: reports: No Symptoms Reported Psychiatric: reports: No Sypmtoms Reported, Judgement Intact, Mood/Affect Appropiate, Orientated x3, other (bipolar disorder) Other Systems: Reviewed and Negative Patient History - Patient Medical History Hx Anemia: No Hx Asthma: Yes (Albuterol) Hx Chronic Obstructive Pulmonary Disease (COPD): No Hx Cancer: No Hx Cardiac Disorders: No Hx Congestive Heart Failure: No Hx Hypertension: No Hx Hypercholesterolemia: No Hx Pacemaker: No HX Cerebrovascular Accident: No Hx Seizures: No Hx Dementia: No Hx Diabetes: No Hx Gastrointestinal Disorders: No Hx Liver Disease: No Hx Genitourinary Disorders: No Hx Sexually Transmitted Disorders: No Hx Renal Disease (ESRD): No Hx Thyroid Disease: No Hx Human Immunodeficiency Virus (HIV): No (Negative 2017) Hx Hepatitis C: No Hx Depression: Yes Hx Suicide Attempt: No (Denies suicide attempt and suicidal ideation at this time) Hx Bipolar Disorder: Yes (Latuda, lamictile) Hx Schizophrenia: No Other Medical History: no suicidal,no homicidal - Patient Surgical History Past Surgical History: Yes Hx Neurologic Surgery: No Hx Cataract Extraction: No Hx Cardiac Surgery: No Hx Lung Surgery: No Hx Breast Surgery: No Hx Breast Biopsy: No Hx Abdominal Surgery: No Hx Appendectomy: No Hx Cholecystectomy: No Hx Genitourinary Surgery: No Hx Section: No Hx Orthopedic Surgery: Yes (CLUB FOOT [LEFT ] AT ) Hx Hysterectomy: No Anesthesia Reaction: No - PPD History Previous Implant?: Yes Documented Results: Negative w/proof Implanted On Prior [facility] Admission?: Yes Date: 10/28/18 Results: 0 mm PPD to be Administered?: No - Reproductive History Patient is a Female of Child Bearing Age (11 -55 yrs old): Yes Last Menstrual Period: 11/27/18 Patient : No - Smoking Cessation Smoking history: Current every day smoker Have you smoked in the past 12 months: Yes Aproximately how many cigarettes per day: 7 Cigars Per Day: 0 Initiated information on smoking cessation: Yes 'Breaking Loose' booklet given: 02/09/19 - Substance & Tx. History Hx Alcohol Use: Yes Hx Substance Use: Yes Substance Use Type: Alcohol, Cocaine, Heroin Hx Substance Use Treatment: Yes ([facility] 10/26/18 to 10/30/18) - Substances abused Heroin Substance route: Inhalation Frequency: Daily Amount used: 10 bags Age of first use: 23 Date of last use: 02/07/19 Alcohol Substance route: Oral Frequency: Daily Amount used: 1 pint Age of first use: 13 Date of last use: 02/14/19 Crack Substance route: Smoking Frequency: Daily Amount used: 200 dollars Age of first use: 23 Date of last use: 02/07/19 Family Disease History - Family Disease History Family Disease History: Diabetes: Mother, [place]: Grandparent Admission Physical Exam [facility] - Vital Signs Vital Signs: Vital Signs - 24 hr 02/09/19 10:10 Temperature 96.9 F L Pulse Rate 90 Respiratory 16 Rate Blood Pressure 123/74 - Physical General Appearance: Yes: Moderate Distress, Tremorous, Irritable, Sweating, Anxious HEENTM: Yes: Normal ENT Inspection, CRISTIANE, Pharynx Normal Respiratory: Yes: Lungs Clear, Normal Breath Sounds, No Respiratory Distress Neck: Yes: Within Normal Limits, Supple, Trachea in good position Breast: Yes: Breast Exam Deferred Cardiology: Yes: Within Normal Limits, Regular Rhythm, Regular Rate, S1, S2 Abdominal: Yes: Within Normal Limits, Normal Bowel Sounds, Non Tender, Flat, Soft Genitourinary: Yes: Within Normal Limits Back: Yes: Muscle Spasm Musculoskeletal: Yes: full range of Motion, Back pain, Muscle Pain Extremities: Yes: Tremors Neurological: Yes: Within Normal Limits, green 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 NML intact, Alert, Motor Strength 5/5 Integumentary: Yes: Dry Lymphatic: Yes: Within Normal Limits - Diagnostic (1) Opioid dependence with withdrawal Current Visit: No Status: Acute (2) Bipolar II disorder Current Visit: No Status: Acute (3) Cocaine dependence Current Visit: No Status: Acute Qualifiers: Substance use status: uncomplicated Qualified Code(s): F14.20 - Cocaine dependence, uncomplicated (4) Alcohol dependence with uncomplicated withdrawal Current Visit: No Status: Chronic (5) Nicotine dependence Current Visit: No Status: Chronic Qualifiers: Nicotine product type: cigarettes Substance use status: uncomplicated Qualified Code(s): F17.210 - Nicotine dependence, cigarettes, uncomplicated (6) Nicotine dependence Current Visit: No Status: Chronic Qualifiers: Nicotine product type: cigarettes Substance use status: uncomplicated Qualified Code(s): F17.210 - Nicotine dependence, cigarettes, uncomplicated (7) Weight loss Current Visit: Yes Status: Acute Cleared for Admission S - Detox or Rehab [facility] Level of Care: Medically Managed Detox Regimen/Protocol: Methadone/Valium Breathalyzer - Breathalyzer Breathalyzer: 0 POC Urine test - Test device test lot number: [id number] Expiration date: 06/26/20 - Control test control: Yes - Result Urine Test Results: Negative - NO line present Urine Drug Screen - Test Device Lot number: [id number] Expiration date: 09/25/20 - Control Is test valid?: Yes - Results Drug screen NEGATIVE: No Urine drug screen results: THC-Marijuana, BASHIR-Cocaine, FEN-Fentanyl, MOP-Opiates , MTD-Methadone, BZO-Benzodiazepines Inpatient Rehab Admission - Rehab Decision to Admit Inpatient rehab admission?: No
[2019-02-09] MEDS ORDERED: MENTHOL/PHENOL 1 EACH UD MM PRN (11:09)
[2019-02-09] MEDS ORDERED: hydrOXYzine PAMOATE 25 MG CAPSULE (FP) PO PRN (11:09)
[2019-02-09] MEDS ORDERED: MAGNESIUM CITRATE 300 ML BOTTLE PO PRN (11:09)
[2019-02-09] MEDS ORDERED: ACETAMINOPHEN 325 MG TABLET (FP) PO PRN ×2 (11:09)
[2019-02-09] MEDS ORDERED: MAG HYDROX/AL HYDROX/SIMETH 30 ML UNIT-DOSE CUP PO PRN (11:09)
[2019-02-09] MEDS ORDERED: METHOCARBAMOL 500 MG TABLET PO PRN (11:09)
[2019-02-09] MEDS ORDERED: MAGNESIUM HYDROX 2400MG/30ML ORAL SUSPENSION 30 ML CUP PO PRN (11:09)
[2019-02-09] MEDS ORDERED: BISMUTH SUBSALICYLATE 524 MG/30 ML UD PO PRN (11:09)
[2019-02-09] MEDS ORDERED: IBUPROFEN 400 MG TABLET (FP) PO PRN (11:09)
[2019-02-09] MEDS ORDERED: MELATONIN 5 MG TABLETS PO PRN (11:09)
[2019-02-09] MEDS ORDERED: ALBUTEROL SO4 8 GM HFA INHALER IH PRN (11:14)
[2019-02-09] MEDS ORDERED: METHADONE HCL 10 MG TABLET (FOR DETOX USE ONLY) PO ONE ×3 (11:17→23:00)
[2019-02-09] MEDS: NICOTINE 21 MG/24 HOURS TOPICAL PATCH TD SCH (11:31)
[2019-02-09] MEDS: diazePAM 5 MG TABLET PO PRN (11:31)
[2019-02-09] MEDS: cloNIDine HCL 0.1 MG TABLET PO PRN ×2 (11:32→23:15)
[2019-02-09] MEDS: diazePAM 5 MG TABLET PO SCH ×2 (14:54→22:05)
--- NOTE | 2019-02-09 15:25 | PN ---
[facility] Progress Note Note: withdrawal symptom will give methadone 10 mgs po now close monitoring
[2019-02-09 15:41] LABS: ALBUMIN 3.3 g/dl (3.4-5.0); ALK PHOS 52 U/L (45-117); ANION GAP 4 MMOL/L (8-16); BILIRUBIN,TOTAL 0.2 mg/dL (0.2-1); BLOOD UREA NITROGEN 15 mg/dL (7-18); CALCIUM 9.2 mg/dL (8.5-10.1); CHLORIDE 108 mmol/L (98-107); CO2 29 mmol/L (21-32); CREATININE 0.7 mg/dL (0.55-1.3); GLUCOSE,RANDOM 114 mg/dL (74-106); POTASSIUM 3.7 mmol/L (3.5-5.1); SGOT/AST 20 U/L (15-37); SGPT/ALT 24 U/L (13-61); SODIUM 142 mmol/L (136-145)
[2019-02-09 15:51] LABS: HEMATOCRIT 37.5 % (32.4-45.2); HEMOGLOBIN 12.4 GM/dL (10.7-15.3); MCH 29.1 pg (25.7-33.7); MCHC 33.1 g/dl (32.0-36.0); MEAN PLT VOLUME 8.9 fl (7.5-11.1); PLATELET COUNT 259 K/MM3 (134-434); RBC 4.26 M/mm3 (3.60-5.2); RDW 14.7 % (11.6-15.6); WHITE BLOOD COUNT 5.4 K/mm3 (4.0-10.0)
--- NOTE | 2019-02-09 16:22 | PN ---
[facility] Progress Note Note: Psychiatry Attending's note : Patient is approached for psychiatric interview. Ms Miranda declines. " I cannot talk now. I am tired. Leave. "
[2019-02-09] MEDS: THIAMINE HCL 100 MG TABLET (FP) PO SCH (22:04)
[2019-02-09 23:06] LABS: EPI CELLS 25.7 /HPF (0-5/HPF); URINE APPEARANCE CLOUDY; URINE BACTERIA 1323.3 /hpf (NEGATIVE); URINE BILIRUBIN NEGATIVE (NEGATIVE); URINE CASTS 33 /lpf (0-8); URINE COLOR YELLOW; URINE GLUCOSE (UA) NEGATIVE (NEGATIVE); URINE KETONE TRACE (NEGATIVE); URINE LEUK ESTERASE TRACE (NEGATIVE); URINE NITRITE NEGATIVE (NEGATIVE); URINE PROTEIN NEGATIVE (NEGATIVE); URINE RBC 4 /hpf (0-4); URINE WBC 12 /hpf (0-5)
[2019-02-10] MEDS: diazePAM 5 MG TABLET PO SCH ×3 (05:27→22:50)
[2019-02-10] MEDS: diazePAM 5 MG TABLET PO PRN ×3 (08:31→17:45)
--- NOTE | 2019-02-10 09:24 | PN ---
S CIWA - CIWA Score Nausea/Vomitin-Mild Nausea/No Vomiting Muscle Tremors: 4-Moderate,w/Arms Extend Anxiety: 2 Agitation: 3 Paroxysmal Sweats: 1-Minimal Palms Moist Orientation: 2-Disoriented Date<2 days Tacttile Disturbances: 0-None Auditory Disturbances: 0-None Visual Disturbances: 0-None Headache: 0-None Present CIWA-Ar Total Score: 13 [facility] COWS - Scale Resting Pulse: 0= [place] 80 or Below Sweatin= Chills/Flushing Restless Observation: 1= Difficult to Sit Still Pupil Size: 0= Normal to Room Light Bone or Joint Aches: 1= Mild Discomfort Runny Nose/ Eye Tearin= Runny Nose/Eyes GI Upset > 30mins: 2= Nausea/Diarrhea Tremor Observation of Outstretched Hands: 2= Slight Tremor Visible Yawning Observation: 2= >3x During Session Anxiety or Irritability: 2=Irritable/Anxious Goose Flesh Skin: 0=Smooth Skin COWS Score: 13 [facility] Progress Note (SOAP) Subjective: history of bipolar taking lamactal and latuda last dose "weeks" ago 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 Objective: 02/10/19 09:22 Vital Signs Temperature 98.5 F 02/10/19 09:20 Pulse Rate 91 H 02/10/19 09:20 Respiratory Rate 20 02/10/19 09:20 Blood Pressure 119/69 02/10/19 09:20 O2 Sat by Pulse Oximetry (%) Laboratory Last Values WBC 5.4 K/mm3 (4.0-10.0) 02/09/19 11:15 RBC 4.26 M/mm3 (3.60-5.2) 02/09/19 11:15 Hgb 12.4 GM/dL (10.7-15.3) 02/09/19 11:15 Hct 37.5 % (32.4-45.2) 02/09/19 11:15 MCV 88.0 fl (80-96) 02/09/19 11:15 MCH 29.1 pg (25.7-33.7) 02/09/19 11:15 MCHC 33.1 g/dl (32.0-36.0) 02/09/19 11:15 RDW 14.7 % (11.6-15.6) 02/09/19 11:15 Plt Count 259 K/MM3 (134-434) D 02/09/19 11:15 MPV 8.9 fl (7.5-11.1) 02/09/19 11:15 Sodium 142 mmol/L (136-145) 02/09/19 11:15 Potassium 3.7 mmol/L (3.5-5.1) 02/09/19 11:15 Chloride 108 mmol/L (98-107) H 02/09/19 11:15 Carbon Dioxide 29 mmol/L (21-32) 02/09/19 11:15 Anion Gap 4 MMOL/L (8-16) L 02/09/19 11:15 BUN 15 mg/dL (7-18) 02/09/19 11:15 Creatinine 0.7 mg/dL (0.55-1.3) 02/09/19 11:15 Creat Clearance w eGFR 99.64 (>60) 02/09/19 11:15 Random Glucose 114 mg/dL (74-106) H 02/09/19 11:15 Calcium 9.2 mg/dL (8.5-10.1) 02/09/19 11:15 Total Bilirubin 0.2 mg/dL (0.2-1) 02/09/19 11:15 AST 20 U/L (15-37) 02/09/19 11:15 ALT 24 U/L (13-61) 02/09/19 11:15 Alkaline Phosphatase 52 U/L (45-117) 02/09/19 11:15 Total Protein 7.0 g/dl (6.4-8.2) 02/09/19 11:15 Albumin 3.3 g/dl (3.4-5.0) L 02/09/19 11:15 Urine Color Yellow 02/09/19 22:15 Urine Appearance Cloudy 02/09/19 22:15 Urine pH 7.0 (5.0-8.0) 02/09/19 22:15 Ur Specific [place] 1.025 (1.010-1.035) 02/09/19 22:15 Urine Protein Negative (NEGATIVE) 02/09/19 22:15 Urine Glucose (UA) Negative (NEGATIVE) 02/09/19 22:15 Urine Ketones Trace (NEGATIVE) H 02/09/19 22:15 Urine Blood Negative (NEGATIVE) 02/09/19 22:15 Urine Nitrite Negative (NEGATIVE) 02/09/19 22:15 Urine Bilirubin Negative (NEGATIVE) 02/09/19 22:15 Urine Urobilinogen 1.0 mg/dL (0.2-1.0) 02/09/19 22:15 Ur Leukocyte Esterase Trace (NEGATIVE) 02/09/19 22:15 Urine WBC (Auto) 12 /hpf (0-5) 02/09/19 22:15 Urine RBC (Auto) 4 /hpf (0-4) 02/09/19 22:15 Urine Casts (Auto) 33 /lpf (0-8) 02/09/19 22:15 U Pathogenic Cast Auto None /lpf (NEGATIVE) 02/09/19 22:15 U Epithel Cells (Auto) 25.7 /HPF (0-5/HPF) 02/09/19 22:15 Urine Bacteria (Auto) 1323.3 /hpf (NEGATIVE) 02/09/19 22:15 RPR Titer Nonreactive (NONREACTIVE) 02/09/19 11:15 HIV 1&2 Antibody Screen Negative 02/09/19 11:15 HIV P24 Antigen Negative 02/09/19 11:15 lab noted burning urination Assessment: 02/10/19 09:22 alcohyol and opiate withdrawal sx uti Plan: continue detox bactrium ds bid personal hygiene
[2019-02-10] MEDS ORDERED: METHADONE HCL 10 MG TABLET (FOR DETOX USE ONLY) PO ONE (10:00)
[2019-02-10] MEDS: PRENATAL VITAMINS W/ FOLIC ACID TABLET (FP) PO SCH (10:16)
[2019-02-10] MEDS: SULFAMETHOXAZOLE/TRIMETHOPRIM 800MG/160MG D.S. TABLET PO SCH ×2 (10:16→22:44)
[2019-02-10] MEDS: NICOTINE 21 MG/24 HOURS TOPICAL PATCH TD SCH (10:16)
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
[2019-02-10] MEDS: cloNIDine HCL 0.1 MG TABLET PO PRN (19:48)
[2019-02-10] MEDS: GABAPENTIN 300 MG CAPSULE (FP) PO SCH (22:44)
[2019-02-10] MEDS: THIAMINE HCL 100 MG TABLET (FP) PO SCH (22:44)
[2019-02-11] MEDS: diazePAM 5 MG TABLET PO PRN ×3 (02:40→17:20)
[2019-02-11] MEDS: GABAPENTIN 300 MG CAPSULE (FP) PO SCH ×2 (05:31→15:31)
[2019-02-11] MEDS ORDERED: diazePAM 5 MG TABLET PO ONE (06:00)
[2019-02-11] MEDS ORDERED: LURASIDONE HCL 20 MG TABLET PO SCH (10:00)
[2019-02-11] MEDS ORDERED: METHADONE HCL 10 MG TABLET (FOR DETOX USE ONLY) PO ONE (10:00)
[2019-02-11] MEDS: PRENATAL VITAMINS W/ FOLIC ACID TABLET (FP) PO SCH (10:40)
[2019-02-11] MEDS: SULFAMETHOXAZOLE/TRIMETHOPRIM 800MG/160MG D.S. TABLET PO SCH (10:40)
[2019-02-11] MEDS: NICOTINE 21 MG/24 HOURS TOPICAL PATCH TD SCH (10:42)
--- NOTE | 2019-02-11 12:31 | PN ---
S CIWA - CIWA Score Nausea/Vomitin-Mild Nausea/No Vomiting Muscle Tremors: 1-None Visible, but [place] Anxiety: 2 Agitation: 2 Paroxysmal Sweats: 1-Minimal Palms Moist Orientation: 0-Oriented Tacttile Disturbances: 0-None Auditory Disturbances: 1-Very Mild Visual Disturbances: 0-None Headache: 2-Mild CIWA-Ar Total Score: 10 [facility] COWS - Scale Resting Pulse: 1= [place] 81-100 Sweatin= Chills/Flushing Restless Observation: 1= Difficult to Sit Still Pupil Size: 0= Normal to Room Light Bone or Joint Aches: 1= Mild Discomfort Runny Nose/ Eye Tearin= Nasal Congestion GI Upset > 30mins: 1= Stomach Cramp Tremor Observation of Outstretched Hands: 1= Tremor [place], Not Seen Yawning Observation: 1= 1-2x During Session Anxiety or Irritability: 2=Irritable/Anxious Goose Flesh Skin: 0=Smooth Skin COWS Score: 10 S Progress Note (SOAP) Subjective: patient reporting long history of bipolar treated with latuda encourage the patient to be seen by psychiatrist patient agrees not to refuse mental health services Objective: 02/11/19 12:35 Vital Signs Temperature 97.9 F 02/11/19 09:48 Pulse Rate 85 02/11/19 09:48 Respiratory Rate 18 02/11/19 09:48 Blood Pressure 110/75 02/11/19 09:48 O2 Sat by Pulse Oximetry (%) Laboratory Last Values WBC 5.4 K/mm3 (4.0-10.0) 02/09/19 11:15 RBC 4.26 M/mm3 (3.60-5.2) 02/09/19 11:15 Hgb 12.4 GM/dL (10.7-15.3) 02/09/19 11:15 Hct 37.5 % (32.4-45.2) 02/09/19 11:15 MCV 88.0 fl (80-96) 02/09/19 11:15 MCH 29.1 pg (25.7-33.7) 02/09/19 11:15 MCHC 33.1 g/dl (32.0-36.0) 02/09/19 11:15 RDW 14.7 % (11.6-15.6) 02/09/19 11:15 Plt Count 259 K/MM3 (134-434) D 02/09/19 11:15 MPV 8.9 fl (7.5-11.1) 02/09/19 11:15 Sodium 142 mmol/L (136-145) 02/09/19 11:15 Potassium 3.7 mmol/L (3.5-5.1) 02/09/19 11:15 Chloride 108 mmol/L (98-107) H 02/09/19 11:15 Carbon Dioxide 29 mmol/L (21-32) 02/09/19 11:15 Anion Gap 4 MMOL/L (8-16) L 02/09/19 11:15 BUN 15 mg/dL (7-18) 02/09/19 11:15 Creatinine 0.7 mg/dL (0.55-1.3) 02/09/19 11:15 Creat Clearance w eGFR 99.64 (>60) 02/09/19 11:15 Random Glucose 114 mg/dL (74-106) H 02/09/19 11:15 Calcium 9.2 mg/dL (8.5-10.1) 02/09/19 11:15 Total Bilirubin 0.2 mg/dL (0.2-1) 02/09/19 11:15 AST 20 U/L (15-37) 02/09/19 11:15 ALT 24 U/L (13-61) 02/09/19 11:15 Alkaline Phosphatase 52 U/L (45-117) 02/09/19 11:15 Total Protein 7.0 g/dl (6.4-8.2) 02/09/19 11:15 Albumin 3.3 g/dl (3.4-5.0) L 02/09/19 11:15 Urine Color Yellow 02/09/19 22:15 Urine Appearance Cloudy 02/09/19 22:15 Urine pH 7.0 (5.0-8.0) 02/09/19 22:15 Ur Specific [place] 1.025 (1.010-1.035) 02/09/19 22:15 Urine Protein Negative (NEGATIVE) 02/09/19 22:15 Urine Glucose (UA) Negative (NEGATIVE) 02/09/19 22:15 Urine Ketones Trace (NEGATIVE) H 02/09/19 22:15 Urine Blood Negative (NEGATIVE) 02/09/19 22:15 Urine Nitrite Negative (NEGATIVE) 02/09/19 22:15 Urine Bilirubin Negative (NEGATIVE) 02/09/19 22:15 Urine Urobilinogen 1.0 mg/dL (0.2-1.0) 02/09/19 22:15 Ur Leukocyte Esterase Trace (NEGATIVE) 02/09/19 22:15 Urine WBC (Auto) 12 /hpf (0-5) 02/09/19 22:15 Urine RBC (Auto) 4 /hpf (0-4) 02/09/19 22:15 Urine Casts (Auto) 33 /lpf (0-8) 02/09/19 22:15 U Pathogenic Cast Auto None /lpf (NEGATIVE) 02/09/19 22:15 U Epithel Cells (Auto) 25.7 /HPF (0-5/HPF) 02/09/19 22:15 Urine Bacteria (Auto) 1323.3 /hpf (NEGATIVE) 02/09/19 22:15 RPR Titer Nonreactive (NONREACTIVE) 02/09/19 11:15 HIV 1&2 Antibody Screen Negative 02/09/19 11:15 HIV P24 Antigen Negative 02/09/19 11:15 lab noted Assessment: 02/11/19 12:36 withdrawal sx Plan: continue detox continue bactrium ds
[2019-02-11 14:03] VITALS: TEMP 98.2
[2019-02-11 18:21] VITALS: BP 110/64; PULSE 79
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
--- NOTE | 2019-02-11 18:35 | DS ---
[facility] Detox Discharge Summary Admission Date: 02/09/19 Discharge Date: 02/11/19 - History Present History: Alcohol Dependence, Opioid Dependence, Sedative Dependence - Physical Exam Results Vital Signs: Vital Signs Temperature 98.2 F 02/11/19 17:00 Pulse Rate 79 02/11/19 17:00 Respiratory Rate 18 02/11/19 17:00 Blood Pressure 110/64 02/11/19 17:00 O2 Sat by Pulse Oximetry (%) Pertinent Admission Physical Exam Findings: Patient left AMA and walked off the unit. - Medication Discharge Medications: Ambulatory Orders Lurasidone HCl [Latuda -] 20 mg PO DAILY 05/07/16 Lamotrigine [Lamictal] 100 mg PO BID 07/25/16 Albuterol Sulfate Inhaler - [Ventolin HFA Inhaler -] 2 inh PO Q4H PRN #1 inhaler 09/02/18 - Diagnosis (1) Alcohol dependence with uncomplicated withdrawal Current Visit: Yes Status: Acute (2) Opioid dependence with withdrawal Current Visit: Yes Status: Acute (3) Sedative, hypnotic or anxiolytic dependence with withdrawal, uncomplicated Current Visit: Yes Status: Acute - AMA Did Patient Leave Against Medical Advice: Yes
[2019-02-12] MEDS ORDERED: METHADONE HCL 10 MG TABLET (FOR DETOX USE ONLY) PO ONE (10:00)
[2019-02-13] MEDS ORDERED: METHADONE HCL 5 MG TABLET (FOR DETOX USE ONLY) PO ONE (06:00)
== END 2019-02-11 17:42 | disposition left against medical advice (07) | DRG 770 ==
LOC: YASAS 09:47 → Y3N 11:10
PROVIDERS: ADMIT Surgery; ATTEND Surgery
PROC: HZ2ZZZZ Detoxification Services for Substance Abuse Treatment (ICD-10-PCS; principal; 2019-02-09)
DX: F11.23 Opioid dependence with withdrawal (principal); F10.230 Alcohol dependence with withdrawal, uncomplicated; F13.230 Sedative, hypnotic or anxiolytic dependence with withdrawal, uncomplicated; F14.20 Cocaine dependence, uncomplicated; F12.20 Cannabis dependence, uncomplicated; F17.210 Nicotine dependence, cigarettes, uncomplicated; F19.24 Other psychoactive substance dependence with psychoactive substance-induced mood disorder; F31.81 Bipolar II disorder; N39.0 Urinary tract infection, site not specified; G47.00 Insomnia, unspecified; J45.909 Unspecified asthma, uncomplicated; R63.4 Abnormal weight loss; Z91.19 Patient's noncompliance with other medical treatment and regimen; Z88.0 Allergy status to penicillin; Z88.1 Allergy status to other antibiotic agents; Z88.8 Allergy status to other drugs, medicaments and biological substances
CPT/HCPCS: 36415; 80053; 81003; 85027; 86593; 87389; J0735

== ENCOUNTER 2019-02-22 16:53 | Inpatient (IN) | payer OTHER ==
[2019-02-22 19:17] VITALS: BMI 20.1
--- NOTE | 2019-02-22 20:27 | HP ---
COWS - Scale Resting Pulse: 0= [place] 80 or Below Sweatin=Flushed/Facial Moisture Restless Observation: 1= Difficult to Sit Still Pupil Size: 1= Pupils >than Normal Bone or Joint Aches: 2= Severe Diffuse Aches Runny Nose/ Eye Tearin= Runny Nose/Eyes GI Upset > 30mins: 2= Nausea/Diarrhea Tremor Observation: 2= Slight Tremor Visible Yawning Observation: 1= 1-2x During Session Anxiety or Irritability: 2=Irritable/Anxious Goose Flesh Skin: 0=Smooth Skin COWS Score: 15 CIWA Score Nausea/Vomitin Muscle Tremors: 4-Moderate,w/Arms Extend Anxiety: 2 Agitation: 2 Paroxysmal Sweats: 2 Orientation: 0-Oriented Tacttile Disturbances: 2-Mild Itch/Numbness/Burn Auditory Disturbances: 2-Mild Harshness/Frighten Visual Disturbances: 1-Very Mild Sensitivity Headache: 1-Very Mild CIWA-Ar Total Score: 18 - Admission Criteria OASAS Guidelines: Admission for Medically Managed Detox: Requires at least one of the followin. CIWA greater than 12 2. Seizures within the past 24 hours 3. Delirium tremens within the past 24 hours 4. Hallucinations within the past 24 hours 5. Acute intervention needed for co occurring medical disorder 6. Acute intervention needed for co occurring psychiatric disorder 7. Severe withdrawal that cannot be handled at a lower level of care (continued vomiting, continued diarrhea, abnormal vital signs) requiring intravenous medication and/or fluids 8. Admission ROS [facility] Chief Complaint: DEPENDENT ON HEROIN, ETOH AND CRACK Allergies/Adverse Reactions: Allergies Allergy/AdvReac Type Severity Reaction Status Date / Time amoxicillin Allergy Mild diarrhea Verified 02/22/19 19:09 Penicillins Allergy Mild diarrhea Verified 02/22/19 19:09 chlordiazepoxide AdvReac Verified 02/22/19 19:09 [From Librium] ziprasidone HCl [From Geodon] AdvReac Verified 02/22/19 19:09 ziprasidone mesylate AdvReac Verified 02/22/19 19:09 [From Geodon] History of Present Illness: THE PT. IS REQUESTING ADMISSION TO THE DETOX UNIT AND CAME FOR H AND PE - Ebola screening Have you traveled outside of the country in the last 21 days: No Have you had contact with anyone from an Ebola affected area: No Have you been sick,other than usual withdrawal symptoms: No Do you have a fever: No - Review of Systems Constitutional: See HPI, Loss of Appetite, Malaise, Weight Stable, Unintentional Wgt. Loss EENT: reports: See HPI Respiratory: reports: See HPI Cardiac: reports: See HPI GI: reports: See HPI, Nausea, Vomiting, Abdominal cramping : reports: See HPI Musculoskeletal: reports: See HPI, Muscle Pain, Muscle Weakness Integumentary: reports: See HPI, Flushing, Sweating Neuro: reports: See HPI, Headache, Tremors, Weakness Endocrine: reports: See HPI Hematology: reports: See HPI Psychiatric: reports: Judgement Intact, Orientated x3, Anxious, Depressed Patient History - Patient Medical History Hx Anemia: No Hx Asthma: Yes (Albuterol) Hx Chronic Obstructive Pulmonary Disease (COPD): No Hx Cancer: No Hx Cardiac Disorders: No Hx Congestive Heart Failure: No Hx Hypertension: No Hx Hypercholesterolemia: No Hx Pacemaker: No HX Cerebrovascular Accident: No Hx Seizures: No Hx Dementia: No Hx Diabetes: No Hx Gastrointestinal Disorders: No Hx Liver Disease: No Hx Genitourinary Disorders: No Hx Sexually Transmitted Disorders: No Hx Renal Disease (ESRD): No Hx Thyroid Disease: No Hx Human Immunodeficiency Virus (HIV): No (Negative 2018) Hx Hepatitis C: No Hx Suicide Attempt: No (Denies suicide attempt and suicidal ideation at this time) Hx Bipolar Disorder: Yes (Latuda, lamictile) Hx Schizophrenia: No - Patient Surgical History Past Surgical History: Yes Hx Neurologic Surgery: No Hx Cataract Extraction: No Hx Cardiac Surgery: No Hx Lung Surgery: No Hx Breast Surgery: No Hx Breast Biopsy: No Hx Abdominal Surgery: No Hx Appendectomy: No Hx Cholecystectomy: No Hx Genitourinary Surgery: No Hx Section: No Hx Orthopedic Surgery: Yes (CLUB FOOT [LEFT ] AT ) Hx Hysterectomy: No Anesthesia Reaction: No - PPD History Date: 10/28/18 Results: 0 mm - Reproductive History Last Menstrual Period: 11/27/18 Patient : No - Smoking Cessation Smoking history: Current every day smoker Have you smoked in the past 12 months: Yes Aproximately how many cigarettes per day: 7 Cigars Per Day: 0 Hx Chewing Tobacco Use: No Initiated information on smoking cessation: Yes 'Breaking Loose' booklet given: 02/22/19 - Substance & Tx. History Hx Alcohol Use: Yes Substance Use Type: Alcohol, Cocaine, Opiates - Substances abused Heroin Substance route: Inhalation Frequency: Daily Amount used: 10-15 bags Age of first use: 23 Date of last use: 02/22/19 Alcohol Substance route: Oral Frequency: Daily Amount used: 1 pint Age of first use: 13 Date of last use: 02/22/19 Crack Substance route: Smoking Frequency: Daily Amount used: 200 dollars Age of first use: 23 Date of last use: 02/22/19 Family Disease History - Family Disease History Family Disease History: Diabetes: Mother, [place]: Grandparent Admission Physical Exam [facility] - Vital Signs Vital Signs: Vital Signs - 24 hr 02/22/19 19:08 Temperature 98.6 F Pulse Rate 68 Respiratory 18 Rate Blood Pressure 108/75 - Physical General Appearance: Yes: No Apparent Distress, Appropriately Dressed, Thin, Tremorous, Sweating, Anxious HEENTM: Yes: Hearing grossly Normal, Normocephalic, Normal Voice, CRISTIANE, Pharynx Normal Respiratory: Yes: Chest Non-Tender, Lungs Clear, Normal Breath Sounds, No Respiratory Distress, No Accessory Muscle Use Neck: Yes: No masses,lesions,Nodules, Supple, Trachea in good position Breast: Yes: Breast Exam Deferred, Axillae without masses Cardiology: Yes: Regular Rhythm, Regular Rate, S1, S2 Abdominal: Yes: Normal Bowel Sounds, Non Tender, Flat, Soft Back: Yes: Normal Inspection Musculoskeletal: Yes: full range of Motion, Muscle Pain, Muscle weakness Extremities: Yes: Normal Capillary Refill, Normal Range of Motion, Non-Tender, Tremors Neurological: Yes: fruit 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-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 NML intact, Fully Oriented, Alert, Motor Strength 5/5, Normal Response Integumentary: Yes: Normal Color, Warm, Erythema, Moist, Track Yi Lymphatic: Yes: Within Normal Limits - Diagnostic (1) Alcohol dependence with uncomplicated withdrawal Current Visit: No Status: Chronic (2) Bipolar II disorder Current Visit: No Status: Chronic (3) Opioid dependence with withdrawal Current Visit: No Status: Chronic (4) Asthma Current Visit: No Status: Chronic Qualifiers: Asthma severity: unspecified severity Asthma persistence: unspecified Asthma complication type: uncomplicated Qualified Code(s): J45.909 - Unspecified asthma, uncomplicated (5) Nicotine dependence Current Visit: No Status: Chronic Qualifiers: Nicotine product type: cigarettes Substance use status: uncomplicated Qualified Code(s): F17.210 - Nicotine dependence, cigarettes, uncomplicated Cleared for Admission S - Detox or Rehab [facility] Level of Care: Medically Supervised Detox Regimen/Protocol: Methadone/Librium Breathalyzer - Breathalyzer Breathalyzer: 0 POC Urine test - Test device test lot number: [id number] Expiration date: 06/26/20 - Control test control: Yes Urine Drug Screen - Test Device Lot number: [id number] Expiration date: 09/25/20 - Control Is test valid?: Yes - Results Drug screen NEGATIVE: No Urine drug screen results: THC-Marijuana, BASHIR-Cocaine, FEN-Fentanyl, MOP-Opiates , MTD-Methadone, BZO-Benzodiazepines Inpatient Rehab Admission - Rehab Decision to Admit Inpatient rehab admission?: No
[2019-02-22] MEDS ORDERED: NICOTINE POLACRILEX 2 MG GUM BUC PRN (20:32)
[2019-02-22] MEDS ORDERED: MAGNESIUM CITRATE 300 ML BOTTLE PO PRN (20:32)
[2019-02-22] MEDS ORDERED: METHADONE HCL 10 MG TABLET (FOR DETOX USE ONLY) PO ONE ×2 (20:32→23:00)
[2019-02-22] MEDS ORDERED: IBUPROFEN 400 MG TABLET (FP) PO PRN (20:32)
[2019-02-22] MEDS ORDERED: BISMUTH SUBSALICYLATE 524 MG/30 ML UD PO PRN (20:32)
[2019-02-22] MEDS ORDERED: hydrOXYzine PAMOATE 25 MG CAPSULE (FP) PO PRN (20:32)
[2019-02-22] MEDS ORDERED: MAGNESIUM HYDROX 2400MG/30ML ORAL SUSPENSION 30 ML CUP PO PRN (20:32)
[2019-02-22] MEDS ORDERED: MELATONIN 5 MG TABLETS PO PRN (20:32)
[2019-02-22] MEDS ORDERED: chlordiazePOXIDE HCL 25 MG CAPSULE PO ONE (20:32)
[2019-02-22] MEDS ORDERED: METHOCARBAMOL 500 MG TABLET PO PRN (20:32)
[2019-02-22] MEDS ORDERED: ACETAMINOPHEN 325 MG TABLET (FP) PO PRN ×2 (20:32)
[2019-02-22] MEDS ORDERED: MAG HYDROX/AL HYDROX/SIMETH 30 ML UNIT-DOSE CUP PO PRN (20:32)
[2019-02-22] MEDS ORDERED: MENTHOL/PHENOL 1 EACH UD MM PRN (20:32)
[2019-02-22] MEDS ORDERED: ALBUTEROL SO4 8 GM HFA INHALER IH PRN (20:36)
[2019-02-22] MEDS: THIAMINE HCL 100 MG TABLET (FP) PO SCH (22:59)
[2019-02-22] MEDS: chlordiazePOXIDE HCL 25 MG CAPSULE PO SCH (23:00)
[2019-02-23] MEDS: LURASIDONE HCL 20 MG TABLET PO SCH ×2 (00:27→09:07)
[2019-02-23] MEDS: lamoTRIgine 100 MG TABLET (FP) PO SCH ×3 (00:28→22:00)
[2019-02-23] MEDS: chlordiazePOXIDE HCL 25 MG CAPSULE PO SCH ×2 (05:17→14:58)
[2019-02-23] MEDS: chlordiazePOXIDE HCL 10 MG CAPSULE PO PRN ×2 (09:09→19:43)
[2019-02-23 09:51] LABS: HEMOGLOBIN 11.7 GM/dL (10.7-15.3); MCH 28.2 pg (25.7-33.7); MCHC 32.4 g/dl (32.0-36.0); MEAN PLT VOLUME 8.7 fl (7.5-11.1); PLATELET COUNT 260 K/MM3 (134-434); RBC 4.14 M/mm3 (3.60-5.2); RDW 14.8 % (11.6-15.6); WHITE BLOOD COUNT 6.3 K/mm3 (4.0-10.0)
[2019-02-23] MEDS ORDERED: METHADONE HCL 5 MG TABLET (FOR DETOX USE ONLY) PO ONE (10:00)
[2019-02-23] MEDS ORDERED: PRENATAL VITAMINS W/ FOLIC ACID TABLET (FP) PO SCH (10:00)
[2019-02-23] MEDS ORDERED: NICOTINE 14 MG/24 HOURS TOPICAL PATCH TD SCH (10:00)
[2019-02-23 10:02] LABS: ALBUMIN 3.1 g/dl (3.4-5.0); ALK PHOS 53 U/L (45-117); ANION GAP 6 MMOL/L (8-16); BILIRUBIN,TOTAL 0.2 mg/dL (0.2-1); BLOOD UREA NITROGEN 20 mg/dL (7-18); CALCIUM 8.7 mg/dL (8.5-10.1); CHLORIDE 104 mmol/L (98-107); CO2 30 mmol/L (21-32); CREATININE 0.6 mg/dL (0.55-1.3); GLUCOSE,RANDOM 87 mg/dL (74-106); POTASSIUM 3.9 mmol/L (3.5-5.1); SGOT/AST 13 U/L (15-37); SGPT/ALT 30 U/L (13-61); SODIUM 139 mmol/L (136-145); TOT PROT 6.3 g/dl (6.4-8.2)
--- NOTE | 2019-02-23 10:25 | CONSULT ---
[facility] Psychiatric Consult - Data Date of interview: 02/23/19 Admission source: [facility] Identifying data: Patient refuses to be interviewed. Verbally abusive to this play writer. Nursing staff is made aware.
[2019-02-23] MEDS: cloNIDine HCL 0.1 MG TABLET PO PRN ×2 (11:14→22:02)
--- NOTE | 2019-02-23 16:38 | PN ---
S CIWA - CIWA Score Nausea/Vomitin-Mild Nausea/No Vomiting Muscle Tremors: 3 Anxiety: 3 Agitation: 3 Paroxysmal Sweats: 1-Minimal Palms Moist Orientation: 1-Uncertain about Date Tacttile Disturbances: 0-None Auditory Disturbances: 0-None Visual Disturbances: 0-None Headache: 1-Very Mild CIWA-Ar Total Score: 13 BHS COWS - Scale Resting Pulse: 0= [place] 80 or Below Sweatin= Chills/Flushing Restless Observation: 1= Difficult to Sit Still Pupil Size: 0= Normal to Room Light Bone or Joint Aches: 1= Mild Discomfort Runny Nose/ Eye Tearin= Nasal Congestion GI Upset > 30mins: 1= Stomach Cramp Tremor Observation of Outstretched Hands: 2= Slight Tremor Visible Yawning Observation: 2= >3x During Session Anxiety or Irritability: 2=Irritable/Anxious Goose Flesh Skin: 0=Smooth Skin COWS Score: 11 S Progress Note (SOAP) Subjective: patient wants more methadone that last week she received 50 mg methadone at the first day as per patient statement patient wants librium with valium and ativan together health teaching on risks of librium mixed with valium and ativan discuss methadone assisted maintenance treatment program Objective: 02/23/19 16:39 Vital Signs Temperature 97.1 F L 02/23/19 13:26 Pulse Rate 73 02/23/19 13:26 Respiratory Rate 18 02/23/19 13:26 Blood Pressure 112/65 02/23/19 13:26 O2 Sat by Pulse Oximetry (%) Laboratory Last Values WBC 6.3 K/mm3 (4.0-10.0) 02/23/19 07:00 RBC 4.14 M/mm3 (3.60-5.2) 02/23/19 07:00 Hgb 11.7 GM/dL (10.7-15.3) 02/23/19 07:00 Hct 36.0 % (32.4-45.2) 02/23/19 07:00 MCV 87.0 fl (80-96) 02/23/19 07:00 MCH 28.2 pg (25.7-33.7) 02/23/19 07:00 MCHC 32.4 g/dl (32.0-36.0) 02/23/19 07:00 RDW 14.8 % (11.6-15.6) 02/23/19 07:00 Plt Count 260 K/MM3 (134-434) 02/23/19 07:00 MPV 8.7 fl (7.5-11.1) 02/23/19 07:00 Sodium 139 mmol/L (136-145) 02/23/19 07:00 Potassium 3.9 mmol/L (3.5-5.1) 02/23/19 07:00 Chloride 104 mmol/L (98-107) 02/23/19 07:00 Carbon Dioxide 30 mmol/L (21-32) 02/23/19 07:00 Anion Gap 6 MMOL/L (8-16) L 02/23/19 07:00 BUN 20 mg/dL (7-18) H 02/23/19 07:00 Creatinine 0.6 mg/dL (0.55-1.3) 02/23/19 07:00 Creat Clearance w eGFR 119.04 (>60) 02/23/19 07:00 Random Glucose 87 mg/dL (74-106) 02/23/19 07:00 Calcium 8.7 mg/dL (8.5-10.1) 02/23/19 07:00 Total Bilirubin 0.2 mg/dL (0.2-1) 02/23/19 07:00 AST 13 U/L (15-37) L 02/23/19 07:00 ALT 30 U/L (13-61) 02/23/19 07:00 Alkaline Phosphatase 53 U/L (45-117) 02/23/19 07:00 Total Protein 6.3 g/dl (6.4-8.2) L 02/23/19 07:00 Albumin 3.1 g/dl (3.4-5.0) L 02/23/19 07:00 RPR Titer Nonreactive (NONREACTIVE) 02/23/19 07:00 lab noted Assessment: 02/23/19 16:39 alcohol and opiate withdrawal sx Plan: continue detox
[2019-02-23] MEDS: chlordiazePOXIDE 5 MG CAPSULE PO SCH (22:00)
[2019-02-23] MEDS: THIAMINE HCL 100 MG TABLET (FP) PO SCH (22:00)
[2019-02-24] MEDS: chlordiazePOXIDE 5 MG CAPSULE PO SCH (05:35)
[2019-02-24] MEDS: cloNIDine HCL 0.1 MG TABLET PO PRN (08:19)
[2019-02-24] MEDS: chlordiazePOXIDE HCL 10 MG CAPSULE PO PRN (09:06)
[2019-02-24 09:29] VITALS: BP 114/75; PULSE 76; TEMP 99.1
[2019-02-24] MEDS ORDERED: METHADONE HCL 10 MG TABLET (FOR DETOX USE ONLY) PO ONE (10:00)
[2019-02-24] MEDS: lamoTRIgine 100 MG TABLET (FP) PO SCH (10:06)
[2019-02-24] MEDS: LURASIDONE HCL 20 MG TABLET PO SCH (10:06)
--- NOTE | 2019-02-24 12:02 | DS ---
[facility] Detox Discharge Summary Admission Date: 02/22/19 Discharge Date: 02/24/19 - History Present History: Alcohol Dependence, Opioid Dependence Additional Comments: 28 years old female admitted on 02/22/19 for alcohol and opiate withdrawal stabilization patient preferred return to suboxone program where she received suboxone for his opiate medication assisted maintenance treatment program at [facility] patient reported that she has opiate and alcohol withdrawal sx but wants to stay with her grandparents in [place] for a few days then return to [facility] suboxon program last suboxone was 11/2018 understand the protocol of suboxine initiation patient is alert no acute distress denies suicidal ideation but feel sad that methadone does nothing for her Pertinent Past History: bring in medication list and lab report to follow up appointment - Physical Exam Results Vital Signs: Vital Signs Temperature 99.1 F 02/24/19 09:28 Pulse Rate 76 02/24/19 09:28 Respiratory Rate 18 02/24/19 09:28 Blood Pressure 114/75 02/24/19 09:28 O2 Sat by Pulse Oximetry (%) Pertinent Admission Physical Exam Findings: alcohol and opiate withdrawal sx Laboratory Last Values WBC 6.3 K/mm3 (4.0-10.0) 02/23/19 07:00 RBC 4.14 M/mm3 (3.60-5.2) 02/23/19 07:00 Hgb 11.7 GM/dL (10.7-15.3) 02/23/19 07:00 Hct 36.0 % (32.4-45.2) 02/23/19 07:00 MCV 87.0 fl (80-96) 02/23/19 07:00 MCH 28.2 pg (25.7-33.7) 02/23/19 07:00 MCHC 32.4 g/dl (32.0-36.0) 02/23/19 07:00 RDW 14.8 % (11.6-15.6) 02/23/19 07:00 Plt Count 260 K/MM3 (134-434) 02/23/19 07:00 MPV 8.7 fl (7.5-11.1) 02/23/19 07:00 Sodium 139 mmol/L (136-145) 02/23/19 07:00 Potassium 3.9 mmol/L (3.5-5.1) 02/23/19 07:00 Chloride 104 mmol/L (98-107) 02/23/19 07:00 Carbon Dioxide 30 mmol/L (21-32) 02/23/19 07:00 Anion Gap 6 MMOL/L (8-16) L 02/23/19 07:00 BUN 20 mg/dL (7-18) H 02/23/19 07:00 Creatinine 0.6 mg/dL (0.55-1.3) 02/23/19 07:00 Creat Clearance w eGFR 119.04 (>60) 02/23/19 07:00 Random Glucose 87 mg/dL (74-106) 02/23/19 07:00 Calcium 8.7 mg/dL (8.5-10.1) 02/23/19 07:00 Total Bilirubin 0.2 mg/dL (0.2-1) 02/23/19 07:00 AST 13 U/L (15-37) L 02/23/19 07:00 ALT 30 U/L (13-61) 02/23/19 07:00 Alkaline Phosphatase 53 U/L (45-117) 02/23/19 07:00 Total Protein 6.3 g/dl (6.4-8.2) L 02/23/19 07:00 Albumin 3.1 g/dl (3.4-5.0) L 02/23/19 07:00 RPR Titer Nonreactive (NONREACTIVE) 02/23/19 07:00 lab noted - Treatment Hospital Course: Detox Protocol Followed, Detoxed Safely, Responded well, Discharged Condition Good, Rehab Referral Accepted Patient has Accepted a Rehab Referral to: [facility] program - Medication Discharge Medications: Ambulatory Orders Lurasidone HCl [Latuda -] 20 mg PO DAILY 05/07/16 Lamotrigine [Lamictal] 100 mg PO BID 07/25/16 Albuterol Sulfate Inhaler - [Ventolin HFA Inhaler -] 2 inh PO Q4H PRN #1 inhaler 02/24/19 Naloxone HCl [Narcan] 4 mg NS ASDIR PRN 02/24/19 - Diagnosis (1) Weight loss Status: Acute (2) Alcohol dependence with uncomplicated withdrawal Status: Acute (3) Asthma Status: Chronic Qualifiers: Asthma severity: mild Asthma persistence: intermittent Asthma complication type: with status asthmaticus Qualified Code(s): J45.22 - Mild intermittent asthma with status asthmaticus (4) Bipolar II disorder Status: Suspected (5) Nicotine dependence Status: Acute Qualifiers: Nicotine product type: cigarettes Substance use status: in withdrawal Qualified Code(s): F17.213 - Nicotine dependence, cigarettes, with withdrawal (6) Opioid dependence with withdrawal Status: Acute - AMA Did Patient Leave Against Medical Advice: Yes
[2019-02-24] MEDS ORDERED: chlordiazePOXIDE HCL 10 MG CAPSULE PO SCH (21:00)
[2019-02-24] MEDS ORDERED: chlordiazePOXIDE HCL 10 MG CAPSULE PO PRN (21:00)
[2019-02-25] MEDS ORDERED: METHADONE HCL 5 MG TABLET (FOR DETOX USE ONLY) PO ONE (06:00)
== END 2019-02-24 10:10 | disposition left against medical advice (07) | DRG 770 ==
LOC: YASAS 16:53 → Y3N 21:26
PROVIDERS: ADMIT Surgery; ATTEND Surgery
PROC: HZ2ZZZZ Detoxification Services for Substance Abuse Treatment (ICD-10-PCS; principal; 2019-02-22)
DX: F10.230 Alcohol dependence with withdrawal, uncomplicated (principal); F11.23 Opioid dependence with withdrawal; F17.213 Nicotine dependence, cigarettes, with withdrawal; F31.81 Bipolar II disorder; J45.22 Mild intermittent asthma with status asthmaticus; R63.4 Abnormal weight loss; Z68.21 Body mass index [BMI] 21.0-21.9, adult; Z88.0 Allergy status to penicillin; Z88.8 Allergy status to other drugs, medicaments and biological substances
CPT/HCPCS: 36415; 80053; 85027; 86593; J0735

== ENCOUNTER 2019-03-14 10:05 | Inpatient (IN) | payer OTHER ==
[2019-03-14 10:27] VITALS: BMI 20.5
--- NOTE | 2019-03-14 11:04 | HP ---
COWS - Scale Resting Pulse: 0= [place] 80 or Below Sweatin= Chills/Flushing Restless Observation: 1= Difficult to Sit Still Pupil Size: 1= Pupils >than Normal Bone or Joint Aches: 1= Mild Discomfort Runny Nose/ Eye Tearin= Runny Nose/Eyes GI Upset > 30mins: 2= Nausea/Diarrhea Tremor Observation: 1= Tremor [place], Not Seen Yawning Observation: 0= None Anxiety or Irritability: 4=Extreme Anxiety Goose Flesh Skin: 0=Smooth Skin COWS Score: 13 CIWA Score Nausea/Vomitin-No Nausea/No Vomiting Muscle Tremors: 2 Anxiety: 4-Mod. Anxious/Guarded Agitation: 3 Paroxysmal Sweats: 3 Orientation: 0-Oriented Tacttile Disturbances: 2-Mild Itch/Numbness/Burn Auditory Disturbances: 0-None Visual Disturbances: 0-None Headache: 3-Moderate CIWA-Ar Total Score: 17 - Admission Criteria OASAS Guidelines: Admission for Medically Managed Detox: Requires at least one of the followin. CIWA greater than 12 2. Seizures within the past 24 hours 3. Delirium tremens within the past 24 hours 4. Hallucinations within the past 24 hours 5. Acute intervention needed for co occurring medical disorder 6. Acute intervention needed for co occurring psychiatric disorder 7. Severe withdrawal that cannot be handled at a lower level of care (continued vomiting, continued diarrhea, abnormal vital signs) requiring intravenous medication and/or fluids 8. Patient presents the following: CIWA greater than 12 Admission Criteria Met: Admission criteria met Admission ROS [facility] Chief Complaint: " I feel like i keep doing this I am going to , I want to live" withdrawal symptoms Allergies/Adverse Reactions: Allergies Allergy/AdvReac Type Severity Reaction Status Date / Time amoxicillin Allergy Mild diarrhea Verified 02/22/19 19:09 Penicillins Allergy Mild diarrhea Verified 02/22/19 19:09 chlordiazepoxide AdvReac Verified 02/22/19 19:09 [From Librium] ziprasidone HCl [From Geodon] AdvReac Verified 02/22/19 19:09 ziprasidone mesylate AdvReac Verified 02/22/19 19:09 [From Geodon] History of Present Illness: Patient is a 28 yo female, homeless, with hx of nicotine, alcohol, heroin (nasal ), marijuana, cocaine, , street BUP, li / ecstasy is here for detox, this is is one of multiple admissions, d/t relapse. Last admission 02/22/19 - 02/24/19 left AMA. Utox positive for BASHIR, OPI, FEN, OXY, MTD, BZO, BUP. Report was seen at [facility] ED for two days ago and d/c this morning seen for symptoms and UTI. Reports hx of MAT with Suboxone outpatient, reports last follow up was November 2018. PMHX: asthma, depression, bipolar d/o ( non-adherence with meds) . Denies suicidal / homicidal ideation or hx of suicide attempts. Longest period of sobriety one year, reports relapsed in April 2018. Exam Limitations: No Limitations - Ebola screening Have you traveled outside of the country in the last 21 days: No (N) Have you had contact with anyone from an Ebola affected area: No Do you have a fever: No - Review of Systems Constitutional: Chills, Loss of Appetite, Unintentional Wgt. Loss, Other (cold sore) EENT: reports: Tearing, Nose Congestion Respiratory: reports: Cough (x 1 week), Wheezing Cardiac: reports: No Symptoms Reported GI: reports: Constipated, Poor Appetite, Poor Fluid Intake : reports: See HPI, Burning Musculoskeletal: reports: Back Pain, Joint Pain Integumentary: reports: Dryness Neuro: reports: Headache Endocrine: reports: No Symptoms Reported Hematology: reports: No Symptoms Reported Psychiatric: reports: Orientated x3, Agitated, Anxious Other Systems: Reviewed and Negative Patient History - Patient Medical History Hx Anemia: No Hx Asthma: Yes (Albuterol) Hx Chronic Obstructive Pulmonary Disease (COPD): No Hx Cancer: No Hx Cardiac Disorders: No Hx Congestive Heart Failure: No Hx Hypertension: No Hx Hypercholesterolemia: No Hx Pacemaker: No HX Cerebrovascular Accident: No Hx Seizures: No Hx Dementia: No Hx Diabetes: No Hx Gastrointestinal Disorders: No Hx Liver Disease: No Hx Genitourinary Disorders: No Hx Sexually Transmitted Disorders: No Hx Renal Disease (ESRD): No Hx Thyroid Disease: No Hx Human Immunodeficiency Virus (HIV): No (Negative 2017) Hx Hepatitis C: No Hx Depression: Yes Hx Suicide Attempt: No (Denies suicide attempt and suicidal ideation at this time) Hx Bipolar Disorder: Yes (Latuda, lamictile) Hx Schizophrenia: No - Patient Surgical History Past Surgical History: Yes Hx Neurologic Surgery: No Hx Cataract Extraction: No Hx Cardiac Surgery: No Hx Lung Surgery: No Hx Breast Surgery: No Hx Breast Biopsy: No Hx Abdominal Surgery: No Hx Appendectomy: No Hx Cholecystectomy: No Hx Genitourinary Surgery: No Hx Section: No Hx Orthopedic Surgery: Yes (CLUB FOOT [LEFT ] AT ) Hx Hysterectomy: No Anesthesia Reaction: No - PPD History Date: 10/28/18 Results: 0 mm - Reproductive History Patient is a Female of Child Bearing Age (11 -55 yrs old): Yes Last Menstrual Period: 11/27/18 Patient : Yes - Smoking Cessation Smoking history: Current every day smoker Have you smoked in the past 12 months: Yes Aproximately how many cigarettes per day: 7 Cigars Per Day: 0 Hx Chewing Tobacco Use: No Initiated information on smoking cessation: Yes 'Breaking Loose' booklet given: 03/14/19 - Substance & Tx. History Hx Alcohol Use: Yes Hx Substance Use: Yes Substance Use Type: Cocaine, Heroin - Substances abused Heroin Substance route: Inhalation Frequency: Daily Amount used: 3 -5 bags /day Age of first use: 23 Date of last use: 03/13/19 Alcohol Substance route: Oral Frequency: Daily Amount used: 1 pint Age of first use: 13 Date of last use: 03/13/19 Crack Substance route: Smoking Frequency: Daily Amount used: $200 Age of first use: 23 Date of last use: 03/13/19 Family Disease History - Family Disease History Family Disease History: Diabetes: Mother, [place]: Grandparent Admission Physical Exam S - Vital Signs Vital Signs: Vital Signs - 24 hr 03/14/19 10:14 Temperature 97.7 F Pulse Rate 76 Respiratory 18 Rate Blood Pressure 101/67 - Physical General Appearance: Yes: Disheveled (unkempt, dirty and malodorous), Mild Distress, Thin, Irritable, Sweating, Anxious HEENTM: Yes: EOMI, Hearing grossly Normal, Normal ENT Inspection, Normocephalic , Normal Voice, CRISTIANE, Tm's normal Respiratory: Yes: Chest Non-Tender, Lungs Clear, No Respiratory Distress, No Accessory Muscle Use, Wheezing Neck: Yes: Within Normal Limits Breast: Yes: Breast Exam Deferred Cardiology: Yes: Regular Rhythm, Regular Rate Abdominal: Yes: Normal Bowel Sounds, Non Tender, Flat, Soft Genitourinary: Yes: Within Normal Limits Back: Yes: Normal Inspection Musculoskeletal: Yes: full range of Motion, Gait Steady, Pelvis Stable, Back pain Extremities: Yes: Normal Capillary Refill, Normal Inspection, Normal Range of Motion, Non-Tender Neurological: Yes: 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 NML intact, Fully Oriented, Alert, Motor Strength 5/5, Depressed Affect Integumentary: Yes: Normal Color, Warm, Diaphoresis, Track Yi (bilateral forearms, + brasion b/t lower extremities, no infection, + bruise left fore arm) , Other Lymphatic: Yes: Within Normal Limits - Diagnostic (1) Alcohol dependence with uncomplicated withdrawal Current Visit: Yes Status: Acute (2) Nicotine dependence Current Visit: Yes Status: Acute Qualifiers: Nicotine product type: cigarettes Substance use status: in withdrawal Qualified Code(s): F17.213 - Nicotine dependence, cigarettes, with withdrawal (3) Opioid dependence with withdrawal Current Visit: Yes Status: Acute (4) Asthma Current Visit: Yes Status: Chronic Qualifiers: Asthma severity: mild Asthma persistence: intermittent Asthma complication type: with status asthmaticus Qualified Code(s): J45.22 - Mild intermittent asthma with status asthmaticus (5) UTI (urinary tract infection) Current Visit: Yes Status: Acute Qualifiers: Urinary tract infection type: site unspecified (6) Cocaine dependence, uncomplicated Current Visit: Yes Status: Chronic (7) History of bipolar disorder Current Visit: Yes Status: Suspected Cleared for Admission [facility] - Detox or Rehab [facility] Level of Care: Medically Managed Detox Regimen/Protocol: Methadone/Valium Breathalyzer - Breathalyzer Breathalyzer: 0 POC Urine test - Test device test lot number: [id number] Expiration date: 07/26/20 - Control test control: Yes Urine Drug Screen - Test Device Lot number: [id number] Expiration date: 11/26/20 - Control Is test valid?: Yes - Results Drug screen NEGATIVE: No Urine drug screen results: BASHIR-Cocaine, FEN-Fentanyl, MOP-Opiates, OXY-Oxycodone , MTD-Methadone, BZO-Benzodiazepines, BUP-Suboxone Inpatient Rehab Admission - Rehab Decision to Admit Inpatient rehab admission?: No
[2019-03-14] MEDS ORDERED: ALBUTEROL SO4 8 GM HFA INHALER IH PRN (11:28)
[2019-03-14] MEDS ORDERED: ALBUTEROL SO4 0.083% IH SOL 2.5 MG/3 ML VIAL.NEB. NEB PRN (11:28)
[2019-03-14] MEDS ORDERED: BISMUTH SUBSALICYLATE 524 MG/30 ML UD PO PRN (11:29)
[2019-03-14] MEDS ORDERED: MAG HYDROX/AL HYDROX/SIMETH 30 ML UNIT-DOSE CUP PO PRN (11:29)
[2019-03-14] MEDS ORDERED: MELATONIN 5 MG TABLETS PO PRN (11:29)
[2019-03-14] MEDS ORDERED: IBUPROFEN 400 MG TABLET (FP) PO PRN (11:29)
[2019-03-14] MEDS ORDERED: MAGNESIUM CITRATE 300 ML BOTTLE PO PRN (11:29)
[2019-03-14] MEDS ORDERED: MAGNESIUM HYDROX 2400MG/30ML ORAL SUSPENSION 30 ML CUP PO PRN (11:29)
[2019-03-14] MEDS ORDERED: NICOTINE POLACRILEX 2 MG GUM BUC PRN (11:29)
[2019-03-14] MEDS ORDERED: ACETAMINOPHEN 325 MG TABLET (FP) PO PRN (11:29)
[2019-03-14] MEDS ORDERED: MENTHOL/PHENOL 1 EACH UD MM PRN (11:29)
[2019-03-14] MEDS ORDERED: METHADONE HCL 10 MG TABLET (FOR DETOX USE ONLY) PO ONE ×2 (11:33→23:00)
[2019-03-14] MEDS: METHOCARBAMOL 500 MG TABLET PO PRN (11:56)
[2019-03-14] MEDS: diazePAM 5 MG TABLET PO SCH ×2 (14:18→22:57)
[2019-03-14] MEDS: NITROFURANTOIN MACROCRYSTAL 50 MG CAPSULE (FP) PO SCH (19:39)
[2019-03-14] MEDS: diazePAM 5 MG TABLET PO PRN (19:42)
[2019-03-14] MEDS: THIAMINE HCL 100 MG TABLET (FP) PO SCH (22:58)
[2019-03-15] MEDS: NITROFURANTOIN MACROCRYSTAL 50 MG CAPSULE (FP) PO SCH ×5 (00:49→23:20)
[2019-03-15] MEDS: diazePAM 5 MG TABLET PO SCH ×3 (06:18→22:17)
--- NOTE | 2019-03-15 09:47 | CONSULT ---
[facility] Psychiatric Consult - Data Date of interview: 03/15/19 Admission source: [facility] Identifying data: Patient is a 28 year old single, without children,unemployed, homeless, and is not receiving financial assistance. This is one of multiple admissions for patient. Patient admitted to for alcohol and cocaine dependence. Substance Abuse History: Smoking Cessation. Smoking history: Current every day smoker. Have you smoked in the past 12 months: Yes. Aproximately how many cigarettes per day: 7. Cigars Per Day: 0. Hx Chewing Tobacco Use: No. Initiated information on smoking cessation: Yes. 'Breaking Loose' booklet given : 03/14/19. - Substance & Tx. History. Hx Alcohol Use: Yes. Hx Substance Use : Yes. Substance Use Type: Cocaine, Heroin. - Substances abused. Heroin. Substance route: Inhalation. Frequency: Daily. Amount used: 3 -5 bags /day. Age of first use: 23. Date of last use: 03/13/19. Alcohol. Substance route : Oral. Frequency: Daily. Amount used: 1 pint. Age of first use: 13. Date of last use: 03/13/19. Crack. Substance route: Smoking. Frequency: Daily. Amount used: $200. Age of first use: 23. Date of last use: 03/13/19 Medical History: Asthma Psychiatric History: Patient reports history of hospitalizations although today states none were related to psychiatry. As per previous entries patient reported two psychiatric hospitalization ([place] and [facility] ). Patient with a history of noncompliance. She reports h/o outpatient clinic at [facility], [facility], and [facility]. Ms. Miranda reports h/o accepting latuda, gabapentin, lamitcal, and depakote. Diagnosis of Bipolar disorder. States she is not under the care of a psychiatric provider and is therefore not on medications. Patient denies h/o suicide attempt. At present, patient is lethargic and irritable. Physical/Sexual Abuse/Trauma History: denies. Mental Status Exam - Mental Status Exam Alert and Oriented to: Time, Place, Person Cognitive Function: Good Patient Appearance: Unkempt Mood: Withdrawn, Irritable Affect: Mood Congruent Patient Behavior: Cooperative Speech Pattern: Delayed Voice Loudness: Moderately Soft/Quiet Thought Process: Goal Oriented Thought Disorder: Not Present Hallucinations: Denies Suicidal Ideation: Denies Homicidal Ideation: Denies Insight/Judgement: Poor Sleep: Poorly Appetite: Fair Muscle strength/Tone: Normal Gait/Station: Normal Psychiatric Findings - Problem List ([place] 1, 2,3) (1) Alcohol dependence with uncomplicated withdrawal Current Visit: Yes Status: Acute (2) Nicotine dependence Current Visit: Yes Status: Chronic Qualifiers: Nicotine product type: cigarettes Substance use status: in withdrawal Qualified Code(s): F17.213 - Nicotine dependence, cigarettes, with withdrawal (3) Opioid dependence with withdrawal Current Visit: Yes Status: Acute (4) Cocaine dependence, uncomplicated Current Visit: Yes Status: Chronic (5) Substance-induced sleep disorder Current Visit: Yes Status: Acute (6) Substance induced mood disorder Current Visit: Yes Status: Acute (7) Sedative, hypnotic or anxiolytic dependence with withdrawal, uncomplicated Current Visit: Yes Status: Acute (8) Non-compliance Current Visit: Yes Status: Chronic - Initial Treatment Plan Initial Treatment Plan: Psychoeducation provided. Detoxification in progress. Will resume Latuda 20mg + Gabapentin 300mg TID. Benefits and side effects discussed. Verbal consent given.
[2019-03-15] MEDS ORDERED: METHADONE HCL 10 MG TABLET (FOR DETOX USE ONLY) PO ONE (10:00)
[2019-03-15 10:07] LABS: ALBUMIN 2.6 g/dl (3.4-5.0); BILIRUBIN,TOTAL 0.3 mg/dL (0.2-1); CALCIUM 8.5 mg/dL (8.5-10.1); CREATININE 0.5 mg/dL (0.55-1.3); POTASSIUM 3.4 mmol/L (3.5-5.1)
[2019-03-15 10:12] LABS: HEMATOCRIT 31.4 % (32.4-45.2); HEMOGLOBIN 10.3 GM/dL (10.7-15.3); MCH 28.1 pg (25.7-33.7); MCHC 32.7 g/dl (32.0-36.0); MEAN PLT VOLUME 8.2 fl (7.5-11.1); PLATELET COUNT 287 K/MM3 (134-434); RBC 3.65 M/mm3 (3.60-5.2); RDW 14.5 % (11.6-15.6); WHITE BLOOD COUNT 6.6 K/mm3 (4.0-10.0)
[2019-03-15] MEDS: PRENATAL VITAMINS W/ FOLIC ACID TABLET (FP) PO SCH (10:33)
[2019-03-15] MEDS: NICOTINE 14 MG/24 HOURS TOPICAL PATCH TD SCH (10:33)
[2019-03-15] MEDS ORDERED: POTASSIUM CHLORIDE TABS 20 MEQ TABLET.ER (FP) PO ONE (12:01)
--- NOTE | 2019-03-15 12:06 | PN ---
[facility] CIWA - CIWA Score Nausea/Vomitin-No Nausea/No Vomiting Muscle Tremors: 3 Anxiety: 3 Agitation: 3 Paroxysmal Sweats: 3 Orientation: 0-Oriented Tacttile Disturbances: 0-None Auditory Disturbances: 0-None Visual Disturbances: 0-None Headache: 0-None Present CIWA-Ar Total Score: 12 S COWS - Scale Resting Pulse: 0= [place] 80 or Below Sweatin=Flushed/Facial Moisture Restless Observation: 1= Difficult to Sit Still Pupil Size: 0= Normal to Room Light Bone or Joint Aches: 2= Severe Diffuse Aches Runny Nose/ Eye Tearin= Nasal Congestion GI Upset > 30mins: 1= Stomach Cramp Tremor Observation of Outstretched Hands: 2= Slight Tremor Visible Yawning Observation: 0= None Anxiety or Irritability: 2=Irritable/Anxious Goose Flesh Skin: 0=Smooth Skin COWS Score: 11 S Progress Note (SOAP) Subjective: body aches sweats shakes agitation anxiety interrupted sleep painful sore/blister on my lip Objective: 03/15/19 12:03 Vital Signs Temperature 98.2 F 03/15/19 09:41 Pulse Rate 79 03/15/19 09:41 Respiratory Rate 18 03/15/19 09:41 Blood Pressure 137/78 03/15/19 09:41 O2 Sat by Pulse Oximetry (%) Laboratory Tests 03/14/19 03/15/19 03/15/19 10:51 07:00 07:00 WBC 6.6 RBC 3.65 Hgb 10.3 L Hct 31.4 L MCV 86.0 MCH 28.1 MCHC 32.7 RDW 14.5 Plt Count 287 MPV 8.2 Sodium 140 Potassium 3.4 L Chloride 103 Carbon Dioxide 29 Anion Gap 8 BUN 11 Creatinine 0.5 L Est GFR (CKD-EPI)AfAm 152.65 Est GFR (CKD-EPI)NonAf 131.71 Random Glucose 131 H Calcium 8.5 Total Bilirubin 0.3 AST 16 ALT 21 Alkaline Phosphatase 63 Total Protein 6.0 L Albumin 2.6 L POC Urine HCG, Qual Negative labs noted mild low potassium noted aaox3 ambulating no acute distress Assessment: 03/15/19 12:03 withdrawal sx crusted/cold sore HS1 noted Plan: continue detox increase fluids valtrex 500mg bid x 7 days ordered kdur 40meqx one
[2019-03-15] MEDS: valACYclovir HCL 500 MG TABLET (FP) PO SCH ×2 (13:18→22:17)
[2019-03-15] MEDS: GABAPENTIN 300 MG CAPSULE (FP) PO SCH ×2 (13:18→22:17)
[2019-03-15] MEDS: cloNIDine HCL 0.1 MG TABLET PO PRN ×2 (13:18→22:16)
[2019-03-15] MEDS: metroNIDAZOLE 250 MG TABLET PO SCH ×2 (14:21→22:16)
[2019-03-15] MEDS: diazePAM 5 MG TABLET PO PRN (17:08)
[2019-03-15] MEDS: LURASIDONE HCL 20 MG TABLET PO SCH (17:09)
[2019-03-15] MEDS: THIAMINE HCL 100 MG TABLET (FP) PO SCH (22:18)
[2019-03-16] MEDS: diazePAM 5 MG TABLET PO PRN ×4 (03:46→22:16)
[2019-03-16] MEDS: ACETAMINOPHEN 325 MG TABLET (FP) PO PRN (03:47)
[2019-03-16] MEDS: metroNIDAZOLE 250 MG TABLET PO SCH ×3 (05:30→22:15)
[2019-03-16] MEDS: GABAPENTIN 300 MG CAPSULE (FP) PO SCH ×3 (05:30→22:16)
[2019-03-16] MEDS: NITROFURANTOIN MACROCRYSTAL 50 MG CAPSULE (FP) PO SCH ×4 (05:30→23:04)
[2019-03-16] MEDS ORDERED: diazePAM 5 MG TABLET PO ONE (06:00)
[2019-03-16] MEDS ORDERED: METHADONE HCL 10 MG TABLET (FOR DETOX USE ONLY) PO ONE (10:00)
[2019-03-16] MEDS: NICOTINE 14 MG/24 HOURS TOPICAL PATCH TD SCH (10:35)
[2019-03-16] MEDS: valACYclovir HCL 500 MG TABLET (FP) PO SCH ×2 (10:35→22:16)
[2019-03-16] MEDS: PRENATAL VITAMINS W/ FOLIC ACID TABLET (FP) PO SCH (10:40)
--- NOTE | 2019-03-16 11:17 | PN ---
[facility] CIWA - CIWA Score Nausea/Vomitin-No Nausea/No Vomiting Muscle Tremors: 3 Anxiety: 3 Agitation: 3 Paroxysmal Sweats: 2 Orientation: 0-Oriented Tacttile Disturbances: 0-None Auditory Disturbances: 0-None Visual Disturbances: 0-None Headache: 0-None Present CIWA-Ar Total Score: 11 S COWS - Scale Resting Pulse: 0= [place] 80 or Below Sweatin= Chills/Flushing Restless Observation: 1= Difficult to Sit Still Pupil Size: 0= Normal to Room Light Bone or Joint Aches: 2= Severe Diffuse Aches Runny Nose/ Eye Tearin= Nasal Congestion GI Upset > 30mins: 0= None Tremor Observation of Outstretched Hands: 1= Tremor [place], Not Seen Yawning Observation: 1= 1-2x During Session Anxiety or Irritability: 2=Irritable/Anxious Goose Flesh Skin: 0=Smooth Skin COWS Score: 9 S Progress Note (SOAP) Subjective: anxiety sweats shakes interrupted sleep Objective: 03/16/19 11:16 Vital Signs Temperature 98.1 F 03/16/19 09:34 Pulse Rate 78 03/16/19 09:34 Respiratory Rate 16 03/16/19 09:34 Blood Pressure 117/70 03/16/19 09:34 O2 Sat by Pulse Oximetry (%) Laboratory Tests 03/14/19 03/15/19 03/15/19 10:51 07:00 07:00 WBC 6.6 RBC 3.65 Hgb 10.3 L Hct 31.4 L MCV 86.0 MCH 28.1 MCHC 32.7 RDW 14.5 Plt Count 287 MPV 8.2 Sodium 140 Potassium 3.4 L Chloride 103 Carbon Dioxide 29 Anion Gap 8 BUN 11 Creatinine 0.5 L Est GFR (CKD-EPI)AfAm 152.65 Est GFR (CKD-EPI)NonAf 131.71 Random Glucose 131 H Calcium 8.5 Total Bilirubin 0.3 AST 16 ALT 21 Alkaline Phosphatase 63 Total Protein 6.0 L Albumin 2.6 L POC Urine HCG, Qual Negative RPR Titer HIV 1&2 Antibody Screen HIV P24 Antigen 03/15/19 03/15/19 07:00 07:00 WBC RBC Hgb Hct MCV MCH MCHC RDW Plt Count MPV Sodium Potassium Chloride Carbon Dioxide Anion Gap BUN Creatinine Est GFR (CKD-EPI)AfAm Est GFR (CKD-EPI)NonAf Random Glucose Calcium Total Bilirubin AST ALT Alkaline Phosphatase Total Protein Albumin POC Urine HCG, Qual RPR Titer Nonreactive HIV 1&2 Antibody Screen Negative HIV P24 Antigen Negative aaox3 ambulating no acute distress Assessment: 03/16/19 11:16 withdrawal sx Plan: continue detox increase fluids
[2019-03-16] MEDS: hydrOXYzine PAMOATE 50 MG CAPSULE (FP) PO PRN (12:10)
[2019-03-16] MEDS: cloNIDine HCL 0.1 MG TABLET PO PRN (12:11)
[2019-03-16] MEDS ORDERED: COLLOIDAL OATMEAL 1 BAR EACH TP PRN (15:02)
--- NOTE | 2019-03-16 15:57 | PN ---
[facility] Progress Note Note: pt c/o of need of a sleeping aide and bacitracin oint for her cold sore trazadone 50mg x one and bacitracin oint ordered will reassess in am
[2019-03-16] MEDS: LURASIDONE HCL 20 MG TABLET PO SCH (17:30)
[2019-03-16] MEDS: BACITRACIN 0.9 GM PACKET TP SCH ×2 (17:40→22:15)
[2019-03-16] MEDS ORDERED: traZODone HCL 50 MG TABLET (FP) PO SCH (22:00)
[2019-03-16] MEDS: THIAMINE HCL 100 MG TABLET (FP) PO SCH (22:43)
[2019-03-17] MEDS: GABAPENTIN 300 MG CAPSULE (FP) PO SCH ×2 (05:56→13:15)
[2019-03-17] MEDS: metroNIDAZOLE 250 MG TABLET PO SCH ×2 (05:56→13:15)
[2019-03-17] MEDS: NITROFURANTOIN MACROCRYSTAL 50 MG CAPSULE (FP) PO SCH ×3 (05:56→17:16)
[2019-03-17] MEDS: diazePAM 5 MG TABLET PO PRN ×2 (06:00→10:28)
[2019-03-17] MEDS ORDERED: METHADONE HCL 10 MG TABLET (FOR DETOX USE ONLY) PO ONE (10:00)
[2019-03-17] MEDS: PRENATAL VITAMINS W/ FOLIC ACID TABLET (FP) PO SCH (10:16)
[2019-03-17] MEDS: BACITRACIN 0.9 GM PACKET TP SCH (10:16)
[2019-03-17] MEDS: valACYclovir HCL 500 MG TABLET (FP) PO SCH (10:16)
[2019-03-17] MEDS: NICOTINE 14 MG/24 HOURS TOPICAL PATCH TD SCH (10:17)
[2019-03-17] MEDS: METHOCARBAMOL 500 MG TABLET PO PRN (10:30)
--- NOTE | 2019-03-17 13:09 | PN ---
[facility] Progress Note (SOAP) Subjective: anxiety body aches muscle cramping Objective: 03/17/19 13:08 Vital Signs Temperature 98.2 F 03/17/19 11:10 Pulse Rate 98 H 03/17/19 11:10 Respiratory Rate 18 03/17/19 11:10 Blood Pressure 134/76 03/17/19 11:10 O2 Sat by Pulse Oximetry (%) aaox3 ambulating no acute distress Assessment: 03/17/19 13:08 mild withdrawal sx Plan: continue detox increase fluids roboxin prn, motrin prn, tylenol prn d/c in the am to rehab
[2019-03-17] MEDS: ACETAMINOPHEN 325 MG TABLET (FP) PO PRN (14:39)
[2019-03-17] MEDS: hydrOXYzine PAMOATE 50 MG CAPSULE (FP) PO PRN (16:00)
[2019-03-17] MEDS: LURASIDONE HCL 20 MG TABLET PO SCH (17:16)
--- NOTE | 2019-03-17 18:07 | PN ---
[facility] Progress Note Note: Vital Signs Temperature 98.8 F 03/17/19 15:18 Pulse Rate 93 H 03/17/19 15:18 Respiratory Rate 19 03/17/19 15:18 Blood Pressure 123/75 03/17/19 15:18 O2 Sat by Pulse Oximetry (%) Patient left AMA reports she will like to go her suboxone program. Encourage to finish detox treatment and go to rehab and start Bup therapy while in rehab. Patient decline.
[2019-03-17 18:21] VITALS: BP 116/59; PULSE 82; TEMP 98.2
--- NOTE | 2019-03-17 21:23 | DS ---
[facility] Detox Discharge Summary Admission Date: 03/14/19 Discharge Date: 03/17/19 - History Present History: Alcohol Dependence, Cannabis Dependence, Opioid Dependence - Physical Exam Results Vital Signs: Vital Signs Temperature 98.2 F 03/17/19 18:20 Pulse Rate 82 03/17/19 18:20 Respiratory Rate 16 03/17/19 18:20 Blood Pressure 116/59 L 03/17/19 18:20 O2 Sat by Pulse Oximetry (%) - Treatment Hospital Course: Discharged Condition Good - Medication Discharge Medications: Ambulatory Orders Albuterol Sulfate Inhaler - [Ventolin HFA Inhaler -] 2 inh PO Q4H PRN #1 inhaler 02/24/19 Nitrofurantoin Monohyd/M-Cryst [Macrobid -] 100 mg PO BID 03/14/19 - Diagnosis (1) Alcohol dependence with uncomplicated withdrawal Status: Acute (2) Nicotine dependence Status: Chronic Qualifiers: Nicotine product type: cigarettes Substance use status: in withdrawal Qualified Code(s): F17.213 - Nicotine dependence, cigarettes, with withdrawal (3) Opioid dependence with withdrawal Status: Acute (4) Asthma Status: Chronic Qualifiers: Asthma severity: mild Asthma persistence: intermittent Asthma complication type: with status asthmaticus Qualified Code(s): J45.22 - Mild intermittent asthma with status asthmaticus (5) UTI (urinary tract infection) Status: Acute Qualifiers: Urinary tract infection type: site unspecified (6) Cocaine dependence, uncomplicated Status: Chronic (7) History of bipolar disorder Status: Suspected - AMA Did Patient Leave Against Medical Advice: Yes
[2019-03-18] MEDS ORDERED: METHADONE HCL 5 MG TABLET (FOR DETOX USE ONLY) PO ONE (06:00)
== END 2019-03-17 18:29 | disposition left against medical advice (07) | DRG 770 ==
LOC: YASAS 10:05 → Y6N 11:29
PROVIDERS: ADMIT Surgery; ATTEND Surgery
PROC: HZ2ZZZZ Detoxification Services for Substance Abuse Treatment (ICD-10-PCS; principal; 2019-03-14)
DX: F11.23 Opioid dependence with withdrawal (principal); F10.230 Alcohol dependence with withdrawal, uncomplicated; F13.230 Sedative, hypnotic or anxiolytic dependence with withdrawal, uncomplicated; F14.20 Cocaine dependence, uncomplicated; F17.213 Nicotine dependence, cigarettes, with withdrawal; F19.24 Other psychoactive substance dependence with psychoactive substance-induced mood disorder; F19.282 Other psychoactive substance dependence with psychoactive substance-induced sleep disorder; F31.9 Bipolar disorder, unspecified; J45.22 Mild intermittent asthma with status asthmaticus; N39.0 Urinary tract infection, site not specified; E87.6 Hypokalemia; Z88.0 Allergy status to penicillin; Z88.8 Allergy status to other drugs, medicaments and biological substances; Z91.19 Patient's noncompliance with other medical treatment and regimen
CPT/HCPCS: 36415; 80053; 81025; 85027; 86593; 86803; 87389; J0735

== ENCOUNTER 2020-07-07 13:29 | Inpatient (IN) | payer OTHER ==
[2020-07-07 17:00] VITALS: BMI 22.4
--- NOTE | 2020-07-07 20:00 | HP ---
COWS - Scale Resting Pulse: 0= [place] 80 or Below Sweatin=Flushed/Facial Moisture Restless Observation: 1= Difficult to Sit Still Pupil Size: 5= Only [place] of [place] Seen (Pupils = 6 mm) Bone or Joint Aches: 2= Severe Diffuse Aches Runny Nose/ Eye Tearin= Nasal Congestion GI Upset > 30mins: 2= Nausea/Diarrhea (w/o diarrhea) Tremor Observation: 2= Slight Tremor Visible Yawning Observation: 0= None Anxiety or Irritability: 2=Irritable/Anxious Goose Flesh Skin: 5=Prominent Piloerection COWS Score: 22 CIWA Score Nausea/Vomitin-Mild Nausea/No Vomiting Muscle Tremors: 3 Anxiety: 3 Agitation: 3 Paroxysmal Sweats: 3 (Increased facial moisture) Orientation: 1-Uncertain about Date Tacttile Disturbances: 1-Very Mild Itch/Numbness Auditory Disturbances: 0-None Visual Disturbances: 0-None Headache: 3-Moderate (Frontal headache "8". Denies head injury) CIWA-Ar Total Score: 18 - Admission Criteria OASAS Guidelines: Admission for Medically Managed Detox: Requires at least one of the followin. CIWA greater than 12 2. Seizures within the past 24 hours 3. Delirium tremens within the past 24 hours 4. Hallucinations within the past 24 hours 5. Acute intervention needed for co occurring medical disorder 6. Acute intervention needed for co occurring psychiatric disorder 7. Severe withdrawal that cannot be handled at a lower level of care (continued vomiting, continued diarrhea, abnormal vital signs) requiring intravenous medication and/or fluids 8. Patient presents the following: CIWA greater than 12 Admission Criteria Met: Admission criteria met Admitting History and Physical - Past Medical History ...LMP: 01/06/20 - Smoking History Smoking history: Current some day smoker Have you smoked in the past 12 months: Yes Aproximately how many cigarettes per day: 7 - Alcohol/Substance Use Hx Alcohol Use: No Admission ROS [facility] - HPI Chief Complaint: "Here because I need help to get clean from alcohol and drugs." Allergies/Adverse Reactions: Allergies Allergy/AdvReac Type Severity Reaction Status Date / Time amoxicillin Allergy Mild diarrhea Verified 07/07/20 20:50 Penicillins Allergy Mild diarrhea Verified 07/07/20 20:50 ziprasidone mesylate AdvReac Intermediate Verified 07/07/20 20:50 [From Geodon] ziprasidone HCl [From Bob] AdvReac Verified 07/07/20 20:50 History of Present Illness: 30 yo w/ multiple admissions presents with alcohol and opioid withdrawal symptoms, seeking detox. Denies seizures, blackouts or overdoses. LAURA: 0.0 UTox: + BASHIR/FEN/MOP/BAR/BZO Alcohol use began at age 13. Currently 2-3 pints vodka/day. Last drink this a.m. Opioid use began at age 23. Currently uses 1-2 bundles/day/IV. Last used this a.m. Does not share needles or works. Cocaine use began at age 23. Using $1-300/day/Smokes Benzo use began at age 18. Uses 2-3 2 mg Xanax/day. Nicotine use began at age 13. Smokes 1/2 PPD. PMHx: Asthma, UTI, Cough MHHx: Depression. Insomnia, Denies thoughts of harming self. Does not see a psychiatrist SHx: Homeless, Unemployed. Current legal issues. Patient Name: Chelita Miranda Date: 1990 Address: [place] [address] Sex: Female Rx Written Rx Dispensed Drug Quantity Days Supply Prescriber Name Payment Method Dispenser 12/14/2019 12/14/2019 buprenorphine-naloxone 12-3 mg sl film 30 30 Coco Hardin MD Medicaid [facility] 11/16/2019 11/16/2019 buprenorphine-naloxone 4-1 mg sl film 30 30 Coco Hardin MD Medicaid [facility] 10/15/2019 10/20/2019 buprenorphine-naloxone 8-2 mg sl film 30 30 Carin Newton Medicaid [facility] 10/19/2019 10/19/2019 buprenorphine-naloxone 12-3 mg sl film 30 30 Coco Hardin MD Medicaid [facility] 09/22/2019 09/22/2019 buprenorphine-naloxone 8-2 mg sl film 30 30 Coco Hardin MD Medicaid [facility] 09/04/2019 09/04/2019 buprenorphine-naloxone 4-1 mg sl film 30 30 Coco Hardin MD Medicaid [facility] 07/31/2019 07/31/2019 buprenorphine-naloxone 4-1 mg sl film 30 30 Coco Hardin MD [facility] Date: 1990 Address: [address] [place] [id number] Sex: Female Rx Written Rx Dispensed Drug Quantity Days Supply Prescriber Name Payment Method Dispenser 05/01/2020 05/01/2020 buprenorphine-naloxone 8-2 mg sl tablet 15 8 Elysia De Santiago MD Insurance [facility] Exam Limitations: No Limitations - Ebola screening Have you traveled outside of the country in the last 21 days: No (Denies COVID exposure) Have you had contact with anyone from an Ebola affected area: No Have you been sick,other than usual withdrawal symptoms: No Do you have a fever: No - Review of Systems Constitutional: Chills, Diaphoresis, Changes in sleep (dIFFICULTY FALLING ASLEEP), Weight Stable EENT: reports: Nose Congestion, Dental Problems (Cavities - denies pain) Respiratory: reports: Cough (Cough x 2 days) Cardiac: reports: No Symptoms Reported GI: reports: Nausea, Indigestion (Acid reflus), Abdominal cramping : reports: Burning (x 2 weeks - Hx UTI -didn't commplete medication) Musculoskeletal: reports: Back Pain (r/t withdrawal), Muscle Pain (r/t withdrawal) Integumentary: reports: No Symptoms Reported Neuro: reports: Headache (Frontal headache "8"), Tremors Endocrine: reports: Increased Thirst Hematology: reports: No Symptoms Reported Psychiatric: reports: Judgement Intact, Mood/Affect Appropiate, Agitated, Anxious, Depressed (Denies thoughts of harming self) Patient History - Patient Medical History Hx Anemia: No Hx Asthma: Yes Hx Chronic Obstructive Pulmonary Disease (COPD): No Hx Cancer: No Hx Cardiac Disorders: No Hx Congestive Heart Failure: No Hx Hypertension: No Hx Hypercholesterolemia: No Hx Pacemaker: No HX Cerebrovascular Accident: No Hx Seizures: No Hx Dementia: No Hx Diabetes: No Hx Gastrointestinal Disorders: No Hx Liver Disease: No Hx Genitourinary Disorders: No Hx Sexually Transmitted Disorders: No Hx Renal Disease (ESRD): No Hx Thyroid Disease: No Hx Human Immunodeficiency Virus (HIV): No (Negative 2017) Hx Hepatitis C: No Hx Depression: Yes Hx Suicide Attempt: No Hx Bipolar Disorder: Yes (Latuda, lamictile) Hx Schizophrenia: No - Patient Surgical History Past Surgical History: Yes Hx Neurologic Surgery: No Hx Cataract Extraction: No Hx Cardiac Surgery: No Hx Lung Surgery: No Hx Breast Surgery: No Hx Breast Biopsy: No Hx Abdominal Surgery: No Hx Appendectomy: No Hx Cholecystectomy: No Hx Genitourinary Surgery: No Hx Section: No Hx Orthopedic Surgery: Yes (CLUB FOOT [LEFT ] AT ) Hx Hysterectomy: No Anesthesia Reaction: No - PPD History Previous Implant?: Yes Documented Results: Negative w/proof Implanted On Prior [facility] Admission?: Yes Date: 01/16/20 Results: 0 MM PPD to be Administered?: No - Reproductive History Patient is a Female of Child Bearing Age (11 -55 yrs old): Yes Last Menstrual Period: 01/06/20 - Smoking Cessation Smoking history: Current every day smoker Have you smoked in the past 12 months: Yes Aproximately how many cigarettes per day: 10 Cigars Per Day: 0 Hx Chewing Tobacco Use: No Initiated information on smoking cessation: Yes 'Breaking Loose' booklet given: 07/07/20 - Substance & Tx. History Hx Alcohol Use: Yes Hx Substance Use: Yes Substance Use Type: Alcohol, Cocaine, Heroin, Opiates, Tranquilizers (Benzo) Hx Substance Use Treatment: Yes (detox, rehab, past suboxone) - Substances abused Heroin Substance route: Injection Frequency: Daily Amount used: 2 bundles Age of first use: 23 Date of last use: 07/07/20 Alcohol Substance route: Oral Frequency: Daily Amount used: 2 pints of vodka Age of first use: 13 Date of last use: 07/06/20 Crack Substance route: Smoking Amount used: 100 to 200 dollars Age of first use: 23 Date of last use: 07/07/20 Admission Physical Exam B[facility] - Vital Signs Vital Signs: Vital Signs - 24 hr 07/07/20 16:58 Temperature 97.3 F L Pulse Rate 67 Respiratory 18 Rate Blood Pressure 121/79 - Physical General Appearance: Yes: Nourished, Moderate Distress, Severe Distress, Tremorous, Irritable, Anxious HEENTM: Yes: EOMI, Hearing grossly Normal, Normocephalic, Normal Voice, CRISTIANE (Pupils = 6 mm), Pharynx Normal, Other (Thickened saliva) Respiratory: Yes: Lungs Clear, Normal Breath Sounds, No Respiratory Distress Neck: Yes: No masses,lesions,Nodules, Supple Breast: Yes: Breast Exam Deferred Cardiology: Yes: Within Normal Limits Abdominal: Yes: Non Tender, Flat, Soft, Increased Bowel Sounds Genitourinary: Yes: Burning (w/ urination) Back: Yes: Normal Inspection Musculoskeletal: Yes: full range of Motion, Gait Steady, Joint Stiffness ((L) foot a bnormal structure @ ankle) Extremities: Yes: Normal Capillary Refill, Tremors Neurological: Yes: Alert, Motor Strength 5/5, Normal Response Integumentary: Yes: Normal Color, Warm, Moist, Track Yi Lymphatic: Yes: Within Normal Limits - Diagnostic (1) Dehydration symptoms Current Visit: Yes Status: Acute (2) Burning with urination Current Visit: Yes Status: Acute (3) Cough Current Visit: Yes Status: Chronic (4) Alcohol dependence with uncomplicated withdrawal Current Visit: Yes Status: Acute (5) Opioid dependence with withdrawal Current Visit: Yes Status: Acute (6) Sedative, hypnotic or anxiolytic dependence with withdrawal, uncomplicated Current Visit: Yes Status: Acute (7) Cocaine dependence, uncomplicated Current Visit: No Status: Chronic (8) Insomnia Current Visit: Yes Status: Chronic Qualifiers: Insomnia type: unspecified Qualified Code(s): G47.00 - Insomnia, unspecified (9) Nicotine dependence Current Visit: Yes Status: Chronic Qualifiers: Nicotine product type: cigarettes Substance use status: uncomplicated Qualified Code(s): F17.210 - Nicotine dependence, cigarettes, uncomplicated (10) H/O clubfoot correction Current Visit: Yes Status: Chronic (11) History of asthma Current Visit: Yes Status: Chronic Cleared for Admission [facility] - Detox or Rehab Detox Regimen/Protocol: Ativan, Methadone Claeared for Rehab Admission: No Breathalyzer - Breathalyzer Breathalyzer: 0 POC Urine test - Test device test lot number: [id number] Expiration date: 07/26/20 - Control test control: Yes - Result Urine Test Results: Negative - NO line present Urine Drug Screen - Test Device Lot number: [id number] Expiration date: 05/30/22 - Control Is test valid?: Yes - Results Drug screen NEGATIVE: No Urine drug screen results: BASHIR-Cocaine, FEN-Fentanyl, MOP-Opiates, BAR- Barbiturates, BZO-Benzodiazepines Inpatient Rehab Admission - Rehab Decision to Admit Inpatient rehab admission?: No
[2020-07-07] MEDS ORDERED: MAG HYDROX/AL HYDROX/SIMETH 30 ML UNIT-DOSE CUP PO PRN (20:37)
[2020-07-07] MEDS ORDERED: NICOTINE POLACRILEX 2 MG GUM BUC PRN (20:37)
[2020-07-07] MEDS ORDERED: ONDANSETRON *ODT* 4 MG TABLET SL PRN (20:37)
[2020-07-07] MEDS ORDERED: ACETAMINOPHEN 325 MG TABLET (FP) PO PRN ×2 (20:37)
[2020-07-07] MEDS ORDERED: MAGNESIUM HYDROX 2400MG/30ML ORAL SUSPENSION 30 ML CUP PO PRN (20:37)
[2020-07-07] MEDS ORDERED: BISMUTH SUBSALICYLATE 524 MG/30 ML UD PO PRN (20:37)
[2020-07-07] MEDS ORDERED: LORazepam 2 MG TABLET PO ONE (20:37)
[2020-07-07] MEDS ORDERED: IBUPROFEN 400 MG TABLET (FP) PO PRN (20:37)
[2020-07-07] MEDS ORDERED: METHADONE HCL 10 MG TABLET (FOR DETOX USE ONLY) PO ONE (20:37)
[2020-07-07] MEDS ORDERED: MAGNESIUM CITRATE 300 ML BOTTLE PO PRN (20:37)
[2020-07-07] MEDS ORDERED: cloNIDine HCL 0.1 MG TABLET PO PRN (20:37)
[2020-07-07] MEDS ORDERED: MENTHOL/PHENOL 1 EACH UD MM PRN (20:37)
[2020-07-07] MEDS: MELATONIN 5 MG TABLETS PO SCH (21:58)
[2020-07-07] MEDS: THIAMINE HCL 100 MG TABLET (FP) PO SCH (21:58)
[2020-07-07] MEDS: guaiFENesin 200 MG/10 ML 10 ML UNIT-DOSE CUPS PO SCH (21:58)
[2020-07-07] MEDS ORDERED: ALBUTEROL SO4 HFA INHALER IH PRN (23:37)
[2020-07-07] MEDS: LORazepam 2 MG TABLET PO SCH (23:48)
[2020-07-08] MEDS: guaiFENesin 200 MG/10 ML 10 ML UNIT-DOSE CUPS PO SCH ×4 (05:54→22:21)
[2020-07-08] MEDS: LORazepam 2 MG TABLET PO SCH ×4 (05:54→22:22)
[2020-07-08] MEDS ORDERED: METHADONE (DETOX) 20 MG, METHADONE (DETOX) 5 MG PO ONE (10:00)
[2020-07-08] MEDS ORDERED: METHADONE HCL 10 MG TABLET (FOR DETOX USE ONLY) ONE (10:02)
[2020-07-08] MEDS ORDERED: METHADONE HCL 5 MG TABLET (FOR DETOX USE ONLY) ONE (10:02)
[2020-07-08] MEDS: PRENATAL VITAMINS W/ FOLIC ACID TABLET (FP) PO SCH (10:31)
[2020-07-08] MEDS: NICOTINE 14 MG/24 HOURS TOPICAL PATCH TD SCH (10:32)
--- NOTE | 2020-07-08 13:35 | CONSULT ---
[facility] Psychiatric Consult - Data Date of interview: 07/08/20 Identifying data: Patient is approached at bedside for psychiatric evaluation. Ms Miranda declines. " I am too tired to talk to psychiatrists." Nursing staff is made aware of patient's response. Psychiatry-Liaison will follow (new request necessary) as soon as the patient decides to cooperate with consultants.
--- NOTE | 2020-07-08 15:19 | PN ---
S CIWA - CIWA Score Nausea/Vomitin-No Nausea/No Vomiting Muscle Tremors: None Anxiety: 2 Agitation: 0-Normal Activity Paroxysmal Sweats: 3 Orientation: 0-Oriented Tacttile Disturbances: 1-Very Mild Itch/Numbness Auditory Disturbances: 2-Mild Harshness/Frighten Visual Disturbances: 1-Very Mild Sensitivity Headache: 0-None Present CIWA-Ar Total Score: 9 BHS COWS - Scale Resting Pulse: 1= [place] 81-100 Sweatin= Chills/Flushing Restless Observation: 1= Difficult to Sit Still Pupil Size: 0= Normal to Room Light Bone or Joint Aches: 1= Mild Discomfort Runny Nose/ Eye Tearin= None GI Upset > 30mins: 0= None Tremor Observation of Outstretched Hands: 2= Slight Tremor Visible Yawning Observation: 1= 1-2x During Session Anxiety or Irritability: 2=Irritable/Anxious Goose Flesh Skin: 3=Piloerection COWS Score: 12 BHS Progress Note (SOAP) Subjective: Anxious, Sweating, Body Aches, Fatigue, Interrupted Sleep. Objective: Patient A & O X 3; In No Acute Distress. 07/08/20 15:22 Vital Signs Temperature 98.4 F 07/08/20 08:54 Pulse Rate 93 H 07/08/20 08:54 Respiratory Rate 18 07/08/20 08:54 Blood Pressure 111/60 07/08/20 08:54 O2 Sat by Pulse Oximetry (%) 100 07/08/20 05:49 Patient refused to have Detox Admission Labs drawn. 07/08/20 15:23 Assessment: 07/08/20 15:24 WITHDRAWAL SYMPTOMS. Plan: Continue Detox.
[2020-07-08] MEDS: LORazepam 1 MG TABLET PO PRN ×2 (15:55→20:01)
[2020-07-08] MEDS: MICONAZOLE NITRATE 2% VAGINAL CREAM 45 GM TUBE VG SCH (22:21)
[2020-07-08] MEDS: METHOCARBAMOL 500 MG TABLET PO PRN (22:21)
[2020-07-08] MEDS: MELATONIN 5 MG TABLETS PO SCH (22:21)
[2020-07-08] MEDS: THIAMINE HCL 100 MG TABLET (FP) PO SCH (22:22)
[2020-07-09] MEDS: LORazepam 1 MG TABLET PO SCH ×4 (06:30→22:32)
[2020-07-09] MEDS: guaiFENesin 200 MG/10 ML 10 ML UNIT-DOSE CUPS PO SCH ×3 (06:31→14:05)
[2020-07-09] MEDS ORDERED: METHADONE HCL 10 MG TABLET (FOR DETOX USE ONLY) PO ONE (10:00)
[2020-07-09] MEDS: PRENATAL VITAMINS W/ FOLIC ACID TABLET (FP) PO SCH (10:51)
[2020-07-09] MEDS: NICOTINE 14 MG/24 HOURS TOPICAL PATCH TD SCH (10:51)
[2020-07-09] MEDS: hydrOXYzine PAMOATE 25 MG CAPSULE (FP) PO PRN ×2 (13:41→22:31)
[2020-07-09] MEDS: LORazepam 1 MG TABLET PO PRN (13:41)
[2020-07-09] MEDS: METHOCARBAMOL 500 MG TABLET PO PRN ×2 (13:41→22:31)
--- NOTE | 2020-07-09 19:48 | PN ---
[facility] CIWA - CIWA Score Nausea/Vomitin-Mild Nausea/No Vomiting Muscle Tremors: 2 Anxiety: 3 Agitation: 3 Paroxysmal Sweats: 2 Orientation: 0-Oriented Tacttile Disturbances: 0-None Auditory Disturbances: 0-None Visual Disturbances: 0-None Headache: 0-None Present CIWA-Ar Total Score: 11 S COWS - Scale Resting Pulse: 1= [place] 81-100 Sweatin= Chills/Flushing Restless Observation: 0= Sits Still Pupil Size: 0= Normal to Room Light Bone or Joint Aches: 2= Severe Diffuse Aches Runny Nose/ Eye Tearin= Runny Nose/Eyes GI Upset > 30mins: 2= Nausea/Diarrhea Tremor Observation of Outstretched Hands: 2= Slight Tremor Visible Yawning Observation: 0= None Anxiety or Irritability: 1=Feels Anxious/Irritable Goose Flesh Skin: 0=Smooth Skin COWS Score: 11 [facility] Progress Note (SOAP) Subjective: Tremor, chills, nausea, anxious Objective: 07/09/20 19:46 Last Vital Signs Temp Pulse Resp BP Pulse Ox 99.3 F 94 H 18 132/65 97 07/09/20 09:17 07/09/20 09:17 07/09/20 09:17 07/09/20 09:17 07/09/20 06:24 Elevated b/p noted: denies htn No admission labs available for review Assessment: 07/09/20 19:48 Withdrawal sxs Noted with elevated b/p Plan: Continue detox Encourage PO water intake Consider reordering admission labs if patient cooperative Elevated b/p: may be mood/withdrawal related, monitor b/p
[2020-07-09] MEDS: MELATONIN 5 MG TABLETS PO SCH (22:32)
[2020-07-09] MEDS: THIAMINE HCL 100 MG TABLET (FP) PO SCH (22:32)
[2020-07-09] MEDS: MICONAZOLE NITRATE 2% VAGINAL CREAM 45 GM TUBE VG SCH (22:51)
[2020-07-10] MEDS ORDERED: LORazepam 0.5 MG TABLET PO PRN
[2020-07-10] MEDS: LORazepam 0.5 MG TABLET PO SCH ×2 (05:54→10:20)
[2020-07-10] MEDS: hydrOXYzine PAMOATE 25 MG CAPSULE (FP) PO PRN ×2 (05:55→10:31)
[2020-07-10] MEDS ORDERED: METHADONE HCL 5 MG TABLET (FOR DETOX USE ONLY) ONE (08:37)
[2020-07-10] MEDS ORDERED: METHADONE HCL 10 MG TABLET (FOR DETOX USE ONLY) ONE (08:37)
[2020-07-10] MEDS ORDERED: METHADONE (DETOX) 10 MG, METHADONE (DETOX) 5 MG PO ONE (10:00)
[2020-07-10] MEDS: NICOTINE 14 MG/24 HOURS TOPICAL PATCH TD SCH (10:20)
[2020-07-10] MEDS: PRENATAL VITAMINS W/ FOLIC ACID TABLET (FP) PO SCH (10:21)
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
[2020-07-10] MEDS ORDERED: LURASIDONE HCL 20 MG TABLET PO SCH (12:00)
--- NOTE | 2020-07-10 12:01 | PN ---
[facility] CIWA - CIWA Score Nausea/Vomitin-No Nausea/No Vomiting Muscle Tremors: 3 Anxiety: 2 Agitation: 2 Paroxysmal Sweats: 2 Orientation: 0-Oriented Tacttile Disturbances: 0-None Auditory Disturbances: 0-None Visual Disturbances: 0-None Headache: 0-None Present CIWA-Ar Total Score: 9 BHS COWS - Scale Resting Pulse: 0= VT 80 or Below Sweatin= Chills/Flushing Restless Observation: 1= Difficult to Sit Still Pupil Size: 0= Normal to Room Light Bone or Joint Aches: 1= Mild Discomfort Runny Nose/ Eye Tearin= None GI Upset > 30mins: 0= None Tremor Observation of Outstretched Hands: 1= Tremor [place], Not Seen Yawning Observation: 1= 1-2x During Session Anxiety or Irritability: 1=Feels Anxious/Irritable Goose Flesh Skin: 0=Smooth Skin COWS Score: 6 BHS Progress Note (SOAP) Subjective: sweats shakes interrupted sleep I need to see psych because I want to go back on my psych meds Objective: 07/10/20 12:01 Vital Signs Temperature 98.2 F 07/10/20 09:17 Pulse Rate 75 07/10/20 09:17 Respiratory Rate 20 07/10/20 09:17 Blood Pressure 127/78 07/10/20 09:17 O2 Sat by Pulse Oximetry (%) 99 07/10/20 09:17 labs has been re-ordered Assessment: 07/10/20 12:03 withdrawals Plan: continue detox increase fluids psych ordered labs ordered
[2020-07-10] MEDS ORDERED: GABAPENTIN 300 MG CAPSULE PO SCH (14:00)
[2020-07-10 14:14] VITALS: BP 125/78; PULSE 79; TEMP 97.5
--- NOTE | 2020-07-10 15:36 | PN ---
[facility] Progress Note Note: pt wanted to leave now because she wants to go home. Pt said she is not ready for detox and wants to get high. Pt was offered all ancillary medication, along with psych medication that was ordered today and to give it all a chance to assist with her withdrawals. Pt was spoken to along with her counselor and RN to try to persuade her to stay to prevent relapse, seizure, DT, OD and or loss. However, pt chose to sign AMA. pt was also provided a RX for narcan to tow picker at her pharmacy.
--- NOTE | 2020-07-10 15:38 | DS ---
[facility] Detox Discharge Summary Admission Date: 07/07/20 - History Present History: Alcohol Dependence, Cannabis Dependence, Cocaine Dependence, Opioid Dependence, Sedative Dependence - Physical Exam Results Vital Signs: Vital Signs Temperature 97.5 F L 07/10/20 12:45 Pulse Rate 79 07/10/20 12:45 Respiratory Rate 16 07/10/20 12:45 Blood Pressure 125/78 07/10/20 12:45 O2 Sat by Pulse Oximetry (%) 99 07/10/20 12:45 - Treatment Hospital Course: Rehab Referral Accepted - Medication Discharge Medications: Ambulatory Orders Albuterol Sulfate Inhaler - [Ventolin HFA Inhaler -] 2 inh PO Q4H PRN #1 inhaler 02/24/19 - Diagnosis (1) Alcohol dependence with uncomplicated withdrawal Current Visit: Yes Status: Chronic (2) Burning with urination Current Visit: Yes Status: Acute (3) Dehydration symptoms Current Visit: Yes Status: Acute (4) Opioid dependence with withdrawal Current Visit: Yes Status: Chronic (5) Sedative, hypnotic or anxiolytic dependence with withdrawal, uncomplicated Current Visit: Yes Status: Chronic (6) Substance induced mood disorder Current Visit: Yes Status: Acute (7) Substance-induced anxiety disorder Current Visit: Yes Status: Acute (8) Asthma Current Visit: Yes Status: Chronic Qualifiers: Asthma severity: mild Asthma persistence: intermittent Asthma complication type: with status asthmaticus Qualified Code(s): J45.22 - Mild intermittent asthma with status asthmaticus (9) Cough Current Visit: Yes Status: Chronic (10) H/O clubfoot correction Current Visit: Yes Status: Chronic (11) History of asthma Current Visit: Yes Status: Chronic (12) Insomnia Current Visit: Yes Status: Chronic Qualifiers: Insomnia type: unspecified Qualified Code(s): G47.00 - Insomnia, unspecified (13) Nicotine dependence Current Visit: Yes Status: Chronic Qualifiers: Nicotine product type: cigarettes Substance use status: uncomplicated Qualified Code(s): F17.210 - Nicotine dependence, cigarettes, uncomplicated (14) PTSD (post-traumatic stress disorder) Current Visit: Yes Status: Ruled-out (15) Benzodiazepine dependence Current Visit: No Status: Acute (16) Bipolar II disorder Current Visit: No Status: Acute (17) Cocaine dependence, uncomplicated Current Visit: No Status: Acute (18) Drug-induced mood disorder Current Visit: No Status: Acute (19) Opioid dependence, uncomplicated Current Visit: No Status: Acute (20) Skin ulcer Current Visit: No Status: Acute Qualifiers: Non-pressure ulcer stage: limited to breakdown of skin Qualified Code(s): L98.491 - Non-pressure chronic ulcer of skin of other sites limited to breakdown of skin (21) Subcutaneous nodule of left upper extremity Current Visit: No Status: Acute (22) Substance-induced sleep disorder Current Visit: No Status: Acute (23) Threatened Current Visit: No Status: Acute (24) Vaginal bleeding in Current Visit: No Status: Acute (25) Weight loss Current Visit: No Status: Acute (26) Alcohol use disorder Current Visit: No Status: Chronic (27) Anxiety Current Visit: No Status: Chronic (28) Bipolar 1 disorder, depressed Current Visit: No Status: Chronic (29) Bipolar disorder Current Visit: No Status: Chronic (30) Cannabis dependence Current Visit: No Status: Chronic (31) Cannabis dependence, uncomplicated Current Visit: No Status: Chronic (32) Mood disorder Current Visit: No Status: Chronic (33) Nicotine dependence Current Visit: No Status: Chronic Qualifiers: Nicotine product type: cigarettes Substance use status: uncomplicated Qualified Code(s): F17.210 - Nicotine dependence, cigarettes, uncomplicated (34) Non-compliance Current Visit: No Status: Chronic (35) Opioid use disorder Current Visit: No Status: Chronic (36) Sedative dependence Current Visit: No Status: Chronic (37) Substance induced mood disorder Current Visit: No Status: Chronic (38) UTI (urinary tract infection) Current Visit: No Status: Chronic Qualifiers: Urinary tract infection type: site unspecified Hematuria presence: without hematuria Qualified Code(s): N39.0 - Urinary tract infection, site not specified (39) Bipolar II disorder Current Visit: No Status: Suspected (40) Depression Current Visit: No Status: Suspected Qualifiers: Depression Type: unspecified Qualified Code(s): F32.9 - Major depressive disorder, single episode, unspecified (41) History of bipolar disorder Current Visit: No Status: Suspected - AMA Did Patient Leave Against Medical Advice: Yes
[2020-07-10] MEDS ORDERED: MIRTAZAPINE 15 MG TABLET (FP) PO SCH (22:00)
[2020-07-11] MEDS ORDERED: LORazepam 0.5 MG TABLET PO ONE (05:00)
[2020-07-11] MEDS ORDERED: METHADONE HCL 10 MG TABLET (FOR DETOX USE ONLY) PO ONE (10:00)
[2020-07-12] MEDS ORDERED: METHADONE HCL 5 MG TABLET (FOR DETOX USE ONLY) PO ONE (06:00)
== END 2020-07-10 15:34 | disposition left against medical advice (07) | DRG 770 ==
LOC: YASAS 13:29 → Y6N 20:35
PROVIDERS: ADMIT Allergy & Immunology; ATTEND Allergy & Immunology
PROC: HZ2ZZZZ Detoxification Services for Substance Abuse Treatment (ICD-10-PCS; principal; 2020-07-07)
DX: F10.230 Alcohol dependence with withdrawal, uncomplicated (principal); F11.23 Opioid dependence with withdrawal; F13.230 Sedative, hypnotic or anxiolytic dependence with withdrawal, uncomplicated; F14.20 Cocaine dependence, uncomplicated; F17.210 Nicotine dependence, cigarettes, uncomplicated; F19.280 Other psychoactive substance dependence with psychoactive substance-induced anxiety disorder; F19.24 Other psychoactive substance dependence with psychoactive substance-induced mood disorder; F31.9 Bipolar disorder, unspecified; J45.20 Mild intermittent asthma, uncomplicated; G47.00 Insomnia, unspecified; N89.8 Other specified noninflammatory disorders of vagina; R63.8 Other symptoms and signs concerning food and fluid intake; R03.0 Elevated blood-pressure reading, without diagnosis of hypertension; R30.0 Dysuria; R05 Cough; Z62.810 Personal history of physical and sexual abuse in childhood; Z91.410 Personal history of adult physical and sexual abuse; Z88.0 Allergy status to penicillin; Z88.8 Allergy status to other drugs, medicaments and biological substances; Z56.0 Unemployment, unspecified; Z59.0 Homelessness
CPT/HCPCS: 81025; J0735; U0003

== ENCOUNTER 2021-06-04 15:06 | Inpatient (IN) | payer OTHER ==
[2021-06-04 18:37] VITALS: BMI 33.6
[2021-06-04] MEDS ORDERED: hydrOXYzine PAMOATE 25 MG CAPSULE (FP) PO PRN (18:57)
[2021-06-04] MEDS ORDERED: MENTHOL/PHENOL 1 EACH UD MM PRN (18:57)
[2021-06-04] MEDS ORDERED: ACETAMINOPHEN 325 MG TABLET (FP) PO PRN ×2 (18:57)
[2021-06-04] MEDS ORDERED: MAGNESIUM CITRATE 300 ML BOTTLE PO PRN (18:57)
[2021-06-04] MEDS ORDERED: BISMUTH SUBSALICYLATE 524 MG/30 ML PO PRN (18:57)
[2021-06-04] MEDS ORDERED: ONDANSETRON *ODT* 4 MG TABLET SL PRN (18:57)
[2021-06-04] MEDS ORDERED: ALBUTEROL SO4 HFA INHALER IH PRN (18:57)
[2021-06-04] MEDS ORDERED: MAGNESIUM HYDROX 2400MG/30ML ORAL SUSPENSION 30 ML CUP PO PRN (18:57)
[2021-06-04] MEDS ORDERED: METHOCARBAMOL 500 MG TABLET PO PRN (18:57)
[2021-06-04] MEDS ORDERED: MAG HYDROX/AL HYDROX/SIMETH 30 ML UNIT-DOSE CUP PO PRN (18:57)
[2021-06-04] MEDS ORDERED: cloNIDine HCL 0.1 MG TABLET PO PRN (18:59)
[2021-06-04] MEDS ORDERED: diazePAM 5 MG TABLET PO ONE (18:59)
[2021-06-04] MEDS: BACITRACIN 0.9 GM PACKET TP SCH (21:56)
[2021-06-04] MEDS: diazePAM 5 MG TABLET PO PRN (21:57)
[2021-06-04] MEDS: THIAMINE HCL 100 MG TABLET (FP) PO SCH (21:58)
[2021-06-04] MEDS: MELATONIN 5 MG TABLETS PO SCH (21:58)
[2021-06-04] MEDS: SULFAMETHOXAZOLE/TRIMETHOPRIM 800MG/160MG D.S. TABLET PO SCH (21:58)
[2021-06-04] MEDS: IBUPROFEN 400 MG TABLET (FP) PO PRN (22:02)
[2021-06-04] MEDS ORDERED: methaDONE HCL 10 MG TABLET (FOR DETOX USE ONLY) PO ONE (23:00)
[2021-06-04] MEDS: diazePAM 5 MG TABLET PO SCH (23:09)
[2021-06-05] MEDS: diazePAM 5 MG TABLET PO SCH ×4 (06:04→22:14)
[2021-06-05] MEDS ORDERED: methaDONE HCL 10 MG TABLET (FOR DETOX USE ONLY) ONE (08:53)
[2021-06-05] MEDS ORDERED: methaDONE HCL 10 MG TABLET (FOR DETOX USE ONLY) PO ONE (10:00)
[2021-06-05] MEDS: PRENATAL VITAMINS W/ FOLIC ACID TABLET (FP) PO SCH (10:37)
[2021-06-05] MEDS: BACITRACIN 0.9 GM PACKET TP SCH ×2 (10:39→22:13)
[2021-06-05] MEDS: SULFAMETHOXAZOLE/TRIMETHOPRIM 800MG/160MG D.S. TABLET PO SCH (10:39)
[2021-06-05 10:53] LABS: HEMATOCRIT 37.6 % (32.4-45.2); HEMOGLOBIN 12.7 GM/dL (10.7-15.3); MCH 28.2 pg (25.7-33.7); MCHC 33.7 g/dl (32.0-36.0); MEAN CELL VOLUME 83.7 fl (80-96); MEAN PLT VOLUME 8.4 fl (7.5-11.1); PLATELET COUNT 241 10^3/uL (134-434); RBC 4.49 M/mm3 (3.60-5.2); RDW 13.7 % (11.6-15.6); WHITE BLOOD COUNT 4.9 K/mm3 (4.0-10.0)
[2021-06-05 10:59] LABS: ALBUMIN 3.4 g/dl (3.4-5.0); CALCIUM 8.5 mg/dL (8.5-10.1)
[2021-06-05 11:01] LABS: BLOOD UREA NITROGEN 17.9 mg/dL (7-18)
[2021-06-05 11:03] LABS: CREATININE 0.7 mg/dL (0.55-1.3)
[2021-06-05 11:04] LABS: BILIRUBIN,TOTAL 0.4 mg/dL (0.2-1); TOT PROT 6.9 g/dl (6.4-8.2)
[2021-06-05] MEDS: lamoTRIgine 25 MG TABLET PO SCH (11:09)
[2021-06-05] MEDS: GABAPENTIN 100 MG CAPSULE PO SCH ×2 (11:09→22:14)
[2021-06-05 11:42] LABS: HIV INTERPRETATION NEGATIVE (NEGATIVE)
[2021-06-05] MEDS: diazePAM 5 MG TABLET PO PRN (14:09)
[2021-06-05] MEDS: LURASIDONE HCL 20 MG TABLET PO SCH (17:47)
[2021-06-05] MEDS: traZODone HCL 50 MG TABLET (FP) PO SCH (22:14)
[2021-06-05] MEDS: THIAMINE HCL 100 MG TABLET (FP) PO SCH (22:14)
[2021-06-05] MEDS: MELATONIN 5 MG TABLETS PO SCH (22:14)
[2021-06-06] MEDS: diazePAM 5 MG TABLET PO SCH ×3 (07:04→22:09)
[2021-06-06] MEDS: PRENATAL VITAMINS W/ FOLIC ACID TABLET (FP) PO SCH (09:51)
[2021-06-06] MEDS: SULFAMETHOXAZOLE/TRIMETHOPRIM 800MG/160MG D.S. TABLET PO SCH (09:52)
[2021-06-06] MEDS: GABAPENTIN 100 MG CAPSULE PO SCH ×2 (09:52→22:09)
[2021-06-06] MEDS: BACITRACIN 0.9 GM PACKET TP SCH ×2 (09:52→22:09)
[2021-06-06] MEDS: lamoTRIgine 25 MG TABLET PO SCH (09:52)
[2021-06-06] MEDS: diazePAM 5 MG TABLET PO PRN ×2 (09:53→17:49)
[2021-06-06] MEDS ORDERED: methaDONE HCL 10 MG TABLET (FOR DETOX USE ONLY) PO ONE (10:00)
[2021-06-06] MEDS: LURASIDONE HCL 20 MG TABLET PO SCH (17:48)
[2021-06-06] MEDS: THIAMINE HCL 100 MG TABLET (FP) PO SCH (22:09)
[2021-06-06] MEDS: MELATONIN 5 MG TABLETS PO SCH (22:09)
[2021-06-06] MEDS: traZODone HCL 50 MG TABLET (FP) PO SCH (22:09)
[2021-06-07] MEDS: diazePAM 5 MG TABLET PO SCH ×2 (06:00→18:07)
[2021-06-07] MEDS: SULFAMETHOXAZOLE/TRIMETHOPRIM 800MG/160MG D.S. TABLET PO SCH (10:32)
[2021-06-07] MEDS: PRENATAL VITAMINS W/ FOLIC ACID TABLET (FP) PO SCH (10:32)
[2021-06-07] MEDS: GABAPENTIN 100 MG CAPSULE PO SCH ×2 (10:32→22:25)
[2021-06-07] MEDS: BACITRACIN 0.9 GM PACKET TP SCH ×2 (10:32→22:24)
[2021-06-07] MEDS: lamoTRIgine 25 MG TABLET PO SCH (10:33)
[2021-06-07] MEDS: diazePAM 5 MG TABLET PO PRN ×2 (10:35→14:56)
[2021-06-07] MEDS ORDERED: MASKS NR ONE ×2 (12:19→12:20)
[2021-06-07 15:49] LABS: EPI CELLS >36 /uL (0-25.1); HYALINE CASTS 4 /uL (0-3.1); URINE APPEARANCE TURBID; URINE BACTERIA 1004 /uL (0-1359); URINE BILIRUBIN NEGATIVE (NEGATIVE); URINE COLOR YELLOW; URINE GLUCOSE (UA) NEGATIVE (NEGATIVE); URINE KETONE NEGATIVE (NEGATIVE); URINE LEUK ESTERASE 1+ (NEGATIVE); URINE NITRITE NEGATIVE (NEGATIVE); URINE PROTEIN NEGATIVE (NEGATIVE); URINE RBC 15 /uL (0-23.9); URINE UROBILINOGEN 0.2 mg/dL (0.2-1.0); URINE WBC 61 /uL (0-25.8)
[2021-06-07] MEDS: LURASIDONE HCL 20 MG TABLET PO SCH (18:07)
[2021-06-07] MEDS: THIAMINE HCL 100 MG TABLET (FP) PO SCH (22:25)
[2021-06-07] MEDS: traZODone HCL 50 MG TABLET (FP) PO SCH (22:25)
[2021-06-07] MEDS: MELATONIN 5 MG TABLETS PO SCH (22:25)
[2021-06-07] MEDS: IBUPROFEN 400 MG TABLET (FP) PO PRN (22:51)
[2021-06-08] MEDS ORDERED: diazePAM 5 MG TABLET PO ONE (06:00)
[2021-06-08 08:48] VITALS: PULSE 71; TEMP 98.2
[2021-06-08 08:50] VITALS: BP 103/61
[2021-06-08] MEDS: BACITRACIN 0.9 GM PACKET TP SCH (09:15)
[2021-06-08] MEDS: lamoTRIgine 25 MG TABLET PO SCH (09:15)
[2021-06-08] MEDS: PRENATAL VITAMINS W/ FOLIC ACID TABLET (FP) PO SCH (09:15)
[2021-06-08] MEDS: GABAPENTIN 100 MG CAPSULE PO SCH (09:15)
[2021-06-08] MEDS: SULFAMETHOXAZOLE/TRIMETHOPRIM 800MG/160MG D.S. TABLET PO SCH (09:15)
[2021-06-09 14:07] LABS: SARS-CoV-2 NAA Detected (Not Detected)
== END 2021-06-08 09:23 | disposition other institution (70) | DRG 773 ==
LOC: YASAS 15:06 → Y3N 20:44
PROVIDERS: ADMIT Allergy & Immunology; ATTEND Allergy & Immunology
PROC: HZ2ZZZZ Detoxification Services for Substance Abuse Treatment (ICD-10-PCS; principal; 2021-06-04)
DX: F11.23 Opioid dependence with withdrawal (principal); F10.20 Alcohol dependence, uncomplicated; F14.20 Cocaine dependence, uncomplicated; F13.20 Sedative, hypnotic or anxiolytic dependence, uncomplicated; F17.210 Nicotine dependence, cigarettes, uncomplicated; F19.282 Other psychoactive substance dependence with psychoactive substance-induced sleep disorder; F19.280 Other psychoactive substance dependence with psychoactive substance-induced anxiety disorder; F31.9 Bipolar disorder, unspecified; F41.9 Anxiety disorder, unspecified; U07.1 COVID-19; N39.0 Urinary tract infection, site not specified; Z87.09 Personal history of other diseases of the respiratory system; Z88.0 Allergy status to penicillin; Z88.8 Allergy status to other drugs, medicaments and biological substances
CPT/HCPCS: 36415; 80053; 81003; 81025; 85027; 86780; 87389; C9803; U0003; U0005

== ENCOUNTER 2021-06-19 11:40 | Inpatient (IN) | payer OTHER ==
[2021-06-19 12:49] VITALS: BMI 33.3
[2021-06-19] MEDS ORDERED: MAGNESIUM HYDROX 2400MG/30ML ORAL SUSPENSION 30 ML CUP PO PRN (14:41)
[2021-06-19] MEDS ORDERED: MAG HYDROX/AL HYDROX/SIMETH 30 ML UNIT-DOSE CUP PO PRN (14:41)
[2021-06-19] MEDS ORDERED: guaiFENesin 200 MG/10 ML 10 ML UNIT-DOSE CUPS PO PRN (14:41)
[2021-06-19] MEDS ORDERED: MAGNESIUM CITRATE 300 ML BOTTLE PO PRN (14:41)
[2021-06-19] MEDS ORDERED: P-EPHED 60MG/TRIPROLIDI 2.5MG TABLET PO PRN (14:41)
[2021-06-19] MEDS ORDERED: ALBUTEROL SO4 HFA INHALER IH PRN (14:44)
[2021-06-19 17:33] LABS: ALBUMIN 3.9 g/dl (3.4-5.0); BLOOD UREA NITROGEN 21.9 mg/dL (7-18)
[2021-06-19 17:36] LABS: HEMATOCRIT 38.7 % (32.4-45.2); HEMOGLOBIN 12.9 GM/dL (10.7-15.3); MCH 27.9 pg (25.7-33.7); MCHC 33.4 g/dl (32.0-36.0); MEAN CELL VOLUME 83.3 fl (80-96); PLATELET COUNT 325 10^3/uL (134-434); RBC 4.65 M/mm3 (3.60-5.2); RDW 13.7 % (11.6-15.6); WHITE BLOOD COUNT 8.4 K/mm3 (4.0-10.0)
[2021-06-19 17:37] LABS: CREATININE 0.7 mg/dL (0.55-1.3)
[2021-06-19 17:38] LABS: BILIRUBIN,TOTAL 0.3 mg/dL (0.2-1); TOT PROT 7.7 g/dl (6.4-8.2)
[2021-06-19 18:00] LABS: SYPHILIS W/ RPR CONF NON-REACTIVE (NONREACTIVE)
[2021-06-19 18:31] LABS: HIV INTERPRETATION NEGATIVE (NEGATIVE)
[2021-06-19] MEDS: hydrOXYzine PAMOATE 25 MG CAPSULE (FP) PO SCH ×2 (18:50→21:20)
[2021-06-19] MEDS: MELATONIN 5 MG TABLETS PO SCH (21:19)
[2021-06-19] MEDS: PATIENT'S OWN MEDICATION (NON-FORMULARY) (Nitrofurantoin Monohyd/M-Cryst [Nitrofurantoin M PO SCH (21:20)
[2021-06-19] MEDS: THIAMINE HCL 100 MG TABLET (FP) PO SCH (21:20)
[2021-06-19] MEDS: IBUPROFEN 400 MG TABLET (FP) PO PRN (21:21)
[2021-06-20] MEDS: hydrOXYzine PAMOATE 25 MG CAPSULE (FP) PO SCH ×5 (06:44→22:00)
[2021-06-20] MEDS: PRENATAL VITAMINS W/ FOLIC ACID TABLET (FP) PO SCH (10:02)
[2021-06-20] MEDS: PATIENT'S OWN MEDICATION (NON-FORMULARY) (Nitrofurantoin Monohyd/M-Cryst [Nitrofurantoin M PO SCH ×2 (10:04→21:58)
[2021-06-20] MEDS: NICOTINE 10 MG CARTRIDGE (INHALER) IH PRN (10:05)
[2021-06-20] MEDS: lamoTRIgine 25 MG TABLET PO SCH (11:50)
[2021-06-20] MEDS: cloNIDine HCL 0.1 MG TABLET PO PRN ×2 (13:28→21:30)
[2021-06-20] MEDS: GABAPENTIN 100 MG CAPSULE PO SCH ×2 (14:27→21:24)
[2021-06-20 15:08] LABS: EPI CELLS >36 /uL (0-25.1); HYALINE CASTS 0 /uL (0-3.1); URINE APPEARANCE CLEAR; URINE BACTERIA 472 /uL (0-1359); URINE BILIRUBIN NEGATIVE (NEGATIVE); URINE COLOR YELLOW; URINE GLUCOSE (UA) NEGATIVE (NEGATIVE); URINE KETONE NEGATIVE (NEGATIVE); URINE LEUK ESTERASE TRACE (NEGATIVE); URINE NITRITE NEGATIVE (NEGATIVE); URINE PROTEIN NEGATIVE (NEGATIVE); URINE RBC 2 /uL (0-23.9); URINE UROBILINOGEN 0.2 mg/dL (0.2-1.0); URINE WBC 39 /uL (0-25.8)
[2021-06-20] MEDS: THIAMINE HCL 100 MG TABLET (FP) PO SCH (21:30)
[2021-06-20] MEDS: traZODone HCL 50 MG TABLET (FP) PO SCH (21:31)
[2021-06-20] MEDS: MELATONIN 5 MG TABLETS PO SCH (21:32)
[2021-06-20] MEDS: LURASIDONE HCL 20 MG TABLET PO SCH (21:32)
[2021-06-21] MEDS: GABAPENTIN 100 MG CAPSULE PO SCH ×3 (06:12→21:54)
[2021-06-21] MEDS: hydrOXYzine PAMOATE 25 MG CAPSULE (FP) PO SCH ×6 (06:12→21:57)
[2021-06-21] MEDS ORDERED: BUPRENORPHINE/NALOXONE 2 MG/0.5 MG FILM PACKET SL ONE ×3 (09:07→19:30)
[2021-06-21] MEDS: PRENATAL VITAMINS W/ FOLIC ACID TABLET (FP) PO SCH (10:08)
[2021-06-21] MEDS: lamoTRIgine 25 MG TABLET PO SCH (10:08)
[2021-06-21] MEDS: PATIENT'S OWN MEDICATION (NON-FORMULARY) (Nitrofurantoin Monohyd/M-Cryst [Nitrofurantoin M PO SCH ×2 (10:09→21:57)
[2021-06-21] MEDS: NICOTINE POLACRILEX 2 MG GUM BUC PRN ×3 (10:10→21:58)
[2021-06-21] MEDS: cloNIDine HCL 0.1 MG TABLET PO PRN ×2 (11:29→19:03)
[2021-06-21] MEDS: IBUPROFEN 400 MG TABLET (FP) PO PRN (19:04)
[2021-06-21] MEDS: BUPRENORPHINE/NALOXONE 4 MG/1 MG FILM PACKET SL SCH (19:38)
[2021-06-21] MEDS: traZODone HCL 50 MG TABLET (FP) PO SCH (21:55)
[2021-06-21] MEDS: LURASIDONE HCL 20 MG TABLET PO SCH (21:55)
[2021-06-21] MEDS: THIAMINE HCL 100 MG TABLET (FP) PO SCH (21:57)
[2021-06-21] MEDS: MELATONIN 5 MG TABLETS PO SCH (23:47)
[2021-06-22] MEDS: BUPRENORPHINE/NALOXONE 4 MG/1 MG FILM PACKET SL SCH ×2 (06:20→17:54)
[2021-06-22] MEDS: GABAPENTIN 100 MG CAPSULE PO SCH ×3 (06:21→21:16)
[2021-06-22] MEDS: hydrOXYzine PAMOATE 25 MG CAPSULE (FP) PO SCH ×5 (06:21→21:17)
[2021-06-22] MEDS: lamoTRIgine 25 MG TABLET PO SCH (10:51)
[2021-06-22] MEDS: PATIENT'S OWN MEDICATION (NON-FORMULARY) (Nitrofurantoin Monohyd/M-Cryst [Nitrofurantoin M PO SCH ×2 (10:51→21:18)
[2021-06-22] MEDS: PRENATAL VITAMINS W/ FOLIC ACID TABLET (FP) PO SCH (10:51)
[2021-06-22] MEDS: NICOTINE 10 MG CARTRIDGE (INHALER) IH PRN (10:52)
[2021-06-22] MEDS: NICOTINE POLACRILEX 2 MG GUM BUC PRN ×2 (10:53→14:01)
[2021-06-22] MEDS ORDERED: HYDROCORTISONE 1% TOPICAL CREAM 30 GM TUBE TP PRN (13:05)
[2021-06-22] MEDS: ACETAMINOPHEN 325 MG TABLET (FP) PO PRN ×2 (13:58→21:19)
[2021-06-22] MEDS ORDERED: BENZOYL PEROXIDE 5% 60 GM GEL..GRAM. TP ONE (14:34)
[2021-06-22] MEDS: TOLNAFTATE 1% CREAM 15 GM TUBE TP SCH ×2 (16:24→21:16)
[2021-06-22] MEDS: THIAMINE HCL 100 MG TABLET (FP) PO SCH (21:15)
[2021-06-22] MEDS: LURASIDONE HCL 20 MG TABLET PO SCH (21:15)
[2021-06-22] MEDS: MELATONIN 5 MG TABLETS PO SCH (21:16)
[2021-06-22] MEDS: traZODone HCL 50 MG TABLET (FP) PO SCH (21:16)
[2021-06-23] MEDS: BUPRENORPHINE/NALOXONE 4 MG/1 MG FILM PACKET SL SCH ×2 (06:45→17:21)
[2021-06-23] MEDS: hydrOXYzine PAMOATE 25 MG CAPSULE (FP) PO SCH ×5 (06:45→22:01)
[2021-06-23] MEDS: GABAPENTIN 100 MG CAPSULE PO SCH ×3 (06:45→21:59)
[2021-06-23] MEDS ORDERED: LURASIDONE HCL 20 MG TABLET PO SCH (08:09)
[2021-06-23] MEDS: PRENATAL VITAMINS W/ FOLIC ACID TABLET (FP) PO SCH (10:51)
[2021-06-23] MEDS: PATIENT'S OWN MEDICATION (NON-FORMULARY) (Nitrofurantoin Monohyd/M-Cryst [Nitrofurantoin M PO SCH ×2 (10:52→22:12)
[2021-06-23] MEDS: BENZOYL PEROXIDE 5% 60 GM GEL..GRAM. TP SCH (10:53)
[2021-06-23] MEDS: NICOTINE POLACRILEX 2 MG GUM BUC PRN ×2 (10:54→20:19)
[2021-06-23] MEDS: NICOTINE 10 MG CARTRIDGE (INHALER) IH PRN (10:54)
[2021-06-23] MEDS: TOLNAFTATE 1% CREAM 15 GM TUBE TP SCH ×2 (10:55→22:01)
[2021-06-23] MEDS: lamoTRIgine 25 MG TABLET PO SCH (11:33)
[2021-06-23] MEDS: ACETAMINOPHEN 325 MG TABLET (FP) PO PRN (11:35)
[2021-06-23] MEDS ORDERED: NITROFURANTOIN MACROCRYSTAL 50 MG CAPSULE (FP) PO SCH (20:15)
[2021-06-23] MEDS: traZODone HCL 50 MG TABLET (FP) PO SCH (21:59)
[2021-06-23] MEDS: cloNIDine HCL 0.1 MG TABLET PO PRN (22:00)
[2021-06-23] MEDS: THIAMINE HCL 100 MG TABLET (FP) PO SCH (22:01)
[2021-06-23] MEDS ORDERED: PT OWN MED DRAWER 7, Y5N ONE (22:11)
[2021-06-24] MEDS: GABAPENTIN 100 MG CAPSULE PO SCH ×3 (06:31→21:06)
[2021-06-24] MEDS: BUPRENORPHINE/NALOXONE 4 MG/1 MG FILM PACKET SL SCH ×2 (06:31→17:52)
[2021-06-24] MEDS: hydrOXYzine PAMOATE 25 MG CAPSULE (FP) PO SCH ×5 (06:32→21:12)
[2021-06-24] MEDS: BENZOYL PEROXIDE 5% 60 GM GEL..GRAM. TP SCH (10:26)
[2021-06-24] MEDS: TOLNAFTATE 1% CREAM 15 GM TUBE TP SCH ×2 (10:26→21:12)
[2021-06-24] MEDS: lamoTRIgine 25 MG TABLET PO SCH (10:26)
[2021-06-24] MEDS: PRENATAL VITAMINS W/ FOLIC ACID TABLET (FP) PO SCH (10:27)
[2021-06-24] MEDS: NICOTINE 10 MG CARTRIDGE (INHALER) IH PRN (10:28)
[2021-06-24] MEDS ORDERED: LURASIDONE HCL 20 MG TABLET PO SCH ×2 (12:00→17:00)
[2021-06-24] MEDS ORDERED: PT OWN MED DRAWER 7, Y5N ONE ×3 (14:11→19:46)
[2021-06-24] MEDS: ACETAMINOPHEN 325 MG TABLET (FP) PO PRN (17:52)
[2021-06-24] MEDS: LURASIDONE HCL 40 MG TABLET PO SCH (17:57)
[2021-06-24] MEDS: THIAMINE HCL 100 MG TABLET (FP) PO SCH (21:05)
[2021-06-24] MEDS: traZODone HCL 50 MG TABLET (FP) PO SCH (21:06)
[2021-06-24] MEDS: NICOTINE POLACRILEX 2 MG GUM BUC PRN (21:15)
[2021-06-25] MEDS: GABAPENTIN 100 MG CAPSULE PO SCH ×3 (06:25→21:45)
[2021-06-25] MEDS: hydrOXYzine PAMOATE 25 MG CAPSULE (FP) PO SCH ×2 (06:25→10:09)
[2021-06-25] MEDS: BUPRENORPHINE/NALOXONE 4 MG/1 MG FILM PACKET SL SCH ×2 (06:26→18:10)
[2021-06-25] MEDS: NICOTINE 10 MG CARTRIDGE (INHALER) IH PRN ×2 (09:15→21:46)
[2021-06-25] MEDS: lamoTRIgine 25 MG TABLET PO SCH (10:09)
[2021-06-25] MEDS: BENZOYL PEROXIDE 5% 60 GM GEL..GRAM. TP SCH (10:09)
[2021-06-25] MEDS: PRENATAL VITAMINS W/ FOLIC ACID TABLET (FP) PO SCH (10:09)
[2021-06-25] MEDS: TOLNAFTATE 1% CREAM 15 GM TUBE TP SCH ×2 (10:09→23:48)
[2021-06-25] MEDS: NICOTINE POLACRILEX 2 MG GUM BUC PRN (10:10)
[2021-06-25] MEDS ORDERED: hydrOXYzine PAMOATE 25 MG CAPSULE (FP) PO PRN (12:32)
[2021-06-25] MEDS: LURASIDONE HCL 40 MG TABLET PO SCH (18:07)
[2021-06-25] MEDS ORDERED: PT OWN MED DRAWER 7, Y5N ONE (18:07)
[2021-06-25] MEDS: ACETAMINOPHEN 325 MG TABLET (FP) PO PRN (18:09)
[2021-06-25] MEDS: THIAMINE HCL 100 MG TABLET (FP) PO SCH (21:44)
[2021-06-25] MEDS: traZODone HCL 50 MG TABLET (FP) PO SCH (21:44)
[2021-06-26] MEDS ORDERED: PT OWN MED DRAWER 7, Y5N ONE ×2 (03:16→09:00)
[2021-06-26] MEDS: GABAPENTIN 100 MG CAPSULE PO SCH ×3 (06:18→22:02)
[2021-06-26] MEDS: LOPERAMIDE HCL 2 MG CAPSULE PO PRN (06:19)
[2021-06-26] MEDS: BENZOYL PEROXIDE 5% 60 GM GEL..GRAM. TP SCH (10:44)
[2021-06-26] MEDS: PRENATAL VITAMINS W/ FOLIC ACID TABLET (FP) PO SCH (10:46)
[2021-06-26] MEDS: lamoTRIgine 25 MG TABLET PO SCH ×2 (10:46→22:02)
[2021-06-26] MEDS: BUPRENORPHINE/NALOXONE 4 MG/1 MG FILM PACKET SL SCH (10:47)
[2021-06-26] MEDS: TOLNAFTATE 1% CREAM 15 GM TUBE TP SCH ×2 (10:47→22:03)
[2021-06-26] MEDS: NICOTINE 10 MG CARTRIDGE (INHALER) IH PRN ×2 (11:08→20:49)
[2021-06-26] MEDS: FLUoxetine HCL 10 MG TABLET PO SCH (12:06)
[2021-06-26] MEDS: LURASIDONE HCL 40 MG TABLET PO SCH (17:29)
[2021-06-26] MEDS: NICOTINE POLACRILEX 2 MG GUM BUC PRN (17:47)
[2021-06-26] MEDS: cloNIDine HCL 0.1 MG TABLET PO PRN (22:01)
[2021-06-26] MEDS: traZODone HCL 50 MG TABLET (FP) PO SCH (22:01)
[2021-06-26] MEDS: THIAMINE HCL 100 MG TABLET (FP) PO SCH (22:02)
[2021-06-27] MEDS: GABAPENTIN 100 MG CAPSULE PO SCH ×3 (06:22→22:29)
[2021-06-27] MEDS: LOPERAMIDE HCL 2 MG CAPSULE PO PRN (06:23)
[2021-06-27] MEDS: BUPRENORPHINE/NALOXONE 4 MG/1 MG FILM PACKET SL SCH (09:40)
[2021-06-27] MEDS: lamoTRIgine 25 MG TABLET PO SCH ×2 (09:41→22:30)
[2021-06-27] MEDS: FLUoxetine HCL 10 MG TABLET PO SCH (09:41)
[2021-06-27] MEDS: TOLNAFTATE 1% CREAM 15 GM TUBE TP SCH ×2 (09:42→22:32)
[2021-06-27] MEDS: BENZOYL PEROXIDE 5% 60 GM GEL..GRAM. TP SCH (09:42)
[2021-06-27] MEDS: PRENATAL VITAMINS W/ FOLIC ACID TABLET (FP) PO SCH (09:42)
[2021-06-27] MEDS: NICOTINE POLACRILEX 2 MG GUM BUC PRN (13:40)
[2021-06-27] MEDS ORDERED: BISMUTH SUBSALICYLATE 262 MG/15 ML BTL PO PRN (14:48)
[2021-06-27] MEDS: NICOTINE 10 MG CARTRIDGE (INHALER) IH PRN ×2 (17:17→22:31)
[2021-06-27] MEDS: cloNIDine HCL 0.1 MG TABLET PO PRN (22:29)
[2021-06-27] MEDS: THIAMINE HCL 100 MG TABLET (FP) PO SCH (22:30)
[2021-06-27] MEDS: traZODone HCL 50 MG TABLET (FP) PO SCH (22:30)
[2021-06-27] MEDS: LURASIDONE HCL 40 MG TABLET PO SCH (22:30)
[2021-06-28] MEDS: GABAPENTIN 100 MG CAPSULE PO SCH ×3 (06:28→21:47)
[2021-06-28] MEDS: PRENATAL VITAMINS W/ FOLIC ACID TABLET (FP) PO SCH (10:38)
[2021-06-28] MEDS: BENZOYL PEROXIDE 5% 60 GM GEL..GRAM. TP SCH (10:39)
[2021-06-28] MEDS: lamoTRIgine 25 MG TABLET PO SCH ×2 (10:39→21:51)
[2021-06-28] MEDS: FLUoxetine HCL 10 MG TABLET PO SCH (10:41)
[2021-06-28] MEDS: BUPRENORPHINE/NALOXONE 4 MG/1 MG FILM PACKET SL SCH (10:41)
[2021-06-28] MEDS: NICOTINE 10 MG CARTRIDGE (INHALER) IH PRN ×2 (10:42→21:51)
[2021-06-28] MEDS: TOLNAFTATE 1% CREAM 15 GM TUBE TP SCH ×2 (10:42→21:48)
[2021-06-28] MEDS: NICOTINE POLACRILEX 2 MG GUM BUC PRN (14:06)
[2021-06-28] MEDS: THIAMINE HCL 100 MG TABLET (FP) PO SCH (21:48)
[2021-06-28] MEDS: cloNIDine HCL 0.1 MG TABLET PO PRN (21:48)
[2021-06-28] MEDS ORDERED: PT OWN MED DRAWER 7, Y5N ONE (21:51)
[2021-06-28] MEDS: traZODone HCL 50 MG TABLET (FP) PO SCH (21:51)
[2021-06-28] MEDS: LURASIDONE HCL 40 MG TABLET PO SCH (21:51)
[2021-06-29] MEDS: GABAPENTIN 100 MG CAPSULE PO SCH ×3 (06:49→21:43)
[2021-06-29] MEDS: NICOTINE 10 MG CARTRIDGE (INHALER) IH PRN ×3 (09:00→20:51)
[2021-06-29] MEDS: FLUoxetine HCL 10 MG TABLET PO SCH (10:08)
[2021-06-29] MEDS: BUPRENORPHINE/NALOXONE 4 MG/1 MG FILM PACKET SL SCH (10:08)
[2021-06-29] MEDS: PRENATAL VITAMINS W/ FOLIC ACID TABLET (FP) PO SCH (10:08)
[2021-06-29] MEDS: TOLNAFTATE 1% CREAM 15 GM TUBE TP SCH ×2 (10:09→21:44)
[2021-06-29] MEDS: BENZOYL PEROXIDE 5% 60 GM GEL..GRAM. TP SCH (10:09)
[2021-06-29] MEDS: lamoTRIgine 25 MG TABLET PO SCH ×2 (10:09→21:43)
[2021-06-29] MEDS: NICOTINE POLACRILEX 2 MG GUM BUC PRN (14:04)
[2021-06-29] MEDS ORDERED: PT OWN MED DRAWER 7, Y5N ONE ×2 (20:31→20:50)
[2021-06-29] MEDS: LURASIDONE HCL 40 MG TABLET PO SCH (20:50)
[2021-06-29] MEDS: traZODone HCL 50 MG TABLET (FP) PO SCH (21:43)
[2021-06-29] MEDS: cloNIDine HCL 0.1 MG TABLET PO PRN (21:43)
[2021-06-29] MEDS: THIAMINE HCL 100 MG TABLET (FP) PO SCH (21:44)
[2021-06-30] MEDS: GABAPENTIN 100 MG CAPSULE PO SCH ×3 (06:46→21:59)
[2021-06-30] MEDS: NICOTINE 10 MG CARTRIDGE (INHALER) IH PRN ×3 (08:42→20:53)
[2021-06-30] MEDS: BUPRENORPHINE/NALOXONE 4 MG/1 MG FILM PACKET SL SCH (10:33)
[2021-06-30] MEDS: PRENATAL VITAMINS W/ FOLIC ACID TABLET (FP) PO SCH (10:33)
[2021-06-30] MEDS: TOLNAFTATE 1% CREAM 15 GM TUBE TP SCH ×2 (10:33→21:59)
[2021-06-30] MEDS: FLUoxetine HCL 10 MG TABLET PO SCH (10:34)
[2021-06-30] MEDS: lamoTRIgine 25 MG TABLET PO SCH ×2 (10:34→21:58)
[2021-06-30] MEDS: NICOTINE POLACRILEX 2 MG GUM BUC PRN (13:55)
[2021-06-30] MEDS: LURASIDONE HCL 40 MG TABLET PO SCH (20:53)
[2021-06-30] MEDS: traZODone HCL 50 MG TABLET (FP) PO SCH (21:59)
[2021-06-30] MEDS: THIAMINE HCL 100 MG TABLET (FP) PO SCH (21:59)
[2021-06-30] MEDS: cloNIDine HCL 0.1 MG TABLET PO PRN (22:00)
[2021-07-01] MEDS ORDERED: PT OWN MED DRAWER 7, Y5N ONE ×5 (03:18→23:46)
[2021-07-01] MEDS: GABAPENTIN 100 MG CAPSULE PO SCH ×3 (06:40→21:46)
[2021-07-01] MEDS: PRENATAL VITAMINS W/ FOLIC ACID TABLET (FP) PO SCH (10:11)
[2021-07-01] MEDS: TOLNAFTATE 1% CREAM 15 GM TUBE TP SCH ×2 (10:11→23:39)
[2021-07-01] MEDS: BUPRENORPHINE/NALOXONE 4 MG/1 MG FILM PACKET SL SCH (10:11)
[2021-07-01] MEDS: lamoTRIgine 25 MG TABLET PO SCH ×2 (10:11→21:46)
[2021-07-01] MEDS: FLUoxetine HCL 10 MG TABLET PO SCH (10:14)
[2021-07-01] MEDS: NICOTINE 10 MG CARTRIDGE (INHALER) IH PRN ×2 (11:16→19:19)
[2021-07-01] MEDS: THIAMINE HCL 100 MG TABLET (FP) PO SCH (21:46)
[2021-07-01] MEDS: traZODone HCL 50 MG TABLET (FP) PO SCH (21:46)
[2021-07-01] MEDS: LURASIDONE HCL 40 MG TABLET PO SCH (21:47)
[2021-07-01] MEDS: cloNIDine HCL 0.1 MG TABLET PO PRN (21:50)
[2021-07-02] MEDS: GABAPENTIN 100 MG CAPSULE PO SCH ×3 (07:02→21:43)
[2021-07-02] MEDS: PRENATAL VITAMINS W/ FOLIC ACID TABLET (FP) PO SCH (09:51)
[2021-07-02] MEDS: lamoTRIgine 25 MG TABLET PO SCH ×2 (09:52→21:44)
[2021-07-02] MEDS: FLUoxetine HCL 10 MG TABLET PO SCH (09:52)
[2021-07-02] MEDS: BUPRENORPHINE/NALOXONE 4 MG/1 MG FILM PACKET SL SCH (09:52)
[2021-07-02] MEDS: TOLNAFTATE 1% CREAM 15 GM TUBE TP SCH ×2 (09:53→23:26)
[2021-07-02] MEDS: NICOTINE 10 MG CARTRIDGE (INHALER) IH PRN ×3 (09:53→21:46)
[2021-07-02] MEDS ORDERED: COLLOIDAL OATMEAL 1 BAR EACH TP PRN (10:13)
[2021-07-02] MEDS ORDERED: PT OWN MED DRAWER 7, Y5N ONE (20:52)
[2021-07-02] MEDS: traZODone HCL 50 MG TABLET (FP) PO SCH (21:43)
[2021-07-02] MEDS: cloNIDine HCL 0.1 MG TABLET PO PRN (21:43)
[2021-07-02] MEDS: LURASIDONE HCL 40 MG TABLET PO SCH (21:44)
[2021-07-02] MEDS: THIAMINE HCL 100 MG TABLET (FP) PO SCH (23:26)
[2021-07-03] MEDS: GABAPENTIN 100 MG CAPSULE PO SCH ×3 (07:44→21:45)
[2021-07-03] MEDS: lamoTRIgine 25 MG TABLET PO SCH ×2 (10:13→21:47)
[2021-07-03] MEDS: BUPRENORPHINE/NALOXONE 4 MG/1 MG FILM PACKET SL SCH (10:13)
[2021-07-03] MEDS: PRENATAL VITAMINS W/ FOLIC ACID TABLET (FP) PO SCH (10:13)
[2021-07-03] MEDS: TOLNAFTATE 1% CREAM 15 GM TUBE TP SCH ×2 (10:13→21:45)
[2021-07-03] MEDS: FLUoxetine HCL 10 MG TABLET PO SCH (10:13)
[2021-07-03] MEDS: ACETAMINOPHEN 325 MG TABLET (FP) PO PRN (10:14)
[2021-07-03] MEDS: NICOTINE 10 MG CARTRIDGE (INHALER) IH PRN ×3 (10:14→21:48)
[2021-07-03] MEDS: DOCUSATE SODIUM 100 MG CAPSULE (FP) PO SCH ×2 (13:29→21:45)
[2021-07-03] MEDS: NICOTINE POLACRILEX 2 MG GUM BUC PRN (13:30)
[2021-07-03 21:03] VITALS: TEMP 96
[2021-07-03] MEDS: cloNIDine HCL 0.1 MG TABLET PO PRN (21:45)
[2021-07-03] MEDS: LURASIDONE HCL 40 MG TABLET PO SCH (21:45)
[2021-07-03] MEDS: traZODone HCL 50 MG TABLET (FP) PO SCH (21:45)
[2021-07-03] MEDS: THIAMINE HCL 100 MG TABLET (FP) PO SCH (21:45)
[2021-07-04] MEDS: GABAPENTIN 100 MG CAPSULE PO SCH ×3 (08:06→21:14)
[2021-07-04] MEDS: lamoTRIgine 25 MG TABLET PO SCH ×2 (10:09→21:17)
[2021-07-04] MEDS: DOCUSATE SODIUM 100 MG CAPSULE (FP) PO SCH ×2 (10:09→21:15)
[2021-07-04] MEDS: BUPRENORPHINE/NALOXONE 4 MG/1 MG FILM PACKET SL SCH (10:10)
[2021-07-04] MEDS: PRENATAL VITAMINS W/ FOLIC ACID TABLET (FP) PO SCH (10:10)
[2021-07-04] MEDS: TOLNAFTATE 1% CREAM 15 GM TUBE TP SCH ×2 (10:13→21:15)
[2021-07-04] MEDS: NICOTINE 10 MG CARTRIDGE (INHALER) IH PRN ×2 (10:14→17:30)
[2021-07-04] MEDS: FLUoxetine HCL 10 MG TABLET PO SCH (10:20)
[2021-07-04] MEDS: NICOTINE POLACRILEX 2 MG GUM BUC PRN (17:30)
[2021-07-04] MEDS ORDERED: PT OWN MED DRAWER 7, Y5N ONE ×2 (20:29→21:17)
[2021-07-04] MEDS: LURASIDONE HCL 40 MG TABLET PO SCH (20:32)
[2021-07-04] MEDS: traZODone HCL 50 MG TABLET (FP) PO SCH (21:14)
[2021-07-04] MEDS: THIAMINE HCL 100 MG TABLET (FP) PO SCH (21:14)
[2021-07-05] MEDS: GABAPENTIN 100 MG CAPSULE PO SCH ×3 (06:56→21:47)
[2021-07-05] MEDS: BUPRENORPHINE/NALOXONE 4 MG/1 MG FILM PACKET SL SCH (10:29)
[2021-07-05] MEDS: DOCUSATE SODIUM 100 MG CAPSULE (FP) PO SCH ×2 (10:29→21:47)
[2021-07-05] MEDS: PRENATAL VITAMINS W/ FOLIC ACID TABLET (FP) PO SCH (10:29)
[2021-07-05] MEDS: FLUoxetine HCL 10 MG CAPSULE PO SCH (10:29)
[2021-07-05] MEDS: TOLNAFTATE 1% CREAM 15 GM TUBE TP SCH ×2 (10:30→21:49)
[2021-07-05] MEDS: lamoTRIgine 25 MG TABLET PO SCH ×2 (10:31→21:47)
[2021-07-05] MEDS: NICOTINE 10 MG CARTRIDGE (INHALER) IH PRN ×3 (10:51→20:05)
[2021-07-05] MEDS ORDERED: METHOCARBAMOL 500 MG TABLET PO PRN (10:53)
[2021-07-05] MEDS ORDERED: PT OWN MED DRAWER 7, Y5N ONE (19:36)
[2021-07-05] MEDS: ACETAMINOPHEN 325 MG TABLET (FP) PO PRN (20:05)
[2021-07-05] MEDS: LURASIDONE HCL 40 MG TABLET PO SCH (20:06)
[2021-07-05] MEDS: THIAMINE HCL 100 MG TABLET (FP) PO SCH (21:46)
[2021-07-05] MEDS: traZODone HCL 50 MG TABLET (FP) PO SCH (21:47)
[2021-07-06] MEDS: GABAPENTIN 100 MG CAPSULE PO SCH ×3 (06:55→21:40)
[2021-07-06] MEDS: NICOTINE 10 MG CARTRIDGE (INHALER) IH PRN ×3 (06:56→21:43)
[2021-07-06] MEDS: FLUoxetine HCL 10 MG CAPSULE PO SCH (10:27)
[2021-07-06] MEDS: lamoTRIgine 25 MG TABLET PO SCH ×2 (10:27→21:39)
[2021-07-06] MEDS: DOCUSATE SODIUM 100 MG CAPSULE (FP) PO SCH ×2 (10:27→21:40)
[2021-07-06] MEDS: PRENATAL VITAMINS W/ FOLIC ACID TABLET (FP) PO SCH (10:27)
[2021-07-06] MEDS: BUPRENORPHINE/NALOXONE 4 MG/1 MG FILM PACKET SL SCH (10:27)
[2021-07-06] MEDS: TOLNAFTATE 1% CREAM 15 GM TUBE TP SCH ×2 (10:28→21:40)
[2021-07-06] MEDS: TETRAHYDROZOLINE HCL EYE DROPS OD PRN (14:37)
[2021-07-06] MEDS ORDERED: lamoTRIgine 25 MG TABLET PO SCH (15:00)
[2021-07-06 15:31] VITALS: BP 103/60; PULSE 74
[2021-07-06] MEDS ORDERED: PT OWN MED DRAWER 7, Y5N ONE ×2 (20:20→22:14)
[2021-07-06] MEDS: LURASIDONE HCL 40 MG TABLET PO SCH (20:38)
[2021-07-06] MEDS: THIAMINE HCL 100 MG TABLET (FP) PO SCH (21:40)
[2021-07-06] MEDS: traZODone HCL 50 MG TABLET (FP) PO SCH (21:40)
[2021-07-07] MEDS: GABAPENTIN 100 MG CAPSULE PO SCH ×3 (06:47→21:46)
[2021-07-07] MEDS: FLUoxetine HCL 10 MG CAPSULE PO SCH (10:31)
[2021-07-07] MEDS: PRENATAL VITAMINS W/ FOLIC ACID TABLET (FP) PO SCH (10:31)
[2021-07-07] MEDS: BUPRENORPHINE/NALOXONE 4 MG/1 MG FILM PACKET SL SCH (10:31)
[2021-07-07] MEDS: DOCUSATE SODIUM 100 MG CAPSULE (FP) PO SCH ×2 (10:31→21:47)
[2021-07-07] MEDS: TOLNAFTATE 1% CREAM 15 GM TUBE TP SCH ×2 (10:33→21:51)
[2021-07-07] MEDS: lamoTRIgine 25 MG TABLET PO SCH ×3 (10:33→22:15)
[2021-07-07] MEDS: ACETAMINOPHEN 325 MG TABLET (FP) PO PRN ×2 (10:34→21:51)
[2021-07-07] MEDS: NICOTINE 10 MG CARTRIDGE (INHALER) IH PRN ×3 (10:34→17:41)
[2021-07-07] MEDS: TETRAHYDROZOLINE HCL EYE DROPS OD PRN (13:28)
[2021-07-07] MEDS: LURASIDONE HCL 40 MG TABLET PO SCH (21:46)
[2021-07-07] MEDS: traZODone HCL 50 MG TABLET (FP) PO SCH (21:47)
[2021-07-07] MEDS: THIAMINE HCL 100 MG TABLET (FP) PO SCH (21:47)
[2021-07-08] MEDS: GABAPENTIN 100 MG CAPSULE PO SCH ×3 (06:39→21:44)
[2021-07-08] MEDS: DOCUSATE SODIUM 100 MG CAPSULE (FP) PO SCH ×2 (09:54→21:43)
[2021-07-08] MEDS: PRENATAL VITAMINS W/ FOLIC ACID TABLET (FP) PO SCH (09:54)
[2021-07-08] MEDS: FLUoxetine HCL 10 MG CAPSULE PO SCH (09:54)
[2021-07-08] MEDS: BUPRENORPHINE/NALOXONE 4 MG/1 MG FILM PACKET SL SCH (09:54)
[2021-07-08] MEDS: lamoTRIgine 25 MG TABLET PO SCH ×2 (09:55→21:47)
[2021-07-08] MEDS: TOLNAFTATE 1% CREAM 15 GM TUBE TP SCH ×2 (09:56→23:05)
[2021-07-08] MEDS: NICOTINE 10 MG CARTRIDGE (INHALER) IH PRN ×4 (09:57→22:32)
[2021-07-08] MEDS: NICOTINE POLACRILEX 2 MG GUM BUC PRN (13:52)
[2021-07-08] MEDS: ACETAMINOPHEN 325 MG TABLET (FP) PO PRN (15:43)
[2021-07-08] MEDS: traZODone HCL 50 MG TABLET (FP) PO SCH (21:43)
[2021-07-08] MEDS: LURASIDONE HCL 40 MG TABLET PO SCH (21:44)
[2021-07-08] MEDS: THIAMINE HCL 100 MG TABLET (FP) PO SCH (21:44)
[2021-07-09] MEDS: GABAPENTIN 100 MG CAPSULE PO SCH ×3 (06:52→21:47)
[2021-07-09] MEDS: PRENATAL VITAMINS W/ FOLIC ACID TABLET (FP) PO SCH (10:12)
[2021-07-09] MEDS: BUPRENORPHINE/NALOXONE 4 MG/1 MG FILM PACKET SL SCH (10:12)
[2021-07-09] MEDS: FLUoxetine HCL 10 MG CAPSULE PO SCH (10:12)
[2021-07-09] MEDS: TOLNAFTATE 1% CREAM 15 GM TUBE TP SCH ×2 (10:12→21:48)
[2021-07-09] MEDS: DOCUSATE SODIUM 100 MG CAPSULE (FP) PO SCH ×2 (10:12→21:46)
[2021-07-09] MEDS: lamoTRIgine 25 MG TABLET PO SCH ×2 (10:14→21:46)
[2021-07-09] MEDS: NICOTINE 10 MG CARTRIDGE (INHALER) IH PRN ×4 (10:15→22:17)
[2021-07-09] MEDS: NICOTINE POLACRILEX 2 MG GUM BUC PRN (14:02)
[2021-07-09] MEDS: traZODone HCL 50 MG TABLET (FP) PO SCH (21:46)
[2021-07-09] MEDS: LURASIDONE HCL 40 MG TABLET PO SCH (21:46)
[2021-07-09] MEDS: THIAMINE HCL 100 MG TABLET (FP) PO SCH (21:47)
[2021-07-10] MEDS: GABAPENTIN 100 MG CAPSULE PO SCH (07:00)
[2021-07-10] MEDS: DOCUSATE SODIUM 100 MG CAPSULE (FP) PO SCH (09:27)
[2021-07-10] MEDS: PRENATAL VITAMINS W/ FOLIC ACID TABLET (FP) PO SCH (09:27)
[2021-07-10] MEDS: FLUoxetine HCL 10 MG CAPSULE PO SCH (09:27)
[2021-07-10] MEDS: lamoTRIgine 25 MG TABLET PO SCH (09:28)
[2021-07-10] MEDS: TOLNAFTATE 1% CREAM 15 GM TUBE TP SCH (09:29)
[2021-07-10] MEDS: NICOTINE 10 MG CARTRIDGE (INHALER) IH PRN (09:29)
[2021-07-10] MEDS ORDERED: BUPRENORPHINE/NALOXONE 4 MG/1 MG FILM PACKET SL SCH (10:00)
== END 2021-07-10 10:10 | disposition other institution (70) | DRG 772 ==
LOC: YASAS 11:40 → Y3W 14:31 → Y5N 06-21 14:58
PROVIDERS: ADMIT Allergy & Immunology; ATTEND Allergy & Immunology
PROC: HZ42ZZZ Group Counseling for Substance Abuse Treatment, Cognitive-Behavioral (ICD-10-PCS; principal; 2021-06-19)
DX: F11.20 Opioid dependence, uncomplicated (principal); F14.20 Cocaine dependence, uncomplicated; F13.20 Sedative, hypnotic or anxiolytic dependence, uncomplicated; F12.20 Cannabis dependence, uncomplicated; F17.210 Nicotine dependence, cigarettes, uncomplicated; F19.280 Other psychoactive substance dependence with psychoactive substance-induced anxiety disorder; F19.282 Other psychoactive substance dependence with psychoactive substance-induced sleep disorder; F19.24 Other psychoactive substance dependence with psychoactive substance-induced mood disorder; F31.81 Bipolar II disorder; F41.9 Anxiety disorder, unspecified; F43.10 Post-traumatic stress disorder, unspecified; G47.00 Insomnia, unspecified; J45.909 Unspecified asthma, uncomplicated; H04.121 Dry eye syndrome of right lacrimal gland; K59.00 Constipation, unspecified; L70.8 Other acne; B35.1 Tinea unguium; Z86.16 Personal history of COVID-19; Z87.440 Personal history of urinary (tract) infections; Z51.81 Encounter for therapeutic drug level monitoring; Z88.0 Allergy status to penicillin; Z88.8 Allergy status to other drugs, medicaments and biological substances; Z56.0 Unemployment, unspecified; Z59.0 Homelessness
CPT/HCPCS: 36415; 80053; 81003; 81025; 84702; 85027; 86780; 86803; 87389; J0735